=== PATIENT | female | born 1940 | race Caucasian/White ===

== ENCOUNTER → 2017-12-16 11:38 | Outpatient (CLI) | payer MEDICARE, SELFPAY ==
[2017-12-16 14:05] LABS: Absolute Lymphocyte Count 1.22 X10^3/ul (0.83-4.51); Basophil# 0.07 X10^3/uL; Basophil% 1.9 % (0-1); Eosinophil# 0.09 X10^3/uL; Eosinophils% 2.4 % (0-5); Hematocrit 38.8 % (37-47); Hemoglobin 12.6 g/dl (12.0-15.0); Lymphocyte # 1.22 X10^3/ul (4.0); Lymphocyte % 32.5 % (19-41); Mean Corp Hgb Conc 32.5 g/gl (32-36); Mean Corpuscular Hgb 30.7 pg (27.0-32.0); Mean Corpuscular Volume 94.6 fL (81-99); Mean Platelet Vol. 10.5 fl (6.2-12.0); Monocyte# 0.34 X10^3/uL; Monocyte% 9.1 % (0-10); Neutrophil # 2.02 X10^3/uL (2.7-7.7); Neutrophil % 53.8 % (47-70); Platelet Count 271 K/mm3 (150-450); RBC Distribution Width CV 13.1 % (11.6-14.6); RBC Distribution Width SD 45.6 fl (35.1-43.9); White Blood Count 3.8 K/mm3 (4.4-11.0)
[2017-12-16 14:06] LABS: POSITIVE COUNT NO; POSITIVE DIFFERENTIAL NO; POSITIVE MORPHOLOGY NO
[2017-12-16 14:25] LABS: Vitamin B12 369 pg/mL (211-911); Vitamin D,25 Hydroxy 33.8 ng/mL
[2017-12-16 14:29] LABS: AST(SGOT) 24 U/L (15-37); Alanine Aminotransfer ALT/SGPT 22 U/L (12-78); Albumin, Serum 3.9 g/dL (3.4-5.0); Alkaline Phosphatase 30 U/L (45-117); Anion Gap 7 (5-15); BUN 31 mg/dL (7-18); Calcium,Total 9.1 mg/dL (8.5-10.1); Chloride 101 mmol/L (98-107); Creatinine, Serum 1.15 mg/dL (0.55-1.02); EST Glomerular Filtration Rate 48 mL/min (>60); Est Glom Filt Rate - Afr Amer 59 mL/min (>60); Ferritin 146 ng/mL (8-252); Globulin 3.8 g/dL (2.2-4.2); Glucose 70 mg/dL (70-110); Potassium 3.5 mmol/L (3.5-5.1); Protein, Total 7.7 g/dL (6.4-8.2); Sodium Level 140 mmol/L (136-145); T4 Free Direct 1.04 ng/dL (0.76-1.46); Thyroid Stim Hormone (TSH) 1.12 uIU/mL (0.358-3.74)
[2017-12-16 14:42] LABS: Microalbumin,Random Urine 9.6 mg/L (NO RANGE EST.); Microalbumin:Creatinine Ratio 14.1 mg/g CRE (<30 mg/g CRE)
== END ==
PROVIDERS: Family Provider Family Medicine; PCP Family Medicine; Visit Provider Family Medicine
DX: I25.5 Ischemic cardiomyopathy (principal); E53.8 Deficiency of other specified B group vitamins; E03.9 Hypothyroidism, unspecified; R53.83 Other fatigue
CPT/HCPCS: 36415; 80053; 82043; 82306; 82570; 82607; 82728; 82746; 84439; 84443; 85025

== ENCOUNTER 2018-06-14 10:32 | Inpatient (IN) | payer MEDICARE, SELFPAY ==
[2018-06-14] VITALS (10 sets, daily range): BP systolic 113–144; BP diastolic 52–81; PULSE 60–83; RESP 13–19; TEMP 36.4–36.9; O2SAT 92–100; BMI 26.5; BMI 25.0
--- NOTE | 2018-06-14 10:43 | RAD_ITS ---
STUDY: X-RAY CHEST REASON FOR EXAM: Female, 78 years old. Shortness of breath TECHNIQUE: Single AP portable view of the chest. COMPARISON: 09/26/2016 FINDINGS: EKG leads overlie the chest. Stable appearance of a left subclavian pacemaker There are interstitial fibrotic changes of the lungs. There is no demonstrated pleural abnormality. Sternal cerclage wires and vascular clips are present from a prior sternotomy and coronary artery bypass graft procedure (CABG). Normal mediastinum and oc. Normal visualized pulmonary arteries. There is atherosclerotic calcification of the aortic arch with tortuosity. There are diffuse degenerative changes of the visualized thoracic spine. Normal visualized ribs, clavicles, and shoulders. There is no demonstrated abnormality of the visualized soft tissue structures of the upper abdomen. RAD/Chest 1 View (Portable) IMPRESSION: Degenerative changes, as described above. No demonstrated acute cardiopulmonary process. No interval change Electronically Signed: Eamon Moreland MD at 11:19 EDT , Service support ,
--- NOTE | 2018-06-14 10:43 | EKG12_ITS ---
Test Reason : Blood Pressure : / mmHG Vent. Rate : 072 BPM Atrial Rate : 072 BPM P-R Int : 144 ms QRS Dur : 210 ms QT Int : 512 ms P-R-T Axes : 000 -84 111 degrees QTc Int : 560 ms AV dual-paced rhythm Abnormal ECG Confirmed by ESTEFANÍA VELÁZQUEZ, ZULEYMA ([id number]), medical transcription editor CHRISTO NG ([id number]) on 06/16/2018 1:38:27 PM Referred By: Brenden Hamm Confirmed By:ZULEYMA JOSÉ MD
[2018-06-14 10:57] LABS: Absolute Lymphocyte Count 0.88 X10^3/ul (0.83-4.51); Absolute Neutrophil Count 1.2 X10^3/uL (2.0-7.7); Basophil# 0.05 X10^3/uL; Eosinophil# 0.09 X10^3/uL; Eosinophils% 3.5 % (0-5); Hematocrit 34.3 % (37-47); Hemoglobin 11.6 g/dl (12.0-15.0); Lymphocyte # 0.88 X10^3/ul (4.0); Lymphocyte % 34.6 % (19-41); Mean Corp Hgb Conc 33.8 g/gl (32-36); Mean Corpuscular Hgb 31.7 pg (27.0-32.0); Mean Corpuscular Volume 93.7 fL (81-99); Mean Platelet Vol. 10.5 fl (6.2-12.0); Monocyte# 0.28 X10^3/uL; Neutrophil # 1.24 X10^3/uL (2.7-7.7); Neutrophil % 48.9 % (47-70); POSITIVE COUNT NO; POSITIVE DIFFERENTIAL NO; POSITIVE MORPHOLOGY NO; Platelet Count 236 K/mm3 (150-450); RBC Distribution Width CV 12.5 % (11.6-14.6); RBC Distribution Width SD 41.6 fl (35.1-43.9); Red Blood Count 3.66 M/mm3 (4.2-5.4); White Blood Count 2.5 K/mm3 (4.4-11.0)
[2018-06-14 11:11] LABS: Anion Gap 8 (5-15); BUN 48 mg/dL (7-18); Calcium,Total 8.7 mg/dL (8.5-10.1); Chloride 104 mmol/L (98-107); Creatinine, Serum 1.92 mg/dL (0.55-1.02); EST Glomerular Filtration Rate 27 mL/min (>60); Est Glom Filt Rate - Afr Amer 32 mL/min (>60); Estimated Creatinine Clearance 21.38 ml/min; Glucose 144 mg/dL (74-106); Sodium Level 142 mmol/L (136-145)
--- NOTE | 2018-06-14 12:53 | ED.VISSUMM ---
- ER Visit Summary Date of Service: 06/14/18 Chief Complaint: Syncopal episode History of Present Illness: The patient is a 78 F who arrived by ambulance after witnessed syncopal episode. Syncopal episode was witnessed by and 2 nursing aides. She had no prodrome. She was diaphoretic and apparently complained of nausea. She has no recall of what occurred. She states she woke up. She was told she passed out. There was no seizure activity. Is no incontinence of urine or stool. There is no postictal state. She denies biting her lip or tongue. She presently complains of nausea and generalized weakness. Review of systems otherwise unremarkable. Her daughter informed us that she has history of coronary disease, CHF, nonischemic cardiomyopathy, hypertension, hypercholesterolemia and prior CVA. She had a similar presentation when she was diagnosed with an [place]. Physical Examination: Vital signs are normal. She is not febrile nor is she hypoxic. Head is atraumatic normocephalic. Pupils are equal round reactive. Extraocular muscles are intact. TMs are pearly white with landmarks noted. Nares patent with no drainage. Posterior pharynx without erythema or exudate. Uvula is midline. There is no dysphonia or dysphasia. Trachea is midline. There is no stridor with auscultation of the neck. There is a well-healed median sternotomy scar noted. Heart is regular without murmur, gallop or rub. S1 and S2 are normal. Lungs are clear to auscultation with good movement of air bilaterally. Abdomen is soft nontender. No palpable, pulsatile mass or abdominal bruit. There is no hepatosplenomegaly. Lower extremity exam is remarkable for pitting edema. PT pulses palpable bilaterally and symmetric. Neuro exam is nonfocal. Test Results: EKG reveals AV sequential paced rhythm. CBC is remarkable for neutropenia, which patient had in the past. Anemia which is chronic. Troponins less than 0.015. Glucose elevated 144 and creatinine is 1.92. Most recent creatinine is 1.15. Emergency Department Course and Treatment: To evaluate patient's syncopal episode obtain an EKG and appropriate blood work. Treatment Plan: Since she had no prodrome presentation similar to when she had an [place] hospitalist has been called for admission with consult to for you is her barrel cutter. Disposition: PCU Impression: 1. Syncope 2. Acute kidney injury 3. Nonischemic cardia myopathy 4. History of coronary disease status post bypass surgery 5. History of hypertension 6. History of CVA This note was generated with [employer] dictation software. It may contain incorrect words, spelling, and punctuation that were not noted in review of the chart prior to signing ED Disposition - Plan for ED Patient: Chief Complaint: Syncope Referrals: Paul Cho MD [Primary Care Provider] -
--- NOTE | 2018-06-14 12:59 | ED.DCSUM_ITS ---
- ER Visit Summary Date of Service: 06/14/18 Chief Complaint: Syncopal episode History of Present Illness: The patient is a 78 F who arrived by ambulance after witnessed syncopal episode. Syncopal episode was witnessed by and 2 nursing aides. She had no prodrome. She was diaphoretic and apparently complained of nausea. She has no recall of what occurred. She states she woke up. She was told she passed out. There was no seizure activity. Is no incontinence of urine or stool. There is no postictal state. She denies biting her lip or tongue. She presently complains of nausea and generalized weakness. Review of systems otherwise unremarkable. Her daughter informed us that she has history of coronary disease, CHF, nonischemic cardiomyopathy, hypertension, hypercholesterolemia and prior CVA. She had a similar presentation when she was diagnosed with an [place]. Physical Examination: Vital signs are normal. She is not febrile nor is she hypoxic. Head is atraumatic normocephalic. Pupils are equal round reactive. Extraocular muscles are intact. TMs are pearly white with landmarks noted. Nares patent with no drainage. Posterior pharynx without erythema or exudate. Uvula is midline. There is no dysphonia or dysphasia. Trachea is midline. There is no stridor with auscultation of the neck. There is a well-healed median sternotomy scar noted. Heart is regular without murmur, gallop or rub. S1 and S2 are normal. Lungs are clear to auscultation with good movement of air bilaterally. Abdomen is soft nontender. No palpable, pulsatile mass or abdominal bruit. There is no hepatosplenomegaly. Lower extremity exam is remarkable for pitting edema. PT pulses palpable bilaterally and symmetric. Neuro exam is nonfocal. Test Results: EKG reveals AV sequential paced rhythm. CBC is remarkable for neutropenia, which patient had in the past. Anemia which is chronic. Troponins less than 0.015. Glucose elevated 144 and creatinine is 1.92. Most recent creatinine is 1.15. Emergency Department Course and Treatment: To evaluate patient's syncopal episode obtain an EKG and appropriate blood work. 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 Disposition: PCU Impression: 1. Syncope 2. Acute kidney injury 3. Nonischemic cardia myopathy 4. History of coronary disease status post bypass surgery 5. History of hypertension 6. History of CVA This note was generated with [employer] dictation software. It may contain incorrect words, spelling, and punctuation that were not noted in review of the chart prior to signing ED Disposition - Plan for ED Patient: Chief Complaint: Syncope Referrals: Paul Cho MD [Primary Care Provider] -
--- NOTE | 2018-06-14 13:20 | CM.ED ---
Social Work Note Call from pt's daughter, Laura, requesting that SW speak with pt and spouse regarding SNF. Introduced self and role at [facility]. The pt is accompanied by her spouse, daughter and granddaughter. Daughter, Gustavo, requests to speak with SW outside of the room, and granddaughter, Carmen, accompanies. Gustavo states that the pt is not strong enough to take care of herself right now, and certainly not strong enough to take care of her spouse either. Claims that she and her sisters check on them daily and assist with meals and management of the home. They express concern with the pt's forgetfulness stating that the pt fed her spouse, and had forgotten she had already eaten too. Discuss that the pt and her spouse would have to be agreeable to placement, and then insurance would have to approve placement and if they do it would not be long-term, but only short-term for the duration of time it takes to regain strength. Understanding expressed. SW accompanied Gustavo and Carmen back into the room to discuss with pt and spouse. Pt reports to live with her spouse in a split level home. They do have to access each floor as the laundry is on the lowest level, kitchen is on the second, and bedroom is on the third. Pt denies access issues with the steps and claims there is a handrail. Granddaughter, Carmen, does express concern with falls and states that they have fallen in the past and the home is hardwood floors. Pt denies using DME for ambulation and reports that they do have a walk-in shower, grab bars and shower chair. Pt reports be independent with ADL's such as dressing and bathing, but reports that her family does assist with meal preparation. Discuss with the pt that PT/OT would be ordered throughout her stay and inquire if they recommended SNF if she would consider this option. Pt states yes. Spouse and her discuss that their PCP - Dr. Cho discussed this with them and recommended it as well. Review list of facilities that are in network with insurance and pt and spouse would like a referral made to [facility] [place]. List of in network facilities left with pt and spouse to review and informed that SW would initiate referral and pass along to the SW on the assigned unit. No further questions at this time. Placed call to Vidya Jarquin, vegetable preparer, at [facility], and faxed referral for review at [phone]. SW to continue to follow and assist with discharge planning. Plan: SNF pending acceptance and pre-cert. Carmen Alcazar, CARD CUTTER HELPER, SCREW MACHINE TENDER
--- NOTE | 2018-06-14 13:31 | NURSING ---
Johnson notified patient may transfer to PCU.
--- NOTE | 2018-06-14 13:51 | ECHOD_ITS ---
Reason For Study: Syncope Procedure This was a 2D Doppler, Color Flow transthoracic echocardiogram. Exam performed portable in patient room. Left Ventricle Mild concentric left ventricular hypertrophy. The estimated ejection fraction is 60 %. Paced septal motion. No regional wall motion abnormalities noted. Right Ventricle Normal size and thickness. ICD or pacer leads identified within the right ventricle. Normal systolic function. Atria The left atrium is severely enlarged. The right atrium is mildly enlarged. Normal atrial septum. Mitral Valve Mild diffuse mitral valve thickening. Tricuspid Valve Normal tricuspid valve. Mild (1+) tricuspid valve insufficiency. Right ventricular systolic pressure estimated to be 38 mmHg. Mild pulmonary hypertension. Aortic Valve Trisinus/trileaflet aortic valve. Mild diffuse aortic valve thickening. Trivial aortic valve insufficiency. Pulmonic Valve Normal pulmonic valve. Moderate (2+) pulmonic valve insufficiency. Great Vessels Normal aortic root. Normal arch. Normal inferior vena cava. Inferior vena cava collapse with sniff. Pericardium/Pleural No pericardial effusion. MMode/2D Measurements & Calculations LVIDd: 4.2 cm IVSd: 1.4 cm Ao root diam: 3.4 cm LVIDs: 2.7 cm LVPWd: 1.3 cm LA dimension: 3.7 cm FS: 35.4 % LAV(MOD-bp): 81.8 ml LVAd ap4: 23.3 cm2 SV(MOD-sp4): 31.7 ml LAV(MOD-bp) Indexed: 46.7 ml/m2 EDV(MOD-sp4): 63.3 ml LAV(MOD-sp2): 58.2 ml EDV(sp4-el): 64.3 ml LAV(MOD-sp4): 99.4 ml LVAs ap4: 15.2 cm2 ESV(MOD-sp4): 31.6 ml ESV(sp4-el): 30.3 ml EF(MOD-sp4): 50.1 % EF(sp4-el): 52.9 % SV(sp4-el): 34.0 ml LA A4 area: 27.4 cm2 RA A4 area: 21.0 cm2 Time Measurements MV dec time: 0.21 sec Doppler Measurements & Calculations MV E max ryan: 80.6 cm/sec Lat Peak E' Ryan: 11.2 cm/sec MV V2 max: 82.0 cm/sec MV A max ryan: 31.7 cm/sec E/E' lat: 7.2 MV max P.7 mmHg MV E/A: 2.5 MV V2 mean: 34.3 cm/sec MV mean P.63 mmHg MV V2 VTI: 19.5 cm MV P1/2t max ryan: 82.0 cm/sec Ao V2 max: 133.9 cm/sec LV V1 max: 76.8 cm/sec MV P1/2t: 63.7 msec Ao max P.2 mmHg LV V1 max P.4 mmHg MV dec slope: 376.8 cm/sec2 Ao V2 mean: 89.6 cm/sec LV V1 mean P.1 mmHg MVA(P1/2t): 3.5 cm2 Ao mean P.7 mmHg LV V1 mean: 48.2 cm/sec Ao V2 VTI: 28.0 cm LV V1 VTI: 13.9 cm PA V2 max: 71.0 cm/sec PI dec slope: 185.2 cm/sec2 TR max ryan: 287.8 cm/sec TR max P.1 mmHg Interpretation Summary Mild concentric left ventricular hypertrophy. The estimated ejection fraction is 60 %. The left atrium is severely enlarged. The right atrium is mildly enlarged. Mild (1+) tricuspid valve insufficiency. Right ventricular systolic pressure estimated to be 38 mmHg. Mild pulmonary hypertension. Trivial aortic valve insufficiency. Compared to echo report dated 09/20/2016, LV function has improved from 45% to 60 %. RVSP has worsened from 30 to 38 mm Hg. Ordering Physician: Vincent Monet Referring Physician: Brenden Hamm Performed By: Sae Long RCS
--- NOTE | 2018-06-14 13:51 | CDU_ITS ---
Reason For Study: Syncope Rt. Velocities/BP Lt. Velocities/BP Prox CCA 95/11 cm/sec. Prox CCA 84/18 cm/sec. Mid CCA 85/15 cm/sec. Mid CCA 78/12 cm/sec. Dist CCA 68/13 cm/sec. Dist CCA 57/11 cm/sec. Prox ICA 108/21 cm/sec. Prox ICA 63/18 cm/sec. Mid ICA 63/13 cm/sec. Mid ICA 94/26 cm/sec. Dist ICA 62/16 cm/sec. Dist ICA 120/31 cm/sec. Rt. ICA/CCA = 1.27. Lt. ICA/CCA = 1.54. Prox ECA 79/6 cm/sec. Prox ECA 86/5 cm/sec. Rt. Vert. 73/13 cm/sec. Lt. Vert. 72/14 cm/sec. Right Extracranial There is heterogeneous, irregular atherosclerotic plaque noted in the right common carotid artery. There is heterogeneous, irregular atherosclerotic plaque noted in the right internal carotid artery. There is heterogeneous, irregular atherosclerotic plaque noted in the right external carotid artery. Antegrade flow is noted in the right vertebral artery. Left Extracranial There is heterogeneous, irregular atherosclerotic plaque noted in the left common carotid artery. There is heterogeneous, irregular atherosclerotic plaque noted in the left internal carotid artery. There is heterogeneous, irregular atherosclerotic plaque noted in the left external carotid artery. Antegrade flow is noted in the left vertebral artery. Procedure Carotid Duplex 21983. Exam performed portable in patient room. Interpretation Summary Mild (<50%) stenosis right extracranial internal carotid. Mild (<50%) stenosis left extracranial internal carotid. Flow within the vertebral arteries is antegrade bilaterally. Ordering Physician: Vincent Monet Referring Physician: Paul Cho Performed By: Gale Stephenson, RDOFELIA, RVT
[2018-06-14] MEDS: Gabapentin 300 MG Capsule PO (16:03)
--- NOTE | 2018-06-14 17:27 | PCM.CONS.C ---
Problem List (1) Syncope Status: Acute (2) Old non-ST elevation myocardial infarction (NSTEMI) Status: Chronic (3) Atherosclerosis of coronary artery of [place] heart without angina pectoris Status: Chronic Comment: CABG x 1 BRITO-LAD 04/22/2014 (4) H/O coronary artery bypass surgery Status: Chronic Comment: CABG x 1 BRITO-LAD 04/22/2014 @ [facility] (5) Presence of cardiac pacemaker Status: Chronic Comment: @ [facility] 04/25/14 RA Lead Revision 04/26/14 (6) Chronic atrial fibrillation Status: Chronic (7) Hypertension Status: Chronic (8) Hyperlipidemia Status: Chronic Reason for Consult Date of Consultation: 06/14/18 Reason for Consultation: Syncope, coronary disease, hypertension, atrial fibrillation, previous CVA History of Present Illness: The patient is a 78 year old F, patient of Dr. Pineda with a history of atrial fibrillation Eliquis, hypertension, hypercholesterolemia, ischemic cardiomyopathy, coronary artery disease status post single-vessel bypass surgery BRITO to the LAD in the past. The patient was standing in her kitchen talking to her who is being assisted by to physical therapy nurses, when she began developing nausea, diaphoresis, lightheadedness and apparently was intercepted from hitting the floor during a syncopal event. She had no seizure-like activity, loss of bowel or bladder function, and was placed in a chair. She spontaneously awoke, and was brought to [facility] ER. Initially her EKG showed AV pacing with left bundle branch pattern, but she had no chest pain symptoms. She reports that she had a CVA about 4 years ago but despite this is fairly active at home. Prior to this event she denied any previous syncope, chest pain or angina. Orthostatic evaluation was negative, and we are awaiting pacemaker evaluation. 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 She has had no changes in her gabapentin or other medications. [] Past Medical History Allergies/Adverse Reactions: Allergies No Known Allergies Allergy (Verified 06/14/18 10:37) Home Medications: Ambulatory Orders Medication Instructions Recorded Fenofibrate [Lofibra] 160 mg PO DAILY 11/21/13 Levothyroxine [Synthroid] 50 mcg PO DAILY 11/21/13 Escitalopram Oxalate [Lexapro] 20 mg PO DAILY #30 tab 05/16/14 Apixaban [Eliquis] 5 mg PO BID 02/25/15 Iron Poly/Vit C [Niferex-150] 150 mg PO DAILYCM #30 cap 08/22/15 Pantoprazole Sodium [Protonix] 40 mg PO DAILY #30 tab 08/22/15 Ezetimibe [Zetia] 10 mg PO QHS 09/18/16 Furosemide [Lasix] 40 mg PO DAILY 09/18/16 Potassium Chloride [Klor-Con M20] 20 meq PO DAILY 09/18/16 carbamazepine 100 mg chewable 100 mg PO TID 04/22/18 tablet carvedilol 12.5 mg tablet 12.5 mg PO BID 04/22/18 gabapentin 300 mg capsule 300 mg PO TID cap 04/22/18 losartan 100 mg tablet 100 mg PO QDAY #90 tab 05/23/18 Cholecalciferol (Vitamin D3) 2,000 unit PO DAILY 06/14/18 [Vitamin D3] Past Medical History (Chronic Problems): Chronic Problems (Last Reviewed 05/05/18 @ 18:08 by Rylan Kruse MD) Chronic diastolic heart failure (Chronic) Non-ischemic cardiomyopathy (Chronic) SA node dysfunction (Chronic) Old non-ST elevation myocardial infarction (NSTEMI) (Chronic) CVA (cerebral vascular accident) (Chronic) Atherosclerosis of coronary artery of [place] heart without angina pectoris (Chronic) CABG x 1 BRITO-LAD 04/22/2014 H/O coronary artery bypass surgery (Chronic 04/22/14) CABG x 1 BRITO-LAD 04/22/2014 @ [facility] Presence of cardiac pacemaker (Chronic 04/25/14) @ [facility] 04/25/14 RA Lead Revision 04/26/14 Chronic atrial fibrillation (Chronic) Hypertension (Chronic) Hyperlipidemia (Chronic) Surgical History: coronary bypass surgery, pacemaker implantation, - - Hemorrhoidectomy. 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 PIER WORKER History: No pertinent PIER WORKER history - *Family History Paternal Family History: Family History (Last Reviewed 05/05/18 @ 18:08 by Rylan Kruse MD) Father CAD (coronary artery disease) Sister CAD (coronary artery disease) Myocardial infarction Hypertension History Items: No pertinent history Maternal Family History: Family History (Last Reviewed 05/05/18 @ 18:08 by Rylan Kruse MD) Father CAD (coronary artery disease) Sister CAD (coronary artery disease) Myocardial infarction Hypertension History Items: Heart Disease, Hypertension Smoking Status: Former smoker Review of Systems - Review of Systems General: Denies: Fever, Night Sweats, Fatigue Cardiovascular: Reports: Near Syncope. Denies: Chest Discomfort, Shortness of Breath, Orthopnea, PND, Peripheral Edema, Palpitations, Lightheadedness, Dizziness, Syncope Respiratory: Denies: Cough, Sputum Production, Hemoptysis Gastrointestinal: Denies: Hematemesis, Hematochezia, Melena Genitourinary: Denies: Dysuria, Hematuria Skin: Denies: Rash Subjectve: Patient sitting in bed, no acute distress. Objective: Vital Signs Temp Pulse Resp BP Pulse Ox 97.8 F 60 15 132/69 H 99 06/14/18 14:20 06/14/18 16:30 06/14/18 14:20 06/14/18 16:30 06/14/18 14:20 Oxygen Flow Rate (L/min) 2 Oxygen Delivery Method Nasal Cannula Weight: 150 lb 5.684 oz Body Mass Index (BMI) 25.0 Orthostatic Vital Signs Start: 06/14/18 16:30 Freq: q24h Status: Active Protocol: Activity Type Activity Date Activity User E-Sign Co-Sign Detail Recorded Client Recorded Date Recorded By Document 06/14/18 16:30 DS [id number] 06/14/18 17:26 DS 06/14/18 16:30 Orthostatic Vitals Standing -Blood Pressure (90/60-120/80) 133/72 H -Extremity Use Left Arm -Pulse Rate (60-100) 60 Sitting -Blood Pressure (90/60-120/80) 144/73 H -Extremity Use Left Arm -Pulse Rate (60-100) 60 Lying -Blood Pressure (90/60-120/80) 132/69 H -Extremity Use Left Arm -Pulse Rate (60-100) 60 General: Awake, Alert, Oriented x 3 HEENT: PERRL, EOMI, Sclera Non Icteric Neck: Supple, Good ROM, No Lymph Node Enlargement Lungs: Clear to auscultation Cardiovascular: Regular Rhythm, Normal S1, Normal S2, No Murmurs, No Rubs, No Gallops Vascular: No Carotid Bruits, Normal Femoral Pulses, Normal Radial Pulses, Normal Dorsalis Pedal Pulse, Normal Posterior Tibial Pulses Abdomen: Bowel Sounds Present, Soft, Non Tender, No HSM, No Organomegaly Extremities: No Cyanosis, No Clubbing, No edema Neurological: No Focal Motor or Sensory Deficit 06/14/18 15:05: Troponin I < 0.015 Rhythm: EKG: ECHO: Stress Test: Cardiac Cath: PCI: CT Surgery: Holter monitor: EPS: PPM: CXR: Chest CT Scan: Assessment/Plan 1. Syncope: Patient appears to have had either presyncopal or syncopal episode while standing in her kitchen. It is possible this may be vasovagal induced or perhaps a problem with her pacemaker. I recommended a pacemaker evaluation. She does not appear to be orthostatic at this time. Code Visit Inpatient E&M: 66718 Init Hosp L2
[2018-06-14] MEDS: carBAMazepine 200 MG Tablet 100 MG PO ×2 (17:31→21:39)
--- NOTE | 2018-06-14 17:37 | CON.PCM_ITS ---
Problem List (1) Syncope Status: Acute (2) Old non-ST elevation myocardial infarction (NSTEMI) Status: Chronic (3) Atherosclerosis of coronary artery of [place] heart without angina pectoris Status: Chronic Comment: CABG x 1 BRITO-LAD 04/22/2014 (4) H/O coronary artery bypass surgery Status: Chronic Comment: CABG x 1 BRITO-LAD 04/22/2014 @ [facility] (5) Presence of cardiac pacemaker Status: Chronic Comment: @ [facility] 04/25/14 RA Lead Revision 04/26/14 (6) Chronic atrial fibrillation Status: Chronic (7) Hypertension Status: Chronic (8) Hyperlipidemia Status: Chronic Reason for Consult Date of Consultation: 06/14/18 Reason for Consultation: Syncope, coronary disease, hypertension, atrial fibrillation, previous CVA History of Present Illness: The patient is a 78 year old F, patient of Dr. Pineda with a history of atrial fibrillation Eliquis, hypertension, hypercholesterolemia, ischemic cardiomyopathy, coronary artery disease status post single-vessel bypass surgery BRITO to the LAD in the past. The patient was standing in her kitchen talking to her who is being assisted by to physical therapy nurses, when she began developing nausea, diaphoresis, lightheadedness and apparently was intercepted from hitting the floor during a syncopal event. She had no seizure-like activity, loss of bowel or bladder function, and was placed in a chair. She spontaneously awoke, and was brought to [facility] ER. Initially her EKG showed AV pacing with left bundle branch pattern, but she had no chest pain symptoms. She reports that she had a CVA about 4 years ago but despite this is fairly active at home. Prior to this event she denied any previous syncope, chest pain or angina. Orthostatic evaluation was negative, and we are awaiting pacemaker evaluation. 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 She has had no changes in her gabapentin or other medications. [] Past Medical History Allergies/Adverse Reactions: Allergies No Known Allergies Allergy (Verified 06/14/18 10:37) Home Medications: Ambulatory Orders Medication Instructions Recorded Fenofibrate [Lofibra] 160 mg PO DAILY 11/21/13 Levothyroxine [Synthroid] 50 mcg PO DAILY 11/21/13 Escitalopram Oxalate [Lexapro] 20 mg PO DAILY #30 tab 05/16/14 Apixaban [Eliquis] 5 mg PO BID 02/25/15 Iron Poly/Vit C [Niferex-150] 150 mg PO DAILYCM #30 cap 08/22/15 Pantoprazole Sodium [Protonix] 40 mg PO DAILY #30 tab 08/22/15 Ezetimibe [Zetia] 10 mg PO QHS 09/18/16 Furosemide [Lasix] 40 mg PO DAILY 09/18/16 Potassium Chloride [Klor-Con M20] 20 meq PO DAILY 09/18/16 carbamazepine 100 mg chewable 100 mg PO TID 04/22/18 tablet carvedilol 12.5 mg tablet 12.5 mg PO BID 04/22/18 gabapentin 300 mg capsule 300 mg PO TID cap 04/22/18 losartan 100 mg tablet 100 mg PO QDAY #90 tab 05/23/18 Cholecalciferol (Vitamin D3) 2,000 unit PO DAILY 06/14/18 [Vitamin D3] Past Medical History (Chronic Problems): Chronic Problems (Last Reviewed 05/05/18 @ 18:08 by Rylan Kruse MD) Chronic diastolic heart failure (Chronic) Non-ischemic cardiomyopathy (Chronic) SA node dysfunction (Chronic) Old non-ST elevation myocardial infarction (NSTEMI) (Chronic) CVA (cerebral vascular accident) (Chronic) Atherosclerosis of coronary artery of [place] heart without angina pectoris ( Chronic) CABG x 1 BRITO-LAD 04/22/2014 H/O coronary artery bypass surgery (Chronic 04/22/14) CABG x 1 BRITO-LAD 04/22/2014 @ [facility] Presence of cardiac pacemaker (Chronic 04/25/14) @ [facility] 04/25/14 RA Lead Revision 04/26/14 Chronic atrial fibrillation (Chronic) Hypertension (Chronic) Hyperlipidemia (Chronic) Surgical History: coronary bypass surgery, pacemaker implantation, - - Hemorrhoidectomy. 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 [employer]ING History: No pertinent [employer] history - *Family History Paternal Family History: Family History (Last Reviewed 05/05/18 @ 18:08 by Rylan Kruse MD) Father CAD (coronary artery disease) Sister CAD (coronary artery disease) Myocardial infarction Hypertension History Items: No pertinent history Maternal Family History: Family History (Last Reviewed 05/05/18 @ 18:08 by Rylan Kruse MD) Father CAD (coronary artery disease) Sister CAD (coronary artery disease) Myocardial infarction Hypertension History Items: Heart Disease, Hypertension Smoking Status: Former smoker Review of Systems - Review of Systems General: Denies: Fever, Night Sweats, Fatigue Cardiovascular: Reports: Near Syncope. Denies: Chest Discomfort, Shortness of Breath, Orthopnea, PND, Peripheral Edema, Palpitations, Lightheadedness, Dizziness, Syncope Respiratory: Denies: Cough, Sputum Production, Hemoptysis Gastrointestinal: Denies: Hematemesis, Hematochezia, Melena Genitourinary: Denies: Dysuria, Hematuria Skin: Denies: Rash Subjectve: Patient sitting in bed, no acute distress. Objective: Vital Signs Temp Pulse Resp BP Pulse Ox 97.8 F 60 15 132/69 H 99 06/14/18 14:20 06/14/18 16:30 06/14/18 14:20 06/14/18 16:30 06/14/18 14:20 Oxygen Flow Rate (L/min) 2 Oxygen Delivery Method Nasal Cannula Weight: 150 lb 5.684 oz Body Mass Index (BMI) 25.0 Orthostatic Vital Signs Start: 06/14/18 16:30 Freq: q24h Status: Active Protocol: Activity Type Activity Date Activity User E-Sign Co-Sign Detail Recorded Client Recorded Date Recorded By Document 06/14/18 16:30 DS [id number] 06/14/18 17:26 DS 06/14/18 16:30 Orthostatic Vitals Standing -Blood Pressure (90/60-120/80) 133/72 H -Extremity Use Left Arm -Pulse Rate (60-100) 60 Sitting -Blood Pressure (90/60-120/80) 144/73 H -Extremity Use Left Arm -Pulse Rate (60-100) 60 Lying -Blood Pressure (90/60-120/80) 132/69 H -Extremity Use Left Arm -Pulse Rate (60-100) 60 General: Awake, Alert, Oriented x 3 HEENT: PERRL, EOMI, Sclera Non Icteric Neck: Supple, Good ROM, No Lymph Node Enlargement Lungs: Clear to auscultation Cardiovascular: Regular Rhythm, Normal S1, Normal S2, No Murmurs, No Rubs, No Gallops Vascular: No Carotid Bruits, Normal Femoral Pulses, Normal Radial Pulses, Normal Dorsalis Pedal Pulse, Normal Posterior Tibial Pulses Abdomen: Bowel Sounds Present, Soft, Non Tender, No HSM, No Organomegaly Extremities: No Cyanosis, No Clubbing, No edema Neurological: No Focal Motor or Sensory Deficit 06/14/18 15:05: Troponin I < 0.015 Rhythm: EKG: ECHO: Stress Test: Cardiac Cath: PCI: CT Surgery: Holter monitor: EPS: PPM: CXR: Chest CT Scan: Assessment/Plan 1. Syncope: Patient appears to have had either presyncopal or syncopal episode while standing in her kitchen. It is possible this may be vasovagal induced or perhaps a problem with her pacemaker. I recommended a pacemaker evaluation. She does not appear to be orthostatic at this time. Code Visit Inpatient E&M: 93172 Init Hosp L2
--- NOTE | 2018-06-14 19:23 | PCM.HP.STD ---
Problem List (1) Syncope Status: Acute Qualifiers: Syncope type: vasovagal syncope Qualified Code(s): R55 - Syncope and collapse History of Present Illness Date of Admission: 06/14/18 Chief Complaint: Syncope The patient is a 78 year old F seen in the emergency room at [facility] after experiencing a presyncopal episode at home while she was seated at a table in her kitchen. Patient does not remember the event, the syncopal episode was witnessed by her who stated that he was in the kitchen and she began to look pale and he asked her to sit down on a chair. After she sat down on the chair, she collapsed briefly and nurses aides were in the room and caught the patient from falling out of the chair. Patient's stated that the patient was only out for less than a minute. Patient had no incontinence, there is no seizure activity noted by the patient's family, again patient does not recall what exactly happened during the episode. Patient denies any chest pain or shortness of breath. Patient has a history of ischemic cardiomyopathy and has a pacemaker. Evaluation in the emergency room included labs which were remarkable for a white blood cell count of 2.5, hemoglobin was 11.6, creatinine was 1.92, and BUN was 48. Glucose was 144. Patient's chest x-ray showed no evidence of CHF, EKG showed a paced rhythm. Patient was admitted to PCU for acute syncopal episode, she will be seen in consultation by cardiology, she will have a carotid duplex study performed, she will have an echocardiogram performed, and she will have her pacemaker interrogated. She will be monitored on telemetry and have cardiac enzymes cycled Past Medical History Past Medical History (Chronic Problems): Chronic Problems (Last Updated 06/14/18 @ 19:34 by Vincent Monet DO) Chronic diastolic heart failure (Chronic) SA node dysfunction (Chronic) Old non-ST elevation myocardial infarction (NSTEMI) (Chronic) CVA (cerebral vascular accident) (Chronic) Atherosclerosis of coronary artery of [place] heart without angina pectoris (Chronic) CABG x 1 BRITO-LAD 04/22/2014 H/O coronary artery bypass surgery (Chronic 04/22/14) CABG x 1 BRITO-LAD 04/22/2014 @ [facility] Presence of cardiac pacemaker (Chronic 04/25/14) @ [facility] 04/25/14 RA Lead Revision 04/26/14 Chronic atrial fibrillation (Chronic) Hypertension (Chronic) Hyperlipidemia (Chronic) Medical History: Medical History (Last Updated 06/14/18 @ 19:34 by Vincent Monet DO) Chronic diastolic heart failure (Chronic) I50.32 Non-ischemic cardiomyopathy (Ruled-out) I42.8 SA node dysfunction (Chronic) I49.5 Old non-ST elevation myocardial infarction (NSTEMI) (Chronic) I25.2 CVA (cerebral vascular accident) (Chronic) I63.9 Atherosclerosis of coronary artery of [place] heart without angina pectoris (Chronic) I25.10 CABG x 1 BRITO-LAD 04/22/2014 Chronic atrial fibrillation (Chronic) I48.2 Hypertension (Chronic) I10 Hyperlipidemia (Chronic) E78.5 Anemia D64.9 Anxiety F41.9 GERD (gastroesophageal reflux disease) K21.9 GI bleed K92.2 Hiatal hernia K44.9 Hypothyroidism E03.9 Liver cyst K76.89 Obstructive sleep apnea G47.33 Allergies No Known Allergies Allergy (Verified 06/14/18 10:37) Home Medications: Ambulatory Orders Medication Instructions Recorded Fenofibrate [Lofibra] 160 mg PO DAILY 11/21/13 Levothyroxine [Synthroid] 50 mcg PO DAILY 11/21/13 Escitalopram Oxalate [Lexapro] 20 mg PO DAILY #30 tab 05/16/14 Apixaban [Eliquis] 5 mg PO BID 02/25/15 Iron Poly/Vit C [Niferex-150] 150 mg PO DAILYCM #30 cap 08/22/15 Pantoprazole Sodium [Protonix] 40 mg PO DAILY #30 tab 08/22/15 Ezetimibe [Zetia] 10 mg PO QHS 09/18/16 Furosemide [Lasix] 40 mg PO DAILY 09/18/16 Potassium Chloride [Klor-Con M20] 20 meq PO DAILY 09/18/16 carbamazepine 100 mg chewable 100 mg PO TID 04/22/18 tablet carvedilol 12.5 mg tablet 12.5 mg PO BID 04/22/18 gabapentin 300 mg capsule 300 mg PO TID cap 04/22/18 losartan 100 mg tablet 100 mg PO QDAY #90 tab 05/23/18 Cholecalciferol (Vitamin D3) 2,000 unit PO DAILY 07/25/18 [Vitamin D3] Surgical History: Surgical History (Last Reviewed 05/05/18 @ 18:08 by Rylan Kruse MD) H/O coronary artery bypass surgery (Chronic) Onset Date: 04/22/14 Z95.1 CABG x 1 BRITO-LAD 04/22/2014 @ [facility] Presence of cardiac pacemaker (Chronic) Onset Date: 04/25/14 Z95.0 @ [facility] 04/25/14 RA Lead Revision 04/26/14 History of left heart catheterization Onset Date: 02/27/15 Z98.890 04/16/14 @ [facility] and 02/27/2015 @ [facility] Surgical History: cataract, coronary bypass surgery, pacemaker implantation, - - Hemorrhoidectomy. 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 Lives: Spouse/ Significant Other Smoking Status: Former smoker Tobacco Use: Non-smoker Alcohol: None Drugs: None - *Family History Paternal Family History: Family History (Last Reviewed 05/05/18 @ 18:08 by Rylan Kruse MD) Father CAD (coronary artery disease) Sister CAD (coronary artery disease) Myocardial infarction Hypertension History Items: No pertinent history Maternal Family History: Family History (Last Reviewed 05/05/18 @ 18:08 by Rylan Kruse MD) Father CAD (coronary artery disease) Sister CAD (coronary artery disease) Myocardial infarction Hypertension History Items: Heart Disease, Hypertension Review of Systems Constitutional: Denies: Anorexia, Chills, Fever, Night Sweats, Malaise, Weakness, Weight Change, Fatigue Eyes: Denies: Blurred vision, Cataracts, Conjunctivae Inflammation, Double vision, Drainage HEENT: Denies: Difficulty Swallowing, Dysphasia, Ear Pain, Eye Pain, Hearing Changes, Nasal bleeding, Nasal Congestion, Post Nasal Drip Cardiovascular: Reports: Syncope. Denies: Chest Pain, Claudication, Chest Pressure, Chest Tightness, Edema, Heaviness, Orthopnea, Palpitations, Paroxysmal Noc. Dyspnea Respiratory: Denies: Cough, Hemoptysis, Pleuritic Pain, Shortness of Breath, Shortness of breath at rest, Shortness of breath upon exertion, Sputum production Gastrointestinal: Denies: Abdominal Pain, Constipation, Diarrhea, Hematemesis, Hematochezia, Nausea, Melena, Vomiting Genitourinary: Denies: Dysuria, Frequency, Hematuria, Hesitancy, Urgency Gynecological: Denies: Breast symptoms Musculoskeletal: Denies: Back Pain, Foot Pain, Hand Pain, Joint Pain, Joint stiffness, Joint swelling, Joint Tenderness, Leg Pain Skin: Denies: Dryness, Jaundice, Pruritis, Rash Neurological: Denies: Blurred vision, Double vision, Slurred speech, Difficulty swallowing, Focal weakness, Headaches, Numbness, Tingling Psychiatric: Denies: Anxiety, Depression, Homicidal Ideations, Suicidal Ideations Endocrine: Denies: Change in Body Habitus, Heat/ Cold Intolerance, Polydipsia, Polyuria Hematologic/ Lymphatic: Denies: Adenopathy, Anemia, Easy Bruising, Easy Bleeding, Petechiae, Purpura VTE Information - Inpt Only VTE Present on Admission: No VTE Mechan Device Prophylaxis: None VTE Pharm Prophylaxis ordered?: No Reason prophylaxis not ordered:: Medical Contraindication - on Eliquis Patient Problems: Active and Suspected Problems (Last Updated 06/14/18 @ 19:34 by Vincent Monet DO) Syncope (Acute) - Physical Exam General: Alert, Oriented x3, Cooperative, No apparent distress, Well developed, Well nourished HEENT: Atraumatic, PERRLA, EOMI, Normocephalic Oral: Moist Mucosa Neck: Supple, No JVD, Negative Carotid Bruits Lungs: Clear to auscultation, Normal air movement, No rhonchi, No wheeze, No rales Cardiovascular: Regular rate, Regular Rhythm, Normal S1, Normal S2, No murmurs, PMI Normal, No rub noted, No Gallop Abdomen: Bowel Sounds Present, Soft, Non Tender, Non-Distended, No hernias noted Extremities: No clubbing, No cyanosis, No edema, Capillary Refill Less than 3 Seconds Skin: No rashes, No breakdown Musculoskeletal: No Tenderness to Palpation of Joints or Extremities Neurological: Cranial nerves II-XII grossly intact, Neuro grossly intact, Muscle tone normal, Sensory exam intact to light touch and pain Psych/Mental Status: Appropriate, Flat Affect, Alert and oriented to time, place, person, mood and affect Vital Signs Temp Pulse Resp BP Pulse Ox 97.8 F 60 15 132/69 H 99 06/14/18 14:20 06/14/18 16:30 06/14/18 14:20 06/14/18 16:30 07/25/18 14:20 Oxygen Flow Rate (L/min) 2 Oxygen Delivery Method Nasal Cannula Weight: 68.2 kg Body Mass Index (BMI) 25.0 Orthostatic Vital Signs Start: 06/14/18 16:30 Freq: q24h Status: Active Protocol: Activity Type Activity Date Activity User E-Sign Co-Sign Detail Recorded Client Recorded Date Recorded By Document 06/14/18 16:30 DS [id number] 06/14/18 17:26 DS 06/14/18 16:30 Orthostatic Vitals Standing -Blood Pressure (90/60-120/80) 133/72 H -Extremity Use Left Arm -Pulse Rate (60-100) 60 Sitting -Blood Pressure (90/60-120/80) 144/73 H -Extremity Use Left Arm -Pulse Rate (60-100) 60 Lying -Blood Pressure (90/60-120/80) 132/69 H -Extremity Use Left Arm -Pulse Rate (60-100) 60 Intake and Output for Last 24 Hours 06/12/18 06/13/18 06/14/18 23:59 23:59 23:59 Intake Total 480 / 480 Balance 480 / 480 Laboratory Tests Past 24 Hrs 06/14/18 06/14/18 15:05 16:57 Troponin I < 0.015 < 0.015 Assessment/Plan All Active Problems (Last Updated 06/14/18 @ 19:34 by Vincent Monet DO) Syncope (Acute) Non-ischemic cardiomyopathy (Ruled-out) Chest pain (Resolved) #1 syncopal episode-probably vasovagal in nature, patient will be admitted to PCU, she will have an echocardiogram ordered, she will be seen in consultation by cardiology, she will have carotid duplex scans performed, she will have her pacemaker interrogated, cardiac enzymes will be cycled #2 elevated creatinine-I suspect this may be due to dehydration, her normal creatinine is much lower, I will place her on IV fluids at 75 cc an hour and hold her Lasix, I will repeat her labs tomorrow #3 coronary artery disease-believed to be stable at this time #4 ischemic cardiomyopathy-echocardiogram will be obtained #5 leukopenia-this appears to be chronic in nature and mild, etiology is unknown at this time #6 hypertension #7 cerebrovascular disease #8 chronic atrial fibrillation with paced rhythm Code Visit Inpatient E&M: 43941 Init Hosp L3
--- NOTE | 2018-06-14 19:26 | HP.PCM_ITS ---
Problem List (1) Syncope Status: Acute Qualifiers: Syncope type: vasovagal syncope Qualified Code(s): R55 - Syncope and collapse History of Present Illness Date of Admission: 06/14/18 Chief Complaint: Syncope The patient is a 78 year old F seen in the emergency room at [facility] after experiencing a presyncopal episode at home while she was seated at a table in her kitchen. Patient does not remember the event, the syncopal episode was witnessed by her who stated that he was in the kitchen and she began to look pale and he asked her to sit down on a chair. After she sat down on the chair, she collapsed briefly and nurses aides were in the room and caught the patient from falling out of the chair. Patient's stated that the patient was only out for less than a minute. Patient had no incontinence, there is no seizure activity noted by the patient's family, again patient does not recall what exactly happened during the episode. Patient denies any chest pain or shortness of breath. Patient has a history of ischemic cardiomyopathy and has a pacemaker. Evaluation in the emergency room included labs which were remarkable for a white blood cell count of 2.5, hemoglobin was 11.6, creatinine was 1.92, and BUN was 48. Glucose was 144. Patient's chest x-ray showed no evidence of CHF, EKG showed a paced rhythm. Patient was admitted to PCU for acute syncopal episode, she will be seen in consultation by cardiology, she will have a carotid duplex study performed, she will have an echocardiogram performed, and she will have her pacemaker interrogated. She will be monitored on telemetry and have cardiac enzymes cycled Past Medical History Past Medical History (Chronic Problems): Chronic Problems (Last Updated 06/14/18 @ 19:34 by Vincent Monet DO) Chronic diastolic heart failure (Chronic) SA node dysfunction (Chronic) Old non-ST elevation myocardial infarction (NSTEMI) (Chronic) CVA (cerebral vascular accident) (Chronic) Atherosclerosis of coronary artery of [place] heart without angina pectoris ( Chronic) CABG x 1 BRITO-LAD 04/22/2014 H/O coronary artery bypass surgery (Chronic 04/22/14) CABG x 1 BRITO-LAD 04/22/2014 @ [facility] Presence of cardiac pacemaker (Chronic 04/25/14) @ [facility] 04/25/14 RA Lead Revision 04/26/14 Chronic atrial fibrillation (Chronic) Hypertension (Chronic) Hyperlipidemia (Chronic) Medical History: Medical History (Last Updated 06/14/18 @ 19:34 by Vincent Monet DO) Chronic diastolic heart failure (Chronic) I50.32 Non-ischemic cardiomyopathy (Ruled-out) I42.8 SA node dysfunction (Chronic) I49.5 Old non-ST elevation myocardial infarction (NSTEMI) (Chronic) I25.2 CVA (cerebral vascular accident) (Chronic) I63.9 Atherosclerosis of coronary artery of [place] heart without angina pectoris ( Chronic) I25.10 CABG x 1 BRITO-LAD 04/22/2014 Chronic atrial fibrillation (Chronic) I48.2 Hypertension (Chronic) I10 Hyperlipidemia (Chronic) E78.5 Anemia D64.9 Anxiety F41.9 GERD (gastroesophageal reflux disease) K21.9 GI bleed K92.2 Hiatal hernia K44.9 Hypothyroidism E03.9 Liver cyst K76.89 Obstructive sleep apnea G47.33 Allergies No Known Allergies Allergy (Verified 06/14/18 10:37) Home Medications: Ambulatory Orders Medication Instructions Recorded Fenofibrate [Lofibra] 160 mg PO DAILY 11/21/13 Levothyroxine [Synthroid] 50 mcg PO DAILY 11/21/13 Escitalopram Oxalate [Lexapro] 20 mg PO DAILY #30 tab 05/16/14 Apixaban [Eliquis] 5 mg PO BID 02/25/15 Iron Poly/Vit C [Niferex-150] 150 mg PO DAILYCM #30 cap 08/22/15 Pantoprazole Sodium [Protonix] 40 mg PO DAILY #30 tab 08/22/15 Ezetimibe [Zetia] 10 mg PO QHS 09/18/16 Furosemide [Lasix] 40 mg PO DAILY 09/18/16 Potassium Chloride [Klor-Con M20] 20 meq PO DAILY 09/18/16 carbamazepine 100 mg chewable 100 mg PO TID 04/22/18 tablet carvedilol 12.5 mg tablet 12.5 mg PO BID 04/22/18 gabapentin 300 mg capsule 300 mg PO TID cap 04/22/18 losartan 100 mg tablet 100 mg PO QDAY #90 tab 05/23/18 Cholecalciferol (Vitamin D3) 2,000 unit PO DAILY 07/25/18 [Vitamin D3] Surgical History: Surgical History (Last Reviewed 05/05/18 @ 18:08 by Rylan Kruse MD) H/O coronary artery bypass surgery (Chronic) Onset Date: 04/22/14 Z95.1 CABG x 1 BRITO-LAD 04/22/2014 @ [facility] Presence of cardiac pacemaker (Chronic) Onset Date: 04/25/14 Z95.0 @ [facility] 04/25/14 RA Lead Revision 04/26/14 History of left heart catheterization Onset Date: 02/27/15 Z98.890 04/16/14 @ [facility] and 02/27/2015 @ [facility] Surgical History: cataract, coronary bypass surgery, pacemaker implantation, - - Hemorrhoidectomy. 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 [employer] History: No pertinent [employer] history Lives: Spouse/ Significant Other Smoking Status: Former smoker Tobacco Use: Non-smoker Alcohol: None Drugs: None - *Family History Paternal Family History: Family History (Last Reviewed 05/05/18 @ 18:08 by Rylan Kruse MD) Father CAD (coronary artery disease) Sister CAD (coronary artery disease) Myocardial infarction Hypertension History Items: No pertinent history Maternal Family History: Family History (Last Reviewed 05/05/18 @ 18:08 by Rylan Kruse MD) Father CAD (coronary artery disease) Sister CAD (coronary artery disease) Myocardial infarction Hypertension History Items: Heart Disease, Hypertension Review of Systems Constitutional: Denies: Anorexia, Chills, Fever, Night Sweats, Malaise, Weakness , Weight Change, Fatigue Eyes: Denies: Blurred vision, Cataracts, Conjunctivae Inflammation, Double vision, Drainage HEENT: Denies: Difficulty Swallowing, Dysphasia, Ear Pain, Eye Pain, Hearing Changes, Nasal bleeding, Nasal Congestion, Post Nasal Drip Cardiovascular: Reports: Syncope. Denies: Chest Pain, Claudication, Chest Pressure, Chest Tightness, Edema, Heaviness, Orthopnea, Palpitations, Paroxysmal Noc. Dyspnea Respiratory: Denies: Cough, Hemoptysis, Pleuritic Pain, Shortness of Breath, Shortness of breath at rest, Shortness of breath upon exertion, Sputum production Gastrointestinal: Denies: Abdominal Pain, Constipation, Diarrhea, Hematemesis, Hematochezia, Nausea, Melena, Vomiting Genitourinary: Denies: Dysuria, Frequency, Hematuria, Hesitancy, Urgency Gynecological: Denies: Breast symptoms Musculoskeletal: Denies: Back Pain, Foot Pain, Hand Pain, Joint Pain, Joint stiffness, Joint swelling, Joint Tenderness, Leg Pain Skin: Denies: Dryness, Jaundice, Pruritis, Rash Neurological: Denies: Blurred vision, Double vision, Slurred speech, Difficulty swallowing, Focal weakness, Headaches, Numbness, Tingling Psychiatric: Denies: Anxiety, Depression, Homicidal Ideations, Suicidal Ideations Endocrine: Denies: Change in Body Habitus, Heat/ Cold Intolerance, Polydipsia, Polyuria Hematologic/ Lymphatic: Denies: Adenopathy, Anemia, Easy Bruising, Easy Bleeding , Petechiae, Purpura VTE Information - Inpt Only VTE Present on Admission: No VTE Mechan Device Prophylaxis: None VTE Pharm Prophylaxis ordered?: No Reason prophylaxis not ordered:: Medical Contraindication - on Eliquis Patient Problems: Active and Suspected Problems (Last Updated 06/14/18 @ 19:34 by Vincent Monet DO) Syncope (Acute) - Physical Exam General: Alert, Oriented x3, Cooperative, No apparent distress, Well developed, Well nourished HEENT: Atraumatic, PERRLA, EOMI, Normocephalic Oral: Moist Mucosa Neck: Supple, No JVD, Negative Carotid Bruits Lungs: Clear to auscultation, Normal air movement, No rhonchi, No wheeze, No rales Cardiovascular: Regular rate, Regular Rhythm, Normal S1, Normal S2, No murmurs, PMI Normal, No rub noted, No Gallop Abdomen: Bowel Sounds Present, Soft, Non Tender, Non-Distended, No hernias noted Extremities: No clubbing, No cyanosis, No edema, Capillary Refill Less than 3 Seconds Skin: No rashes, No breakdown Musculoskeletal: No Tenderness to Palpation of Joints or Extremities Neurological: Cranial nerves II-XII grossly intact, Neuro grossly intact, Muscle tone normal, Sensory exam intact to light touch and pain Psych/Mental Status: Appropriate, Flat Affect, Alert and oriented to time, place , person, mood and affect Vital Signs Temp Pulse Resp BP Pulse Ox 97.8 F 60 15 132/69 H 99 06/14/18 14:20 06/14/18 16:30 06/14/18 14:20 06/14/18 16:30 07/25/18 14:20 Oxygen Flow Rate (L/min) 2 Oxygen Delivery Method Nasal Cannula Weight: 68.2 kg Body Mass Index (BMI) 25.0 Orthostatic Vital Signs Start: 06/14/18 16:30 Freq: q24h Status: Active Protocol: Activity Type Activity Date Activity User E-Sign Co-Sign Detail Recorded Client Recorded Date Recorded By Document 06/14/18 16:30 DS [id number] 06/14/18 17:26 DS 06/14/18 16:30 Orthostatic Vitals Standing -Blood Pressure (90/60-120/80) 133/72 H -Extremity Use Left Arm -Pulse Rate (60-100) 60 Sitting -Blood Pressure (90/60-120/80) 144/73 H -Extremity Use Left Arm -Pulse Rate (60-100) 60 Lying -Blood Pressure (90/60-120/80) 132/69 H -Extremity Use Left Arm -Pulse Rate (60-100) 60 Intake and Output for Last 24 Hours 06/12/18 06/13/18 06/14/18 23:59 23:59 23:59 Intake Total 480 / 480 Balance 480 / 480 Laboratory Tests Past 24 Hrs 06/14/18 06/14/18 15:05 16:57 Troponin I < 0.015 < 0.015 Assessment/Plan All Active Problems (Last Updated 06/14/18 @ 19:34 by Vincent Monet DO) Syncope (Acute) Non-ischemic cardiomyopathy (Ruled-out) Chest pain (Resolved) #1 syncopal episode-probably vasovagal in nature, patient will be admitted to PCU, she will have an echocardiogram ordered, she will be seen in consultation by cardiology, she will have carotid duplex scans performed, she will have her pacemaker interrogated, cardiac enzymes will be cycled #2 elevated creatinine-I suspect this may be due to dehydration, her normal creatinine is much lower, I will place her on IV fluids at 75 cc an hour and hold her Lasix, I will repeat her labs tomorrow #3 coronary artery disease-believed to be stable at this time #4 ischemic cardiomyopathy-echocardiogram will be obtained #5 leukopenia-this appears to be chronic in nature and mild, etiology is unknown at this time #6 hypertension #7 cerebrovascular disease #8 chronic atrial fibrillation with paced rhythm Code Visit Inpatient E&M: 40299 Init Hosp L3
[2018-06-14] MEDS: APIXABAN 5 MG TABLET PO (21:40)
[2018-06-14] MEDS: Ezetimibe 10 MG Tablet PO (21:40)
[2018-06-14] MEDS: Carvedilol 12.5 MG Tablet PO (21:40)
[2018-06-14] MEDS: 0.9% Normal Saline 1,000 ML 100 ML IV (21:48)
[2018-06-15] VITALS (11 sets, daily range): BP systolic 119–182; BP diastolic 62–82; PULSE 59–63; RESP 16–18; TEMP 36.3–36.8; O2SAT 93–96
[2018-06-15] MEDS: Calcium Carbonate 500 MG Tablet PO ×2 (02:25→16:50)
[2018-06-15] MEDS: Levothyroxine 50 MCG Tablet PO (05:22)
[2018-06-15] MEDS: carBAMazepine 200 MG Tablet 100 MG PO ×2 (05:22→21:20)
[2018-06-15 05:46] LABS: Hematocrit 36.6 % (37-47); Hemoglobin 12.5 g/dl (12.0-15.0); Mean Corp Hgb Conc 34.2 g/gl (32-36); Mean Corpuscular Hgb 31.8 pg (27.0-32.0); Mean Corpuscular Volume 93.1 fL (81-99); Mean Platelet Vol. 10.8 fl (6.2-12.0); Platelet Count 230 K/mm3 (150-450); RBC Distribution Width CV 12.3 % (11.6-14.6); RBC Distribution Width SD 41.4 fl (35.1-43.9); Red Blood Count 3.93 M/mm3 (4.2-5.4); White Blood Count 3.1 K/mm3 (4.4-11.0)
[2018-06-15 05:47] LABS: International Normalized Ratio 1.2; Partial Thromboplast Time 34.5 Seconds (24.1-36.2); Prothrombin Time (Protime)PT. 15.5 SECONDS (11.7-14.9)
[2018-06-15] MEDS: Losartan Potassium 100 MG Tablet PO (05:52)
--- NOTE | 2018-06-15 05:55 | EKG12_ITS ---
Test Reason : AM EKG Blood Pressure : / mmHG Vent. Rate : 060 BPM Atrial Rate : 066 BPM P-R Int : 154 ms QRS Dur : 216 ms QT Int : 530 ms P-R-T Axes : 000 -83 115 degrees QTc Int : 530 ms AV dual-paced rhythm Abnormal ECG Confirmed by ESTEFANÍA VELÁZQUEZ, ZULEYMA ([id number]), associate entertainment editor CHRISTO NG ([id number]) on 06/16/2018 1:45:20 PM Referred By: Brenden Hamm Confirmed By:ZULEYMA JOSÉ MD
[2018-06-15 06:01] LABS: Anion Gap 6 (5-15); BUN 38 mg/dL (7-18); BUN/Creat Ratio 29.5 RATIO (10-20); Calcium,Total 9.1 mg/dL (8.5-10.1); Chloride 110 mmol/L (98-107); Creatinine, Serum 1.29 mg/dL (0.55-1.02); EST Glomerular Filtration Rate 42 mL/min (>60); Est Glom Filt Rate - Afr Amer 51 mL/min (>60); Estimated Creatinine Clearance 31.82 ml/min; Glucose 99 mg/dL (74-106); Potassium 3.9 mmol/L (3.5-5.1); Sodium Level 147 mmol/L (136-145)
[2018-06-15 06:09] LABS: Scan Indicated on CBC? Y/N NO
--- NOTE | 2018-06-15 08:45 | STE_ITS ---
Reason For Study: Syncope Stress Results Protocol: Dobutamine Stress Echo Maximum Predicted HR: 141 bpm Target HR: 120 bpm% Maximum Pre dicted HR: 87 % DurationHeart Rate Stage (mm:ss) (bpm) BPCom ment Baseline 62 160/80 No Chest Pain DSE 10 MCG 3:17 60 167/76No Chest Pain DSE 20 MCG 3:14 86 173/62No Chest Pain DSE 30 MCG 3:00 90 147/81No Chest Pain DSE 40 MCG 2:46 12 2 129/67No Chest Pain; Atropine 0.25 MG IVP Recovery 61 130/63 No Chest Pain Stress Duration: 12:17 mm:ss Maximum Stress HR: 122 bpmME TS: 1 Baseline Echocardiogram Findings The estimated ejection fraction is 55 %. Stress Echo Wall motion Data Resting WMIntermediate WMStress WM Resting Wall Motion Wall Motion Stress No regional wall motion No regional wall motion abnormalities noted. abnormalities noted. EKG Data AV sequential pacing. The patient was titrated from 10 mcg to a maximum of 40 mcg of dobutamine during the stress. The maximum heart rate attained was 127 beats per minute. This was 90% of maximum predicted heart rate. During dobutamine infusion, there were no ST or T wave changes noted to suggest ischemia. No clinical angina was noted. Interpretation Summary The estimated ejection fraction is 55 %. Normal, adequate, dobutamine echocardiogram. Negative for ischemia by EKG and echocardiographic criteria. No anginal symptoms noted. Patient reverted from AV pacing during the low-dose phase of infusion, and transition into what appears to be a sinus tachycardia with anterolateral T-wave inversion. Appropriate HR response to dobutamine. Rare PVCs noted. No dynamic ST segment changes noted. Final LVEF of 75%. No complications. Ordering Physician: Antonio James Referring Physician: Antonio James Performed By: Ariella Love, ROBERT, RVT
--- NOTE | 2018-06-15 09:46 | PCM.PN.CARD ---
Subjectve: Patient doing well this morning. Telemetry shows AV pacing. No additional syncopal events. No chest pain. Fairly hypertensive today with negative orthostatics. Objective: Vital Signs Temp Pulse Resp BP Pulse Ox 97.4 F L 60 16 171/82 H 93 06/15/18 03:30 06/15/18 07:15 06/15/18 03:30 06/15/18 05:37 06/15/18 03:30 Oxygen Flow Rate (L/min) 2 Oxygen Delivery Method Room Air Weight: 150 lb 5.684 oz Body Mass Index (BMI) 25.0 Orthostatic Vital Signs Start: 06/14/18 16:30 Freq: q24h Status: Active Protocol: Activity Type Activity Date Activity User E-Sign Co-Sign Detail Recorded Client Recorded Date Recorded By Document 06/15/18 05:37 BAM [id number] 06/15/18 05:39 BAM 06/15/18 05:37 Orthostatic Vitals Standing -Blood Pressure (90/60-120/80) 181/79 H -Extremity Use Left Arm -Pulse Rate (60-100) 62 Sitting -Blood Pressure (90/60-120/80) 182/81 H -Extremity Use Left Arm -Pulse Rate (60-100) 63 Lying -Blood Pressure (90/60-120/80) 171/82 H -Extremity Use Left Arm -Pulse Rate (60-100) 61 Intake and Output for Last 24 Hours 06/13/18 06/14/18 06/15/18 23:59 23:59 23:59 Intake Total 682 / 682 544 / 544 Balance 682 / 682 544 / 544 General: Awake, Alert, Oriented x 3 HEENT: PERRL, EOMI, Sclera Non Icteric Neck: Supple, Good ROM, No Lymph Node Enlargement Lungs: Clear to auscultation Cardiovascular: Regular Rhythm, Normal S1, Normal S2, No Murmurs, No Rubs, No Gallops Vascular: No Carotid Bruits, Normal Femoral Pulses, Normal Radial Pulses, Normal Dorsalis Pedal Pulse, Normal Posterior Tibial Pulses Abdomen: Bowel Sounds Present, Soft, Non Tender, No HSM, No Organomegaly Extremities: No Cyanosis, No Clubbing, No edema Neurological: No Focal Motor or Sensory Deficit 06/14/18 15:05: Troponin I < 0.015 06/14/18 16:57: Troponin I < 0.015 06/15/18 05:10: Sodium 147 H, Potassium 3.9, Chloride 110 H, Carbon Dioxide 31.0, Anion Gap 6, BUN 38 H, Creatinine 1.29 H, Est GFR (MDRD) Af Amer 51 L, Est GFR (MDRD) Non-Af 42 L, BUN/Creatinine Ratio 29.5 H, Glucose 99, Calcium 9.1 06/15/18 05:10: WBC 3.1 L, RBC 3.93 L, Hgb 12.5, Hct 36.6 L, MCV 93.1, MCH 31.8, MCHC 34.2, RDW 12.3, RDW Differential 41.4, Plt Count 230, MPV 10.8 06/15/18 05:10: PT 15.5 H, INR 1.2, APTT 34.5 Rhythm: EKG: ECHO: Stress Test: Pending Cardiac Cath: PCI: CT Surgery: Holter monitor: EPS: PPM: CXR: Chest CT Scan: Medical Necessity - Tobacco Use Smoking Status: Former smoker Tobacco Use: Non-smoker Assessment/Plan 1. Syncope: Patient appears to have had either presyncopal or syncopal episode while standing in her kitchen. It is possible this may be vasovagal induced or perhaps a problem with her pacemaker. I recommended a pacemaker evaluation. She does not appear to be orthostatic at this time. In addition, it is possible that she had hypotensive episode which contributed to her syncopal event. Her blood pressure is quite adequate today. Patient feels much better. At this point we will smooth out her antihypertensive medications by changing her losartan from 100 mg's p.o. daily to 50 mg p.o. twice daily, continuing her Coreg at her current dose, and reducing her Lasix down to 20 mg a day. In addition she will undergo a non-walking debridement echocardiogram to determine if she has any ischemia. Her LV function on her echo has improved from 45-60%. If her stress test is negative for inducible ischemia, she will not require a diagnostic coronary angiogram. Pacemaker interrogation is pending. 2. Chronic persistent atrial fibrillation: Continue Eliquis therapy. 3. Thank you very much for the opportunity to participate in the cardiac care of your patient.
--- NOTE | 2018-06-15 09:54 | PN.CARD_ITS ---
Subjectve: Patient doing well this morning. Telemetry shows AV pacing. No additional syncopal events. No chest pain. Fairly hypertensive today with negative orthostatics. Objective: Vital Signs Temp Pulse Resp BP Pulse Ox 97.4 F L 60 16 171/82 H 93 06/15/18 03:30 06/15/18 07:15 06/15/18 03:30 06/15/18 05:37 06/15/18 03:30 Oxygen Flow Rate (L/min) 2 Oxygen Delivery Method Room Air Weight: 150 lb 5.684 oz Body Mass Index (BMI) 25.0 Orthostatic Vital Signs Start: 06/14/18 16:30 Freq: q24h Status: Active Protocol: Activity Type Activity Date Activity User E-Sign Co-Sign Detail Recorded Client Recorded Date Recorded By Document 06/15/18 05:37 BAM [id number] 06/15/18 05:39 BAM 06/15/18 05:37 Orthostatic Vitals Standing -Blood Pressure (90/60-120/80) 181/79 H -Extremity Use Left Arm -Pulse Rate (60-100) 62 Sitting -Blood Pressure (90/60-120/80) 182/81 H -Extremity Use Left Arm -Pulse Rate (60-100) 63 Lying -Blood Pressure (90/60-120/80) 171/82 H -Extremity Use Left Arm -Pulse Rate (60-100) 61 Intake and Output for Last 24 Hours 06/13/18 06/14/18 06/15/18 23:59 23:59 23:59 Intake Total 682 / 682 544 / 544 Balance 682 / 682 544 / 544 General: Awake, Alert, Oriented x 3 HEENT: PERRL, EOMI, Sclera Non Icteric Neck: Supple, Good ROM, No Lymph Node Enlargement Lungs: Clear to auscultation Cardiovascular: Regular Rhythm, Normal S1, Normal S2, No Murmurs, No Rubs, No Gallops Vascular: No Carotid Bruits, Normal Femoral Pulses, Normal Radial Pulses, Normal Dorsalis Pedal Pulse, Normal Posterior Tibial Pulses Abdomen: Bowel Sounds Present, Soft, Non Tender, No HSM, No Organomegaly Extremities: No Cyanosis, No Clubbing, No edema Neurological: No Focal Motor or Sensory Deficit 06/14/18 15:05: Troponin I < 0.015 06/14/18 16:57: Troponin I < 0.015 06/15/18 05:10: Sodium 147 H, Potassium 3.9, Chloride 110 H, Carbon Dioxide 31.0 , Anion Gap 6, BUN 38 H, Creatinine 1.29 H, Est GFR (MDRD) Af Amer 51 L, Est GFR (MDRD) Non-Af 42 L, BUN/Creatinine Ratio 29.5 H, Glucose 99, Calcium 9.1 06/15/18 05:10: WBC 3.1 L, RBC 3.93 L, Hgb 12.5, Hct 36.6 L, MCV 93.1, MCH 31.8 , MCHC 34.2, RDW 12.3, RDW Differential 41.4, Plt Count 230, MPV 10.8 06/15/18 05:10: PT 15.5 H, INR 1.2, APTT 34.5 Rhythm: EKG: ECHO: Stress Test: Pending Cardiac Cath: PCI: CT Surgery: Holter monitor: EPS: PPM: CXR: Chest CT Scan: Medical Necessity - Tobacco Use Smoking Status: Former smoker Tobacco Use: Non-smoker Assessment/Plan 1. Syncope: Patient appears to have had either presyncopal or syncopal episode while standing in her kitchen. It is possible this may be vasovagal induced or perhaps a problem with her pacemaker. I recommended a pacemaker evaluation. She does not appear to be orthostatic at this time. In addition, it is possible that she had hypotensive episode which contributed to her syncopal event. Her blood pressure is quite adequate today. Patient feels much better. At this point we will smooth out her antihypertensive medications by changing her losartan from 100 mg's p.o. daily to 50 mg p.o. twice daily, continuing her Coreg at her current dose, and reducing her Lasix down to 20 mg a day. In addition she will undergo a non-walking debridement echocardiogram to determine if she has any ischemia. Her LV function on her echo has improved from 45-60%. If her stress test is negative for inducible ischemia, she will not require a diagnostic coronary angiogram. Pacemaker interrogation is pending. 2. Chronic persistent atrial fibrillation: Continue Eliquis therapy. 3. Thank you very much for the opportunity to participate in the cardiac care of your patient.
--- NOTE | 2018-06-15 12:07 | CASEMGMT ---
Social Work Met with pt, spouse, dgt Laura and granddgt Carmen. Explained that referral has been made to [facility] and awaiting return call. Pt and spouse both wanting to admit to the [facility] and wanting to share a room. Phone call to Vidya at [facility]. They do have beds available but rooms are private and they cannot provide a room beside each other at this time. They are able to accept pt if they are agreeable to the private rooms. SW met with pt, spouse and granddgt and explained situation. They express understanding and are agreeable. Addition requested information faxed to [facility] with request to start precert. CASH will continue to follow. Plan: [facility], pending insurance precert MILANA Lombardo
[2018-06-15] MEDS: Gabapentin 300 MG Capsule PO (16:50)
--- NOTE | 2018-06-15 19:36 | PCM.PROGNOTE ---
Patient Problems: Active and Suspected Problems (Last Updated 06/14/18 @ 19:34 by Vincent Monet DO) Syncope (Acute) Subjective: Patient was seen and examined today, I talked with her granddaughter who is in the room today as well as her , patient had a dobutamine stress echo today which was negative for reversible ischemia, patient is decided along with her family that she would like to go to an extended care facility for rehab services, PT and OT were written to see the patient and evaluate her today. No obvious reason for her syncope was found, the most likely explanation is probably orthostatic hypotension-patient's creatinine was elevated yesterday, it has corrected somewhat with fluid administration, I have stopped her fluids today because I do not believe she currently needs continued fluid. Cardiology adjusted her cardiac medications to prevent hypotension. - Physical Exam General: Alert, Oriented x3, Cooperative, No apparent distress, Well developed HEENT: Atraumatic, PERRLA, EOMI, Normocephalic Oral: Moist Mucosa Neck: Supple, No JVD, No Nuchal Rigidity, Trachea Midline, Thyroid Normal Size and Texture Lungs: Clear to auscultation, Normal air movement, No rhonchi, No wheeze, No rales Cardiovascular: Regular rate, Regular Rhythm, Normal S1, Normal S2, No murmurs, No Ectopic Activity, PMI Normal, No rub noted, No Gallop Abdomen: Bowel Sounds Present, Soft, Non Tender, Non-Distended, No hernias noted Extremities: No edema, Capillary Refill Less than 3 Seconds Skin: No rashes, No breakdown Musculoskeletal: No Tenderness to Palpation of Joints or Extremities Neurological: Cranial nerves II-XII grossly intact, Neuro grossly intact, Sensory exam intact to light touch and pain Psych/Mental Status: Appropriate, Flat Affect, Alert and oriented to time, place, person, mood and affect Vital Signs Temp Pulse Resp BP Pulse Ox 98.3 F 60 18 119/63 94 06/15/18 15:19 06/15/18 15:19 06/15/18 15:19 06/15/18 15:19 06/15/18 15:19 Oxygen Flow Rate (L/min) 2 Oxygen Delivery Method Room Air Weight: 68.2 kg Body Mass Index (BMI) 25.0 Orthostatic Vital Signs Start: 06/14/18 16:30 Freq: q24h Status: Active Protocol: Activity Type Activity Date Activity User E-Sign Co-Sign Detail Recorded Client Recorded Date Recorded By Document 06/15/18 05:37 BAM [id number] 06/15/18 05:39 BAM 06/15/18 05:37 Orthostatic Vitals Standing -Blood Pressure (90/60-120/80) 181/79 H -Extremity Use Left Arm -Pulse Rate (60-100) 62 Sitting -Blood Pressure (90/60-120/80) 182/81 H -Extremity Use Left Arm -Pulse Rate (60-100) 63 Lying -Blood Pressure (90/60-120/80) 171/82 H -Extremity Use Left Arm -Pulse Rate (60-100) 61 Intake and Output for Last 24 Hours 06/13/18 06/14/18 06/15/18 23:59 23:59 23:59 Intake Total 682 / 682 544 / 544 Balance 682 / 682 544 / 544 Laboratory Tests Past 24 Hrs 06/15/18 06/15/18 06/15/18 05:10 05:10 05:10 WBC 3.1 L RBC 3.93 L Hgb 12.5 Hct 36.6 L MCV 93.1 MCH 31.8 MCHC 34.2 RDW 12.3 RDW Differential 41.4 Plt Count 230 MPV 10.8 PT 15.5 H INR 1.2 APTT 34.5 Sodium 147 H Potassium 3.9 Chloride 110 H Carbon Dioxide 31.0 Anion Gap 6 BUN 38 H Creatinine 1.29 H Estim Creat Clear Calc 31.82 Est GFR (MDRD) Af Amer 51 L Est GFR (MDRD) Non-Af 42 L BUN/Creatinine Ratio 29.5 H Glucose 99 Calcium 9.1 Medical Necessity - Tobacco Use Smoking Status: Former smoker Tobacco Use: Non-smoker Assessment/Plan All Active Problems (Last Updated 06/14/18 @ 19:34 by Vincent Monet DO) Syncope (Acute) Non-ischemic cardiomyopathy (Ruled-out) Chest pain (Resolved) #1 syncopal episode-probably vasovagal in nature, continue PT and OT, family would like patient to go to a halfway facility short-term, social media marketing analyst is working with the patient and her family #2 elevated creatinine-patient's creatinine was 1.29 today, I have stopped her IV fluids #3 coronary artery disease-believed to be stable at this time #4 ischemic cardiomyopathy-echocardiogram will be obtained #5 leukopenia-this appears to be chronic in nature and mild, etiology is unknown at this time #6 hypertension #7 cerebrovascular disease #8 chronic atrial fibrillation with paced rhythm Patient had a dobutamine stress echo performed today which was negative for ischemia Code Visit Inpatient E&M: 31845 Subs Hosp L2
[2018-06-15] MEDS: Carvedilol 12.5 MG Tablet PO (21:20)
[2018-06-15] MEDS: APIXABAN 5 MG TABLET PO (21:20)
[2018-06-15] MEDS: Ezetimibe 10 MG Tablet PO (21:21)
[2018-06-16] VITALS (12 sets, daily range): BP systolic 115–164; BP diastolic 61–79; PULSE 59–63; RESP 18; TEMP 36.3–36.6; O2SAT 92–97
[2018-06-16] MEDS: Levothyroxine 50 MCG Tablet PO (05:10)
[2018-06-16] MEDS: carBAMazepine 200 MG Tablet 100 MG PO ×3 (05:10→21:09)
[2018-06-16] MEDS: Escitalopram Oxalate 20 MG Tablet PO (07:51)
[2018-06-16] MEDS: Pantoprazole Sodium 40 MG Tablet PO (07:51)
[2018-06-16] MEDS: Iron Polysaccharide Complex 150 MG CAPSULE PO (07:51)
[2018-06-16] MEDS: Carvedilol 12.5 MG Tablet PO ×2 (07:51→21:10)
[2018-06-16] MEDS: Fenofibrate 145 MG Tablet PO (07:51)
[2018-06-16] MEDS: Furosemide 20 MG Tablet PO (07:52)
[2018-06-16] MEDS: APIXABAN 5 MG TABLET PO ×2 (07:52→21:09)
[2018-06-16] MEDS: Losartan Potassium 50 MG Tablet PO ×2 (07:53→21:09)
[2018-06-16] MEDS: Gabapentin 300 MG Capsule PO ×3 (07:57→16:24)
[2018-06-16] MEDS: Calcium Carbonate 500 MG Tablet PO ×2 (12:56→20:14)
--- NOTE | 2018-06-16 14:32 | CASEMGMT ---
CASH reviewed PT/OT. OT discontinued their services as she was doing well. PT she walked 150' with no assistive device and contact guard assist. CASH spoke with patient, her , and their daughter. CASH explained there is a good chance patient could get denied as she is doing really well. CASH told them CASH will send information to [facility] and they will start the pre-cert. CASH explained we will not hear today, but we will follow up on Tuesday. Plan: [facility] pending insurance approval. Chelita ESCALANTE MSW
--- NOTE | 2018-06-16 19:41 | PCM.PROGNOTE ---
Patient Problems: Active and Suspected Problems (Last Updated 06/14/18 @ 19:34 by Vincent Monet DO) Syncope (Acute) Subjective: Patient was seen and examined today, she is walking with minimal assistance in the schneider today, PT and OT are working with the patient, family would like to still proceed with having her go to a senior care facility if possible. - Physical Exam General: Alert, Oriented x3, Cooperative, No apparent distress, Well developed HEENT: Atraumatic, PERRLA, EOMI, Normocephalic Oral: Moist Mucosa Neck: Supple, No JVD, No Nuchal Rigidity, Trachea Midline, Thyroid Normal Size and Texture Lungs: Clear to auscultation, Normal air movement, No rhonchi, No wheeze, No rales Cardiovascular: Regular rate, Regular Rhythm, Normal S1, Normal S2, No murmurs, No Ectopic Activity, PMI Normal, No rub noted, No Gallop Abdomen: Bowel Sounds Present, Soft, Non Tender, Non-Distended, No hernias noted Extremities: No clubbing, No cyanosis, No edema, Capillary Refill Less than 3 Seconds Skin: No rashes, No breakdown Musculoskeletal: No Tenderness to Palpation of Joints or Extremities Neurological: Cranial nerves II-XII grossly intact, Neuro grossly intact, Sensory exam intact to light touch and pain Psych/Mental Status: Appropriate, Flat Affect Vital Signs Temp Pulse Resp BP Pulse Ox 97.8 F 60 18 115/61 93 06/16/18 13:40 06/16/18 19:00 06/16/18 13:40 06/16/18 13:40 06/16/18 13:40 Oxygen Flow Rate (L/min) 2 Oxygen Delivery Method Room Air Weight: 68.2 kg Body Mass Index (BMI) 25.0 Orthostatic Vital Signs Start: 06/14/18 16:30 Freq: q24h Status: Active Protocol: Activity Type Activity Date Activity User E-Sign Co-Sign Detail Recorded Client Recorded Date Recorded By Document 06/15/18 05:37 [facility] [id number] 06/15/18 05:39 BAM 06/15/18 05:37 Orthostatic Vitals Standing -Blood Pressure (90/60-120/80) 181/79 H -Extremity Use Left Arm -Pulse Rate (60-100) 62 Sitting -Blood Pressure (90/60-120/80) 182/81 H -Extremity Use Left Arm -Pulse Rate (60-100) 63 Lying -Blood Pressure (90/60-120/80) 171/82 H -Extremity Use Left Arm -Pulse Rate (60-100) 61 Intake and Output for Last 24 Hours 06/14/18 06/15/18 06/16/18 23:59 23:59 23:59 Intake Total 682 / 682 1384 / 1384 240 / 240 Balance 682 / 682 1384 / 1384 240 / 240 Medical Necessity - Tobacco Use Smoking Status: Former smoker Tobacco Use: Non-smoker Assessment/Plan All Active Problems (Last Updated 06/14/18 @ 19:34 by Vincent Monet DO) Syncope (Acute) Non-ischemic cardiomyopathy (Ruled-out) Chest pain (Resolved) #1 syncopal episode-probably vasovagal in nature, continue PT and OT, family would like patient to go to a senior care facility short-term, we will be awaiting insurance approval #2 elevated creatinine-patient's creatinine is probably at baseline now #3 coronary artery disease-believed to be stable at this time #4 ischemic cardiomyopathy-echocardiogram will be obtained #5 leukopenia-this appears to be chronic in nature and mild, etiology is unknown at this time #6 hypertension #7 cerebrovascular disease #8 chronic atrial fibrillation with paced rhythm Code Visit Inpatient E&M: 15166 Subs Hosp L2
[2018-06-16] MEDS: Ezetimibe 10 MG Tablet PO (21:09)
[2018-06-17] VITALS (9 sets, daily range): BP systolic 107–157; BP diastolic 52–64; PULSE 60–67; RESP 16–18; TEMP 36.4–36.7; O2SAT 93–97
[2018-06-17] MEDS: Levothyroxine 50 MCG Tablet PO (05:17)
[2018-06-17] MEDS: carBAMazepine 200 MG Tablet 100 MG PO ×3 (05:17→21:37)
[2018-06-17] MEDS: Iron Polysaccharide Complex 150 MG CAPSULE PO (08:41)
[2018-06-17] MEDS: Gabapentin 300 MG Capsule PO ×3 (08:41→17:01)
[2018-06-17] MEDS: Pantoprazole Sodium 40 MG Tablet PO (10:15)
[2018-06-17] MEDS: Carvedilol 12.5 MG Tablet PO ×2 (10:15→21:37)
[2018-06-17] MEDS: Losartan Potassium 50 MG Tablet PO ×2 (10:16→21:37)
[2018-06-17] MEDS: APIXABAN 5 MG TABLET PO ×2 (10:16→21:37)
[2018-06-17] MEDS: Escitalopram Oxalate 20 MG Tablet PO (10:16)
[2018-06-17] MEDS: Furosemide 20 MG Tablet PO (10:16)
[2018-06-17] MEDS: Fenofibrate 145 MG Tablet PO (10:17)
--- NOTE | 2018-06-17 16:28 | PCM.PROGNOTE ---
Patient Problems: Active and Suspected Problems (Last Updated 06/14/18 @ 19:34 by Vincent Monet DO) Syncope (Acute) Subjective: Patient was seen and examined today, she is resting in bed she voices no complaints. She has had no more episodes of syncope. We are currently awaiting her insurance carrier to approve senior living facility placement. - Physical Exam General: Alert, Oriented x3, Cooperative, No apparent distress, Well developed HEENT: Atraumatic, PERRLA, EOMI, Normocephalic Neck: Supple, No JVD, Negative Carotid Bruits Lungs: Clear to auscultation, Normal air movement, No rhonchi, No wheeze, No rales Cardiovascular: Regular rate - Paced rhythm, Regular Rhythm, Normal S1, Normal S2, No murmurs Abdomen: Bowel Sounds Present, Soft, Non Tender, Non-Distended Extremities: No clubbing, No cyanosis, No edema, Capillary Refill Less than 3 Seconds Skin: No rashes, No breakdown Musculoskeletal: No Tenderness to Palpation of Joints or Extremities Neurological: Cranial nerves II-XII grossly intact, Neuro grossly intact, Sensory exam intact to light touch and pain Psych/Mental Status: Appropriate, Flat Affect Vital Signs Temp Pulse Resp BP Pulse Ox 97.9 F 61 16 108/52 L 94 06/17/18 10:11 06/17/18 10:56 06/17/18 10:11 06/17/18 10:11 06/17/18 10:11 Oxygen Flow Rate (L/min) 2 Oxygen Delivery Method Room Air Weight: 68.2 kg Body Mass Index (BMI) 25.0 Orthostatic Vital Signs Start: 06/14/18 16:30 Freq: q24h Status: Active Protocol: Activity Type Activity Date Activity User E-Sign Co-Sign Detail Recorded Client Recorded Date Recorded By Document 06/15/18 05:37 BAM [id number] 06/15/18 05:39 BAM 06/15/18 05:37 Orthostatic Vitals Standing -Blood Pressure (90/60-120/80) 181/79 H -Extremity Use Left Arm -Pulse Rate (60-100) 62 Sitting -Blood Pressure (90/60-120/80) 182/81 H -Extremity Use Left Arm -Pulse Rate (60-100) 63 Lying -Blood Pressure (90/60-120/80) 171/82 H -Extremity Use Left Arm -Pulse Rate (60-100) 61 Intake and Output for Last 24 Hours 06/15/18 06/16/18 06/17/18 23:59 23:59 23:59 Intake Total 1384 / 1384 480 / 480 240 / 240 Balance 1384 / 1384 480 / 480 240 / 240 Medical Necessity - Tobacco Use Smoking Status: Former smoker Tobacco Use: Non-smoker Assessment/Plan All Active Problems (Last Updated 06/14/18 @ 19:34 by Vincent Monet DO) Syncope (Acute) Chest pain (Resolved) #1 syncopal episode-probably vasovagal in nature, continue PT and OT, family would like patient to go to a senior living facility short-term, we will be awaiting insurance approval, continue present care #2 elevated creatinine-patient's creatinine is probably at baseline now #3 coronary artery disease-believed to be stable at this time #4 Nonischemic cardiomyopathy-patient's ejection fraction has returned to normal at this time, echocardiogram showed a 60% EF #5 leukopenia-this appears to be chronic in nature and mild, etiology is unknown at this time #6 hypertension #7 cerebrovascular disease #8 chronic atrial fibrillation with paced rhythm Code Visit Inpatient E&M: 99941 Subs Hosp L2
--- NOTE | 2018-06-17 16:38 | PN_ITS ---
Patient Problems: Active and Suspected Problems (Last Updated 06/14/18 @ 19:34 by Vincent Monet DO) Syncope (Acute) Subjective: Patient was seen and examined today, she is resting in bed she voices no complaints. She has had no more episodes of syncope. We are currently awaiting her insurance carrier to approve custodial facility placement. - Physical Exam General: Alert, Oriented x3, Cooperative, No apparent distress, Well developed HEENT: Atraumatic, PERRLA, EOMI, Normocephalic Neck: Supple, No JVD, Negative Carotid Bruits Lungs: Clear to auscultation, Normal air movement, No rhonchi, No wheeze, No rales Cardiovascular: Regular rate - Paced rhythm, Regular Rhythm, Normal S1, Normal S2, No murmurs Abdomen: Bowel Sounds Present, Soft, Non Tender, Non-Distended Extremities: No clubbing, No cyanosis, No edema, Capillary Refill Less than 3 Seconds Skin: No rashes, No breakdown Musculoskeletal: No Tenderness to Palpation of Joints or Extremities Neurological: Cranial nerves II-XII grossly intact, Neuro grossly intact, Sensory exam intact to light touch and pain Psych/Mental Status: Appropriate, Flat Affect Vital Signs Temp Pulse Resp BP Pulse Ox 97.9 F 61 16 108/52 L 94 06/17/18 10:11 06/17/18 10:56 06/17/18 10:11 06/17/18 10:11 06/17/18 10:11 Oxygen Flow Rate (L/min) 2 Oxygen Delivery Method Room Air Weight: 68.2 kg Body Mass Index (BMI) 25.0 Orthostatic Vital Signs Start: 06/14/18 16:30 Freq: q24h Status: Active Protocol: Activity Type Activity Date Activity User E-Sign Co-Sign Detail Recorded Client Recorded Date Recorded By Document 06/15/18 05:37 BAM [id number] 06/15/18 05:39 BAM 06/15/18 05:37 Orthostatic Vitals Standing -Blood Pressure (90/60-120/80) 181/79 H -Extremity Use Left Arm -Pulse Rate (60-100) 62 Sitting -Blood Pressure (90/60-120/80) 182/81 H -Extremity Use Left Arm -Pulse Rate (60-100) 63 Lying -Blood Pressure (90/60-120/80) 171/82 H -Extremity Use Left Arm -Pulse Rate (60-100) 61 Intake and Output for Last 24 Hours 06/15/18 06/16/18 06/17/18 23:59 23:59 23:59 Intake Total 1384 / 1384 480 / 480 240 / 240 Balance 1384 / 1384 480 / 480 240 / 240 Medical Necessity - Tobacco Use Smoking Status: Former smoker Tobacco Use: Non-smoker Assessment/Plan All Active Problems (Last Updated 06/14/18 @ 19:34 by Vincent Monet DO) Syncope (Acute) Chest pain (Resolved) #1 syncopal episode-probably vasovagal in nature, continue PT and OT, family would like patient to go to a custodial facility short-term, we will be awaiting insurance approval, continue present care #2 elevated creatinine-patient's creatinine is probably at baseline now #3 coronary artery disease-believed to be stable at this time #4 Nonischemic cardiomyopathy-patient's ejection fraction has returned to normal at this time, echocardiogram showed a 60% EF #5 leukopenia-this appears to be chronic in nature and mild, etiology is unknown at this time #6 hypertension #7 cerebrovascular disease #8 chronic atrial fibrillation with paced rhythm Code Visit Inpatient E&M: 55143 Subs Hosp L2
[2018-06-17] MEDS: Ezetimibe 10 MG Tablet PO (21:38)
[2018-06-18] VITALS (10 sets, daily range): BP systolic 96–132; BP diastolic 48–66; PULSE 60–63; RESP 16; TEMP 36.7–37.1; O2SAT 93–97
[2018-06-18] MEDS: Levothyroxine 50 MCG Tablet PO (05:14)
[2018-06-18] MEDS: carBAMazepine 200 MG Tablet 100 MG PO ×3 (05:14→21:30)
[2018-06-18] MEDS: Iron Polysaccharide Complex 150 MG CAPSULE PO (08:20)
[2018-06-18] MEDS: Gabapentin 300 MG Capsule PO ×3 (08:20→16:33)
[2018-06-18] MEDS: Carvedilol 12.5 MG Tablet PO ×2 (09:32→21:30)
[2018-06-18] MEDS: APIXABAN 5 MG TABLET PO ×2 (09:32→21:30)
[2018-06-18] MEDS: Pantoprazole Sodium 40 MG Tablet PO (09:32)
[2018-06-18] MEDS: Furosemide 20 MG Tablet PO (09:32)
[2018-06-18] MEDS: Losartan Potassium 50 MG Tablet PO ×2 (09:32→21:30)
[2018-06-18] MEDS: Escitalopram Oxalate 20 MG Tablet PO (09:32)
[2018-06-18] MEDS: Fenofibrate 145 MG Tablet PO (09:33)
--- NOTE | 2018-06-18 18:59 | PN_ITS ---
Patient Problems: Active and Suspected Problems (Last Updated 06/17/18 @ 16:38 by Vincent Monet DO) Syncope (Acute) Subjective: Patient seen and examined today, there have been no more episodes of syncope since she has been in the hospital, patient has been ambulating without difficulty. - Physical Exam General: Alert, Oriented x3, Cooperative, No apparent distress, Well developed, Well nourished HEENT: Atraumatic, PERRLA, EOMI, Normocephalic Oral: Moist Mucosa Neck: Supple, No JVD, No Nuchal Rigidity, Trachea Midline, Thyroid Normal Size and Texture Lungs: Clear to auscultation, Normal air movement, No rhonchi, No wheeze Cardiovascular: Regular rate, Regular Rhythm, Normal S1, Normal S2, No murmurs, No Ectopic Activity, PMI Normal, No rub noted, No Gallop Abdomen: Bowel Sounds Present, Soft, Non Tender, Non-Distended, No hernias noted Extremities: No clubbing, No cyanosis, No edema, Capillary Refill Less than 3 Seconds Skin: No rashes, No breakdown Musculoskeletal: No Tenderness to Palpation of Joints or Extremities Neurological: Cranial nerves II-XII grossly intact, Neuro grossly intact Psych/Mental Status: Normal Affect, Appropriate, Alert and oriented to time, place, person, mood and affect Vital Signs Temp Pulse Resp BP Pulse Ox 98.3 F 61 16 132/66 H 94 06/18/18 15:25 06/18/18 15:30 06/18/18 15:25 06/18/18 15:25 06/18/18 15:25 Oxygen Flow Rate (L/min) 2 Oxygen Delivery Method Room Air Weight: 68.2 kg Body Mass Index (BMI) 25.0 Intake and Output for Last 24 Hours 06/16/18 06/17/18 06/18/18 23:59 23:59 23:59 Intake Total 480 / 480 640 / 640 820 / 820 Balance 480 / 480 640 / 640 820 / 820 Medical Necessity - Tobacco Use Smoking Status: Former smoker Tobacco Use: Non-smoker Assessment/Plan All Active Problems (Last Updated 06/17/18 @ 16:38 by Vincent Monet DO) Syncope (Acute) Chest pain (Resolved) #1 syncopal episode-probably vasovagal in nature, continue PT and OT, family would like patient to go to a nursing home facility short-term, we will be awaiting insurance approval, continue present care #2 elevated creatinine-probably secondary to hypertension with chronic kidney disease #3 coronary artery disease-believed to be stable at this time #4 Nonischemic cardiomyopathy-patient's ejection fraction has returned to normal at this time, echocardiogram showed a 60% EF #5 leukopenia-this appears to be chronic in nature and mild, etiology is unknown at this time #6 hypertension #7 cerebrovascular disease #8 chronic atrial fibrillation with paced rhythm Code Visit Inpatient E&M: 10938 Subs Hosp L2
[2018-06-18] MEDS: Ezetimibe 10 MG Tablet PO (21:30)
[2018-06-19] VITALS (8 sets, daily range): BP systolic 110–148; BP diastolic 51–57; PULSE 60–61; RESP 16–18; TEMP 36.6–37.1; O2SAT 94–97
[2018-06-19] MEDS: carBAMazepine 200 MG Tablet 100 MG PO ×2 (05:34→13:14)
[2018-06-19] MEDS: Levothyroxine 50 MCG Tablet PO (05:35)
--- NOTE | 2018-06-19 07:38 | PCM.PN.CARD ---
Subjectve: Patient seen and evaluated. Appears to be doing well. No further syncopal episodes. Objective: Vital Signs Temp Pulse Resp BP Pulse Ox 98.8 F 60 18 120/56 L 94 06/19/18 03:25 06/19/18 03:25 06/19/18 03:25 06/19/18 03:25 06/19/18 03:25 Oxygen Flow Rate (L/min) 2 Oxygen Delivery Method Room Air Weight: 150 lb 5.684 oz Body Mass Index (BMI) 25.0 Intake and Output for Last 24 Hours 06/17/18 06/18/18 06/19/18 23:59 23:59 23:59 Intake Total 640 / 640 1040 / 1040 50 / 50 Balance 640 / 640 1040 / 1040 50 / 50 General: Awake, Alert, Oriented x 3 HEENT: PERRL, EOMI, Sclera Non Icteric Neck: Supple, Good ROM, No Lymph Node Enlargement Lungs: Clear to auscultation Cardiovascular: Regular Rhythm, Normal S1, Normal S2, No Murmurs, No Rubs, No Gallops Vascular: No Carotid Bruits, Normal Femoral Pulses, Normal Radial Pulses, Normal Dorsalis Pedal Pulse, Normal Posterior Tibial Pulses Abdomen: Bowel Sounds Present, Soft, Non Tender, No HSM, No Organomegaly Extremities: No Cyanosis, No Clubbing, No edema Neurological: No Focal Motor or Sensory Deficit Rhythm: EKG: ECHO: Stress Test: Cardiac Cath: PCI: CT Surgery: Holter monitor: EPS: PPM: CXR: Chest CT Scan: Medical Necessity - Tobacco Use Smoking Status: Former smoker Tobacco Use: Non-smoker Assessment/Plan 1. Syncopal episode. Patient appears to be doing much better at this time with no further episodes of syncope. She appears to be adequately rehydrated. Her ejection fraction also appears to be normal. At this time I would not suggest that we make any further changes. She is apparently awaiting extended care facility placement.. 2.Hypertension Bp under good control will continue current medical therapy. Stable from my standpoint for outpatient therapy.
[2018-06-19] MEDS: Gabapentin 300 MG Capsule PO ×3 (08:50→17:56)
[2018-06-19] MEDS: Furosemide 20 MG Tablet PO (08:50)
[2018-06-19] MEDS: Losartan Potassium 50 MG Tablet PO (08:50)
[2018-06-19] MEDS: Fenofibrate 145 MG Tablet PO (08:50)
[2018-06-19] MEDS: Carvedilol 12.5 MG Tablet PO (08:50)
[2018-06-19] MEDS: Pantoprazole Sodium 40 MG Tablet PO (08:50)
[2018-06-19] MEDS: Escitalopram Oxalate 20 MG Tablet PO (08:50)
[2018-06-19] MEDS: APIXABAN 5 MG TABLET PO (08:51)
[2018-06-19] MEDS: Iron Polysaccharide Complex 150 MG CAPSULE PO (08:51)
--- NOTE | 2018-06-19 16:37 | CASEMGMT ---
Social Work Received phone call from Vidya at [facility] and pt has been denied SNF stay. CASH met with pt and explained this and presented options of appeal, [facility] private pay or home with home health. Pt understanding of why insurance denied and does not want to appeal. Pt unable to determine next step and request dgt Laura be call to assist with decision. Phone call to Laura and informed that insurance will not cover SNF stay. Options presented. Laura states pt can return home with home health. CASH informed that Dr. Navarro has stated pt can return home today. Laura is agreeable and will be in to picker operator pt. Laura prefers [facility]. NISHANT Soliz CM notified and to set up services. Dr. Navarro notified of families decision for d/c home instead of SNF. CASH met with pt and informed her of her daughter's decision. Pt is agreeable with d/c home today with [facility]. MILANA Lombardo
--- NOTE | 2018-06-19 16:39 | CASEMGMT ---
Pt was denied by insurance for SNF placement at this time. Per George CASTREJON, pt would like to go home with [facility]. Call to Natalie at [facility] and they will take pt for RN, PT at this time. Order placed in [employer] at this time. SStchris DILLARD CM
--- NOTE | 2018-06-19 17:43 | DCINST_ITS ---
- Discharge Diagnoses Current Active Problems: Current Active and Chronic Problems (Last Updated 06/17/18 @ 16:38 by Vincent Monet DO) Syncope (Acute) You will use the following diet at home:: No restrictions Your food should be the consistency of: Regular Your liquids should be the consistency of: Regular/Thin Discharge Activity: Return to Normal Activity Weight Bearing Status: Full weight bearing Allergies/Adverse Reactions: Allergies No Known Allergies Allergy (Verified 06/14/18 10:37) Medications to take at Discharge Fenofibrate [Lofibra] 160 mg PO DAILY 11/21/13 Levothyroxine [Synthroid] 50 mcg PO DAILY 11/21/13 Escitalopram Oxalate [Lexapro] 20 mg PO DAILY #30 tab 05/16/14 Apixaban [Eliquis] 5 mg PO BID 02/25/15 Iron Poly/Vit C [Niferex-150] 150 mg PO DAILYCM #30 cap 08/22/15 Pantoprazole Sodium [Protonix] 40 mg PO DAILY #30 tab 08/22/15 Ezetimibe [Zetia] 10 mg PO QHS 09/18/16 Potassium Chloride [Klor-Con M20] 20 meq PO DAILY 09/18/16 carbamazepine 100 mg chewable tablet 100 mg PO TID 04/22/18 carvedilol 12.5 mg tablet 12.5 mg PO BID 04/22/18 gabapentin 300 mg capsule 300 mg PO TID cap 04/22/18 Cholecalciferol (Vitamin D3) [Vitamin D3] 2,000 unit PO DAILY 06/14/18 Furosemide [Lasix] 20 mg PO DAILY tablet 06/19/18 Furosemide [Lasix] 20 mg PO DAILY #1 tablet 06/19/18 Losartan Potassium 50 mg PO BID #1 tab 06/19/18 Losartan Potassium [Cozaar] 50 mg PO BID tablet 06/19/18 The following prescriptions were given: Furosemide [Lasix] 20 mg PO DAILY #1 tablet Losartan Potassium 50 mg PO BID #1 tab Primary Care Physician: Paul Cho MD [Primary Care Provider] - Please follow up with your Primary Care Physician in: in 1-2 weeks Test Results: Test results from this visit will be discussed in further detail at your follow- up appointment, if applicable. Please Follow Up With: Rylan Kruse MD When: in 3 weeks
--- NOTE | 2018-06-20 10:47 | PCM.DC.SUM ---
Discharge Date and Diagnosis Date of Admission: 06/14/18 Date of Discharge: 06/19/18 - Primary Discharge Diagnosis #1 syncopal episode-probably vasovagal in nature #2 Acute kidney injury on a backdrop of chronic kidney disease secondary to hypertension #3 coronary artery disease #4 Nonischemic cardiomyopathy #5 leukopenia-this appears to be chronic in nature and mild, etiology is unknown at this time #6 hypertension #7 cerebrovascular disease #8 chronic atrial fibrillation with paced rhythm #9 pulmonary hypertension-mild - Secondary Discharge Diagnosis Chronic Problems (Last Updated 06/17/18 @ 16:38 by Vincent Monet DO) Chronic diastolic heart failure (Chronic) Non-ischemic cardiomyopathy (Chronic) SA node dysfunction (Chronic) Old non-ST elevation myocardial infarction (NSTEMI) (Chronic) CVA (cerebral vascular accident) (Chronic) Atherosclerosis of coronary artery of [place] heart without angina pectoris (Chronic) CABG x 1 BRITO-LAD 04/22/2014 H/O coronary artery bypass surgery (Chronic 04/22/14) CABG x 1 BRITO-LAD 04/22/2014 @ [facility] of cardiac pacemaker (Chronic 04/25/14) @ [facility] 04/25/14 RA Lead Revision 04/26/14 Chronic atrial fibrillation (Chronic) Hypertension (Chronic) Hyperlipidemia (Chronic) Hospital Course and Treatment Operations: None Procedures: - - Pacemaker interrogation, dobutamine stress echocardiogram, transthoracic echocardiogram, carotid duplex scan Summary of Care Provided: The patient is a 78 year old F who was seen in the emergency room at [facility] after experiencing a presyncopal episode at home when she was seated in a chair. Workup in the emergency room revealed her creatinine to be elevated, EKG showed a paced rhythm with underlying atrial fibrillation. Patient was admitted to PCU, echocardiogram was obtained which showed normal EF with pulmonary hypertension, she was seen in consultation by cardiology, underwent a stress echocardiogram which was negative for ischemia, she had a carotid duplex scan which did not show occlusive carotid disease, and she was seen by PT and OT. Patient's presyncopal episode was unexplained but felt to be probably secondary to vasovagal episode. Family wanted the patient to be placed temporarily in a [facility] facility for rehab, patient stayed in the hospital several days waiting for approval from her insurance company, and the end her insurance currently would not approve placement in a [facility] facility and family decided to take the patient home as they had nursing aides at home. Patient's medications were adjusted by cardiology prior to her discharge, on 06/19/18, patient was seen and examined felt to be in stable condition for discharge home Discharge Activity: Return to Normal Activity Weight Bearing Status: Full weight bearing Home Medications: Medications to take at Discharge Fenofibrate [Lofibra] 160 mg PO DAILY 11/21/13 Levothyroxine [Synthroid] 50 mcg PO DAILY 11/21/13 Escitalopram Oxalate [Lexapro] 20 mg PO DAILY #30 tab 05/16/14 Apixaban [Eliquis] 5 mg PO BID 02/25/15 Iron Poly/Vit C [Niferex-150] 150 mg PO DAILYCM #30 cap 08/22/15 Pantoprazole Sodium [Protonix] 40 mg PO DAILY #30 tab 08/22/15 Ezetimibe [Zetia] 10 mg PO QHS 09/18/16 Potassium Chloride [Klor-Con M20] 20 meq PO DAILY 09/18/16 carbamazepine 100 mg chewable tablet 100 mg PO TID 04/22/18 carvedilol 12.5 mg tablet 12.5 mg PO BID 04/22/18 gabapentin 300 mg capsule 300 mg PO TID cap 04/22/18 Cholecalciferol (Vitamin D3) [Vitamin D3] 2,000 unit PO DAILY 06/14/18 Furosemide [Lasix] 20 mg PO DAILY tablet 06/19/18 Furosemide [Lasix] 20 mg PO DAILY #1 tablet 06/19/18 Losartan Potassium 50 mg PO BID #1 tab 06/19/18 Losartan Potassium [Cozaar] 50 mg PO BID tablet 06/19/18 Following Prescrptions Were Given to Patient: Furosemide [Lasix] 20 mg PO DAILY #1 tablet Losartan Potassium 50 mg PO BID #1 tab Primary Care Physician: Paul Cho MD [Primary Care Provider] - Please follow up with your Primary Care Physician in: in 1-2 weeks Please Follow Up With: Rylan Kruse MD When: in 3 weeks Disposition: Home with Home Health Minutes spent on discharge:: 32 Patient Condition:: Stable Medical Necessity - Tobacco Use Smoking Status: Former smoker Tobacco Use: Non-smoker Meaningful Use Info Meaningful Use Diagnoses (Choose all that apply): None applicable Code Visit Inpatient E&M: 19140 Disch Hosp
--- NOTE | 2018-06-20 10:52 | DS.PCM_ITS ---
Discharge Date and Diagnosis Date of Admission: 06/14/18 Date of Discharge: 06/19/18 - Primary Discharge Diagnosis #1 syncopal episode-probably vasovagal in nature #2 Acute kidney injury on a backdrop of chronic kidney disease secondary to hypertension #3 coronary artery disease #4 Nonischemic cardiomyopathy #5 leukopenia-this appears to be chronic in nature and mild, etiology is unknown at this time #6 hypertension #7 cerebrovascular disease #8 chronic atrial fibrillation with paced rhythm #9 pulmonary hypertension-mild - Secondary Discharge Diagnosis Chronic Problems (Last Updated 06/17/18 @ 16:38 by Vincent Monet DO) Chronic diastolic heart failure (Chronic) Non-ischemic cardiomyopathy (Chronic) SA node dysfunction (Chronic) Old non-ST elevation myocardial infarction (NSTEMI) (Chronic) CVA (cerebral vascular accident) (Chronic) Atherosclerosis of coronary artery of [place] heart without angina pectoris ( Chronic) CABG x 1 BRITO-LAD 04/22/2014 H/O coronary artery bypass surgery (Chronic 04/22/14) CABG x 1 BRITO-LAD 04/22/2014 @ [facility] of cardiac pacemaker (Chronic 04/25/14) @ [facility] 04/25/14 RA Lead Revision 04/26/14 Chronic atrial fibrillation (Chronic) Hypertension (Chronic) Hyperlipidemia (Chronic) Hospital Course and Treatment Operations: None Procedures: - - Pacemaker interrogation, dobutamine stress echocardiogram, transthoracic echocardiogram, carotid duplex scan Summary of Care Provided: The patient is a 78 year old F who was seen in the emergency room at [facility] after experiencing a presyncopal episode at home when she was seated in a chair. Workup in the emergency room revealed her creatinine to be elevated, EKG showed a paced rhythm with underlying atrial fibrillation. Patient was admitted to PCU, echocardiogram was obtained which showed normal EF with pulmonary hypertension, she was seen in consultation by cardiology, underwent a stress echocardiogram which was negative for ischemia, she had a carotid duplex scan which did not show occlusive carotid disease, and she was seen by PT and OT. Patient's presyncopal episode was unexplained but felt to be probably secondary to vasovagal episode. Family wanted the patient to be placed temporarily in a senior living facility for rehab, patient stayed in the hospital several days waiting for approval from her insurance company, and the end her insurance currently would not approve placement in a senior living facility and family decided to take the patient home as they had nursing aides at home. Patient's medications were adjusted by cardiology prior to her discharge, on 06/19/18, patient was seen and examined felt to be in stable condition for discharge home Discharge Activity: Return to Normal Activity Weight Bearing Status: Full weight bearing Home Medications: Medications to take at Discharge Fenofibrate [Lofibra] 160 mg PO DAILY 11/21/13 Levothyroxine [Synthroid] 50 mcg PO DAILY 11/21/13 Escitalopram Oxalate [Lexapro] 20 mg PO DAILY #30 tab 05/16/14 Apixaban [Eliquis] 5 mg PO BID 02/25/15 Iron Poly/Vit C [Niferex-150] 150 mg PO DAILYCM #30 cap 08/22/15 Pantoprazole Sodium [Protonix] 40 mg PO DAILY #30 tab 08/22/15 Ezetimibe [Zetia] 10 mg PO QHS 09/18/16 Potassium Chloride [Klor-Con M20] 20 meq PO DAILY 09/18/16 carbamazepine 100 mg chewable tablet 100 mg PO TID 04/22/18 carvedilol 12.5 mg tablet 12.5 mg PO BID 04/22/18 gabapentin 300 mg capsule 300 mg PO TID cap 04/22/18 Cholecalciferol (Vitamin D3) [Vitamin D3] 2,000 unit PO DAILY 06/14/18 Furosemide [Lasix] 20 mg PO DAILY tablet 06/19/18 Furosemide [Lasix] 20 mg PO DAILY #1 tablet 06/19/18 Losartan Potassium 50 mg PO BID #1 tab 06/19/18 Losartan Potassium [Cozaar] 50 mg PO BID tablet 06/19/18 Following Prescrptions Were Given to Patient: Furosemide [Lasix] 20 mg PO DAILY #1 tablet Losartan Potassium 50 mg PO BID #1 tab Primary Care Physician: Paul Cho MD [Primary Care Provider] - Please follow up with your Primary Care Physician in: in 1-2 weeks Please Follow Up With: Rylan Kruse MD When: in 3 weeks Disposition: Home with Home Health Minutes spent on discharge:: 32 Patient Condition:: Stable Medical Necessity - Tobacco Use Smoking Status: Former smoker Tobacco Use: Non-smoker Meaningful Use Info Meaningful Use Diagnoses (Choose all that apply): None applicable Code Visit Inpatient E&M: 94928 Disch Hosp
--- NOTE | 2018-06-20 15:54 | CASEMGMT ---
RN CHIN Discharge F/U Phone Call LACE: 12 Strata: 4 Discharge date: 06/19/18 Call date: 06/20/18 Call time: [id number] Duration: 3 minutes Admission dx: Syncope Pt states has been doing 'fine' since discharge yesterday. Pt states [facility] is set up to come out to see pt tomorrow. Pt states no questions regarding medications or discharge instructions at this time. Pt states 'my daughter took care of setting up my appts.' Pt states no suggestions for [facility] at this time, states 'You have great nurses and aides and they were all super fantastic.' Pt voices no further questions/concerns/needs at this time. Pt aware that she can call this RN CM back with any concerns/needs, voices understanding. SStaten NISHANT NEELY
== END 2018-06-19 18:03 | disposition home or self-care (01) | DRG 312 ==
LOC: ED 11:39 → PCU 13:28
PROVIDERS: Internal Medicine Cardiovascular Disease; Admitting Provider Internal Medicine; Emergency Provider Emergency Medicine; Family Provider Family Medicine; PCP Family Medicine; Visit Provider Internal Medicine
DX: R55 Syncope and collapse (principal); I13.0 Hypertensive heart and chronic kidney disease with heart failure and stage 1 through stage 4 chronic kidney disease, or unspecified chronic kidney disease; I50.32 Chronic diastolic (congestive) heart failure; I25.10 Atherosclerotic heart disease of native coronary artery without angina pectoris; I25.5 Ischemic cardiomyopathy; D72.819 Decreased white blood cell count, unspecified; I67.9 Cerebrovascular disease, unspecified; I48.2 Chronic atrial fibrillation; I27.20 Pulmonary hypertension, unspecified; I25.2 Old myocardial infarction; E78.5 Hyperlipidemia, unspecified; Z95.0 Presence of cardiac pacemaker; Z86.73 Personal history of transient ischemic attack (TIA), and cerebral infarction without residual deficits; Z87.891 Personal history of nicotine dependence; Z95.1 Presence of aortocoronary bypass graft; Z79.02 Long term (current) use of antithrombotics/antiplatelets; Z79.899 Other long term (current) drug therapy; N18.3 Chronic kidney disease, stage 3 (moderate)
CPT/HCPCS: 36415; 71045; 80048; 84484; 85025; 85027; 85610; 85730; 93005; 93017; 93306; 93350; 93880; 97112; 97116; 97162; 97165; 97530; 99285; J7030; A4216

== ENCOUNTER 2018-07-26 19:00 | Emergency (ER) | payer MEDICARE, SELFPAY ==
[2018-07-26 19:06] VITALS: BP 115/59; PULSE 75; RESP 16; TEMP 36.4; O2SAT 94; BMI 23.3
--- NOTE | 2018-07-26 20:30 | ED.VISSUMM ---
- ER Visit Summary Date of Service: 07/26/18 Chief Complaint: Left wrist injury History of Present Illness: The patient is a 78 F who fell at 2 AM this morning injuring her left wrist. She presents at 8:30 PM for evaluation. She has bruising and swelling noted to the left wrist. She denies striking her head or loss of consciousness. She is currently on Eliquis. Physical Examination: Vital signs are unremarkable. Patient sitting upright in bed no acute distress. Head neck examination reveals no obvious external sign of trauma. Heart is regular rate and rhythm. Lung sounds are clear. Left upper extremity examination reveals edema and ecchymosis around the left wrist. She has palpable radial pulse. She has no tenderness of the metacarpals. There is no pain with axial load on her thumb. Lower extremity examination on the left reveals small ecchymosis to the lateral left thigh without bony tenderness. Test Results: Left wrist x-rays were obtained per nursing protocol. There is no fracture of the radius or ulna. There is a questionable defect in the navicular bone versus overlap density noted on the oblique view. Emergency Department Course and Treatment: At this time patient has no pain with axial load on her thumb. My suspicion for a navicular fracture is low. She was placed in a Velcro thumb spica splint and if she continues to have pain in 1 week she has had repeat x-rays performed. She will take Tylenol for pain. Treatment Plan: [] Disposition: Discharge Impression: Left wrist sprain This note was generated with [employer] dictation software. It may contain incorrect words, spelling, and punctuation that were not noted in review of the chart prior to signing ED Disposition - Plan for ED Patient: Chief Complaint: Upper Extremity Injury Referrals: Paul Cho MD [Primary Care Provider] -
--- NOTE | 2018-07-26 20:32 | ED.DEP ---
ED Disposition - Plan for ED Patient: Disposition: Home or Assisted Living Chief Complaint: Upper Extremity Injury Instructions: ED Sprain Wrist Referrals: Paul Cho MD [Primary Care Provider] - 1 Week
== END 2018-07-26 20:46 | disposition home or self-care (01) ==
PROVIDERS: Emergency Provider Emergency Medicine; Family Provider Family Medicine; PCP Family Medicine
DX: S63.502A Unspecified sprain of left wrist, initial encounter (principal); I25.10 Atherosclerotic heart disease of native coronary artery without angina pectoris; I25.2 Old myocardial infarction; I11.0 Hypertensive heart disease with heart failure; I50.9 Heart failure, unspecified; E78.00 Pure hypercholesterolemia, unspecified; I25.5 Ischemic cardiomyopathy; I48.91 Unspecified atrial fibrillation; Z86.73 Personal history of transient ischemic attack (TIA), and cerebral infarction without residual deficits; Z87.891 Personal history of nicotine dependence; Z79.02 Long term (current) use of antithrombotics/antiplatelets; Z79.899 Other long term (current) drug therapy; W19.XXXA Unspecified fall, initial encounter; Y93.89 Activity, other specified; Y92.89 Other specified places as the place of occurrence of the external cause; Y99.8 Other external cause status
CPT/HCPCS: 73110; 99283

== ENCOUNTER → 2018-08-01 11:39 | Outpatient (CLI) | payer MEDICARE, SELFPAY ==
--- NOTE | 2018-08-01 11:43 | RAD_ITS ---
STUDY: X-RAY - LEFT SHOULDER REASON FOR EXAM: Female, 78 years old. Trauma TECHNIQUE: 4 view(s) of the shoulder. COMPARISON: Prior study of 12/06/2014 FINDINGS: There is a linear lucency of the glenoid labrum raising the suspicion of fracture. Normal acromioclavicular joint. Normal acromion. Normal humeral head and visualized proximal humerus. The soft tissue structures are unremarkable. There is a calcified granuloma of the left upper lobe apex. RAD/Shoulder min 2 Views IMPRESSION: Linear lucency of the glenoid labrum raising the suspicion of fracture. CT of the left shoulder joint is recommended for further evaluation. Electronically Signed: Joahn Davis MD at 17:11 EDT , Service support ,
--- NOTE | 2018-08-01 11:43 | RAD_ITS ---
STUDY: X-RAY - LEFT WRIST REASON FOR EXAM: Female, 78 years old. Trauma TECHNIQUE: 3 view(s) of the wrist were obtained. COMPARISON: Previous study of 07/26/2018 FINDINGS: Normal visualized distal radius and ulna. Normal radiocarpal articulation. Normal distal radioulnar articulation. Normal carpal bones. Normal carpal articulations. There are mild arthritic changes of the first metacarpal greater multangular joint. Normal second through fifth carpometacarpal articulations. Normal visualized metacarpal bones. There is soft tissue swelling of the lateral aspect of the distal forearm. RAD/Wrist min 3 Views IMPRESSION: Degenerative changes of the first metacarpal greater multangular joint. Soft tissue swelling of the lateral aspect of the distal forearm. There is no evidence of fracture or dislocation. Electronically Signed: Johan Davis MD at 17:00 EDT , Service support ,
== END ==
PROVIDERS: Family Provider Family Medicine; PCP Family Medicine; Visit Provider Family Medicine
DX: S49.92XA Unspecified injury of left shoulder and upper arm, initial encounter (principal); S60.212A Contusion of left wrist, initial encounter
CPT/HCPCS: 73030; 73110

== ENCOUNTER → 2018-08-02 10:44 | Outpatient (CLI) | payer MEDICARE, SELFPAY ==
--- NOTE | 2018-08-02 10:55 | CT_ITS ---
STUDY: CT LEFT SHOULDER REASON FOR EXAM: Left shoulder pain after a fall 07/26/2018. TECHNIQUE: The patient was scanned in a multi detector CT scanner. High resolution transaxial imaging was performed without the administration of intravenous contrast material. Sagittal and coronal images were reconstructed. Individualized dose optimization techniques were used for this CT. COMPARISON: Radiographs 08/01/2018. FINDINGS: Normal glenohumeral articulation. Normal glenoid rim, neck and visualized scapula. Normal humeral head, neck and tuberosities. Normal coracoid process. Normal visualized lateral clavicle. There is acromioclavicular arthrosis (coronal image 36). There is a Type II morphology (curved), with a neutral orientation. There is a calcified granuloma in the left lung (axial images 38-41). CT/Extremity Upper without Contra IMPRESSION: Acromioclavicular arthrosis. No demonstrated glenoid fracture. Electronically Signed: Nahun Altamirano MD at 11:37 EDT Tel , Service support ,
== END ==
PROVIDERS: Family Provider Family Medicine; PCP Family Medicine; Visit Provider Family Medicine
DX: M67.912 Unspecified disorder of synovium and tendon, left shoulder (principal)
CPT/HCPCS: 73200

== ENCOUNTER 2018-08-08 14:50 | Outpatient (RCR) | payer MEDICARE, SELFPAY ==
--- NOTE | 2018-08-08 15:56 | HP.PTEVAL_ITS ---
Patient's Visit Information DENIS LANCE is a 78 year old F referred to Physical Therapy by Paul Cho with a diagnosis of L SHOULDER CONTUSION/RC STRAIN. Date of Evaluation: 08/08/18 Physical Therapist: Tete Spicer - Visit Plan Frequency: 1x/Week Duration: 2 Months Plan: 1X/ week for 10 weeks for L shoulder PROM, AAROM, AROM, L shoulder MMT, L wrist AROM and strength with HEP and ICE/HEat only. ++++Pt has a pacemaker++++ - Subjective Subjective: Pt reports that she fell off a stool onto her L side on July and she really messed up her arm (really swollen and black and blue). Pt reports that the Dr reports that his shoulder is healing nicly but does not want the pt to have a stiff shoulder and so she is here. She wants to be able o have full use of her L arm again. Pt is R handed. She has a brace on her L arm and she went to [facility] to get the brace. She did have a brace on her L wrist and her L wrist is now doing better and she is not wearing the brace. She is sleeping at night in bed. She has pain when she tries to move her arm (3 /10). She is able to lay on that shoulder. She was not told how long to wear the brace. - Pain L shoulder pain Pain Intensity (Out of 10): 3 Comment: with movement - Objective L shoulder AROM: flex 105 degrees, abd 99 degrees, IR T12, ER 44 degrees. R shoulder AROM: flex 144 degrees, abd 140 degrees, IR T6, ER 45 degrees. L shld mmt NT due to brusing. R shld MMT: flex, abd, ER and IR all 4/5. L wrist : huge wrist bruise and contusion on radial side of wrist.. tender to touch. Onservation: L wrist heavily bruised and forearm (Issued a compression sleeve for the L wrist contusion and pt advised to take the sleeve off if any tingling etc) - Goals Goal 1:: I HEP Goal Time Frame: 8-12 Weeks Goal 2:: Increase L shoulder AROM to equal that of the R (at time of eval: Rshoulder AROM: flex 144 degrees, abd 140 degrees, IR T6, ER 45 degrees) Goal Time Frame: 8-12 Weeks Goal 3:: Increase L shoulder Strength to 4/5 all 4 planes Goal Time Frame: 8-12 Weeks Goal 4:: Return to full functional use of L UE Goal Time Frame: 8-12 Weeks - Rehabilitation Potential Rehabilitation Potential: Good - Anticipated Interventions Patient/Client Instruction: Educate patient on: Condition, Plan of Care For the Purpose of:: To decrease pain, To decrease swelling/inflammation, To increase ROM, To improve nutrient delivery to tissue, To improve muscle performance and motor function, To improve ability to perform ADL's, To increase tolerance to activity/condition/position, To improve performance and independence with ADL's, To decrease level of supervision to perform tasks, To improve ability of physical actions for home/community/work/leisure, To improve health of tissue, To decrease soft tissue restriction, To increase flexibility/ ROM Therapeutic Exercise to Include: Strength training, Postural training, Flexibilty training, Passive ROM, Active ROM, Scapular Strength/Stabilization For the Purpose of:: To decrease pain, To decrease swelling/inflammation, To increase ROM, To improve nutrient delivery to tissue, To improve muscle performance and motor function, To improve ability to perform ADL's, To increase tolerance to activity/condition/position, To improve performance and independence with ADL's, To decrease level of supervision to perform tasks, To improve ability of physical actions for home/community/work/leisure, To decrease soft tissue restriction, To increase flexibility/ROM Cryotherapy (ice pack, ice massage): Yes For the Purpose of:: To decrease pain, To decrease swelling/inflammation Thank you for the opportunity to evaluate your patient. For Medicare and Medicare HMO plans, please review the plan of care and approve it. It will need to be FAXED BACK to us at [phone] for Medicare purposes. Please let me know if there are questions or concerns regarding this plan of care. Physician Signature: Date:
--- NOTE | 2018-09-15 12:56 | HP.PT.NRP ---
HP - Discharge Summary (1) - Patient Information DENIS LANCE was seen in my office for initial evaluation on 08/08/18. The following Plan of Care was established for this patient: Initial Frequency: 1x/Week Initial Duration: 2 Months - Anticipated Interventions Patient/Client Instruction: Educate patient on: Condition, Plan of Care For the Purpose of:: To decrease pain, To decrease swelling/inflammation, To increase ROM, To improve nutrient delivery to tissue, To improve muscle performance and motor function, To improve ability to perform ADL's, To increase tolerance to activity/condition/position, To improve performance and independence with ADL's, To decrease level of supervision to perform tasks, To improve ability of physical actions for home/community/work/leisure, To improve health of tissue, To decrease soft tissue restriction, To increase flexibility/ROM Therapeutic Exercise to Include: Strength training, Postural training, Flexibilty training, Passive ROM, Active ROM, Scapular Strength/Stabilization For the Purpose of:: To decrease pain, To decrease swelling/inflammation, To increase ROM, To improve nutrient delivery to tissue, To improve muscle performance and motor function, To improve ability to perform ADL's, To increase tolerance to activity/condition/position, To improve performance and independence with ADL's, To decrease level of supervision to perform tasks, To improve ability of physical actions for home/community/work/leisure, To decrease soft tissue restriction, To increase flexibility/ROM Cryotherapy (ice pack, ice massage): Yes For the Purpose of:: To decrease pain, To decrease swelling/inflammation This patient was last seen in our office 08/08/18. Pertinent comments regarding their Physical therapy will appear below: [facility] as pt did not follow up after her evaluation. At this point I will be discontinuing this patient from physical therapy. I would be happy to see this patient again in the future if found appropriate by the physician. Thank you! Tete Spicer
== END 2018-08-08 19:00 | disposition home or self-care (01) ==
LOC: PT 14:50
PROVIDERS: Family Provider Family Medicine; PCP Family Medicine; Visit Provider Family Medicine
DX: S40.012D Contusion of left shoulder, subsequent encounter (principal); S46.012D Strain of muscle(s) and tendon(s) of the rotator cuff of left shoulder, subsequent encounter
CPT/HCPCS: 97161

== ENCOUNTER 2018-11-12 13:15 | Emergency (ER) | payer MEDICARE, SELFPAY ==
[2018-11-12 13:18] VITALS: BP 115/70; PULSE 66; RESP 19; TEMP 36.6; O2SAT 98; BMI 26.4
[2018-11-12 13:29] VITALS: O2SAT 97
--- NOTE | 2018-11-12 13:35 | CT_ITS ---
STUDY: CT BRAIN WITHOUT CONTRAST REASON FOR EXAM: Female, 78 years old. Fall on blood thinners RADIATION DOSAGE (If Supplied By Facility): CTDIvol = ( 44.99 ) mGy, DLP = ( 762.36 ) mGycm TECHNIQUE: Transaxial CT imaging of the brain was performed without administration of intravenous contrast material. Individualized dose optimization techniques were used for this CT. COMPARISON: 09/22/17 FINDINGS: Normal soft tissue structures. Normal calvarium. There is calcification of the cavernous carotid arteries. There is mild cerebral atrophy with widening of the extra-axial spaces and ventricular dilatation. There are areas of decreased attenuation within the white matter tracts of the supratentorial brain, consistent with microvascular disease changes. There is low attenuation within the right external capsule extending to the right-sided periventricular white matter compatible with old infarct. Normal brainstem. There is mild cerebellar atrophy. There is no intracranial hemorrhage. There are no findings of an acute ischemic infarction. Normal visualized paranasal sinuses. CT/Brain/Head without Contrast IMPRESSION: Stable head CT no evidence of acute hemorrhage infarct or edema. Prior right periventricular temporal lobe ischemic change. Electronically Signed: Jael Islas MD at 15:11 EST Tel , Service support ,
--- NOTE | 2018-11-12 13:41 | RAD_ITS ---
STUDY: X-RAY CHEST REASON FOR EXAM: Female, 78 years old. Chest pain TECHNIQUE: Single AP portable view of the chest. COMPARISON: 06/14/2018 FINDINGS: There is hyperinflation of the lungs consistent with chronic obstructive lung disease (COPD). Blunting of the left costophrenic angle is noted, could represent chronic process versus small effusion. Sternal cerclage wires are present from a prior sternotomy. Mild cardiomegaly. Stable left chest wall pacing device. Normal mediastinum and oc. Normal visualized pulmonary arteries. There is atherosclerotic calcification of the aortic arch with tortuosity. Normal visualized thoracic spine. Normal visualized ribs, clavicles, and shoulders. There is no demonstrated abnormality of the visualized soft tissue structures of the upper abdomen. RAD/Chest 1 View (Portable) IMPRESSION: COPD with stable blunting of the left costophrenic angle. Could represent effusion versus chronic process. Lungs are otherwise clear. Electronically Signed: Valentino Becerra DO at 13:58 EST Tel , Service support ,
[2018-11-12 13:48] LABS: Absolute Lymphocyte Count 0.79 X10^3/ul (0.83-4.51); Absolute Neutrophil Count 5.3 X10^3/uL (2.0-7.7); Basophil# 0.04 X10^3/uL; Basophil% 0.6 % (0-1); Eosinophil# 0.06 X10^3/uL; Eosinophils% 0.9 % (0-5); Hemoglobin 11.4 g/dl (12.0-15.0); Lymphocyte # 0.79 X10^3/ul (4.0); Lymphocyte % 11.7 % (19-41); Mean Corp Hgb Conc 34.5 g/gl (32-36); Mean Corpuscular Hgb 31.8 pg (27.0-32.0); Mean Corpuscular Volume 92.2 fL (81-99); Mean Platelet Vol. 9.7 fl (6.2-12.0); Monocyte# 0.59 X10^3/uL; Monocyte% 8.7 % (0-10); Neutrophil # 5.27 X10^3/uL (2.7-7.7); POSITIVE COUNT NO; POSITIVE DIFFERENTIAL NO; POSITIVE MORPHOLOGY NO; Platelet Count 283 K/mm3 (150-450); RBC Distribution Width CV 12.2 % (11.6-14.6); RBC Distribution Width SD 39.8 fl (35.1-43.9); Red Blood Count 3.58 M/mm3 (4.2-5.4); White Blood Count 6.8 K/mm3 (4.4-11.0)
--- NOTE | 2018-11-12 13:55 | ED.DCSUM_ITS ---
- ER Visit Summary Date of Service: 11/12/18 Chief Complaint: [] Hit head while walking through a doorway, fatigue History of Present Illness: The patient is a 78 F [] history of CABG dual- chamber pacemaker Eliquis therapy has been in her usual state of health today woke feeling fine per her and her , then she was walking through the doorway when she inadvertently struck her head against the edge of the doorway, she has pain to the back of her head from this incident, she had no LOC no nausea or vomiting no neck pain no numbness weakness paresthesias, however she has persistence of the headache, she was trying to prepare a 7 layer salad she got through part of the process began to be tired and just sat down the was concerned that she was sweating or something was bothering her he called the paramedics they arrived her vital signs are unremarkable there is nothing specific and she was brought to the emergency department because of the above Patient's only complaint at this time is some pain over the occipital part of the head more to the left related to when she struck her head she has no other complaints Physical Examination: [] 115/70, afebrile General, no distress resting comfortably HEENT is generally unremarkable The neck is supple no adenopathy Cardiovascular, regular rate and rhythm Lungs, clear bilateral Abdomen, soft nontender Extremities, no clubbing cyanosis , edema, 4+ that is chronic Neurologic, awake alert answering questions appropriately moving all 4 extremities Test Results: [] Emergency Department Course and Treatment: [] EKG shows a dual-chamber pacemaker nothing acute her vital signs are within normal range she assures me normality her general medical exam is unremarkable at concurs that she has been doing well at her baseline at home all the above is head CT screening labs Treatment Plan: [] Patient's labs UA head CT EKG are all generally unremarkable see those reports on reevaluation she is resting company the better vital signs remained stable she is at her neurologic and general health status baseline per the patient her we discussed all the above she states she feels fine she wants to go home she has walking devices she can use she really has no complaints now of the head injury or any headache and she will follow with her doctors and return for change in symptoms Disposition: [] Home stable Impression: [] Head trauma, CABG cardiac pacemaker Eliquis therapy This note was generated with Dragon dictation software. It may contain incorrect words, spelling, and punctuation that were not noted in review of the chart prior to signing ED Disposition - Plan for ED Patient: Chief Complaint: Weakness Referrals: Paul Cho MD [Primary Care Provider] -
[2018-11-12 14:01] LABS: Anion Gap 9 (5-15); BUN 20 mg/dL (7-18); BUN/Creat Ratio 18.2 RATIO (10-20); Calcium,Total 8.6 mg/dL (8.5-10.1); Chloride 93 mmol/L (98-107); EST Glomerular Filtration Rate 51 mL/min (>60); Est Glom Filt Rate - Afr Amer 62 mL/min (>60); Estimated Creatinine Clearance 37.32 ml/min; Glucose 99 mg/dL (74-106); Potassium 4.4 mmol/L (3.5-5.1); Sodium Level 127 mmol/L (136-145)
[2018-11-12 14:04] LABS: Bacteria 0 SEEN /hpf (None Seen); Color, Urine Yellow (Yellow); Glucose, Dipstick Normal (Normal); Ketone-Dipstick Negative (Negative); Leukocyte Esterase-Dipstick Negative /ul (Negative); Mucous, Urine 0 SEEN /hpf (<or=2+); Nitrite-Dipstick Negative (Negative); Occult Blood-Urine Negative /ul (Negative); Protein-Dipstick Negative (Negative); Red Blood Cells-Urine 0 SEEN /hpf (0-5); Urine Bilirubin Dipstick Negative (Negative); Urine Clarity Sl. Cloudy (Clear); Urine Urobilinogen Normal (Normal); White Blood Cells 0 SEEN /hpf (0-5)
[2018-11-12 14:11] LABS: Squamous Epithelial Cells - UA 0-5 SEEN /hpf (5-10)
[2018-11-12 14:19] VITALS: BP 128/65; PULSE 66; RESP 14; O2SAT 97
[2018-11-12 14:19] LABS: BNP,B-Type NATRIURETIC PEPTIDE 291.6 pg/mL (0-100)
--- NOTE | 2018-11-12 15:01 | ED.DEP ---
ED Disposition - Plan for ED Patient: Chief Complaint: Weakness Instructions: ED Weakness [facility], ED Head Injury Closed Referrals: Paul Cho MD [Primary Care Provider] -
[2018-11-12 15:08] VITALS: BP 145/67; PULSE 84; RESP 18; O2SAT 97
[2018-11-12 15:27] VITALS: BP 159/79; PULSE 64; RESP 16; TEMP 36.3; O2SAT 98
== END 2018-11-12 15:43 | disposition home or self-care (01) ==
LOC: ED 14:04
PROVIDERS: Emergency Provider Emergency Medicine; Family Provider Family Medicine; PCP Family Medicine
DX: S09.90XA Unspecified injury of head, initial encounter (principal); R53.83 Other fatigue; I10 Essential (primary) hypertension; Z95.1 Presence of aortocoronary bypass graft; Z95.0 Presence of cardiac pacemaker; Z79.02 Long term (current) use of antithrombotics/antiplatelets; Z79.899 Other long term (current) drug therapy; W22.09XA Striking against other stationary object, initial encounter; Y93.01 Activity, walking, marching and hiking; Y92.009 Unspecified place in unspecified non-institutional (private) residence as the place of occurrence of the external cause; Y99.8 Other external cause status
CPT/HCPCS: 70450; 71045; 80048; 81001; 83880; 84484; 85025; 93005; 99285

== ENCOUNTER 2018-12-14 21:22 | Emergency (ER) | payer MEDICARE, SELFPAY ==
[2018-12-14 21:26] VITALS: BP 161/74; PULSE 63; RESP 14; TEMP 36.1; O2SAT 95; BMI 25.2
--- NOTE | 2018-12-14 21:37 | RAD_ITS ---
STUDY: X-RAY - LEFT KNEE REASON FOR EXAM: Female, 78 years old. Fall. Knee pain. TECHNIQUE: 3 view(s) of the knee. COMPARISON: None. FINDINGS: Normal visualized distal femur. Normal visualized proximal tibia and fibula. Normal proximal tibiofibular articulation. Normal medial femorotibial compartment. Normal lateral femorotibial compartment. Normal patellofemoral articulation. There are atherosclerotic calcifications. RAD/Knee 3 Views IMPRESSION: No acute osseous injury. Electronically Signed: Estela Frances MD at 22:17 EST Tel , Service support ,
--- NOTE | 2018-12-14 21:37 | CT_ITS ---
STUDY: CT BRAIN WITHOUT CONTRAST REASON FOR EXAM: Female, 78 years old. Fall. RADIATION DOSAGE (If Supplied By Facility): CTDIvol = ( 44.99 ) mGy, DLP = ( 745.49 ) mGycm TECHNIQUE: Transaxial CT imaging of the brain was performed without administration of intravenous contrast material. Individualized dose optimization techniques were used for this CT. COMPARISON: November 12, 2018 FINDINGS: Normal soft tissue structures. Normal calvarium. There is mild cerebral atrophy with widening of the extra-axial spaces and ventricular dilatation. There is a stable region of encephalomalacia within the right temporal lobe and external lobe consistent with a prior infarct. Normal basal ganglia and thalami. Normal brainstem. Normal cerebellum. There is no intracranial hemorrhage. There are no findings of an acute ischemic infarction. Normal visualized paranasal sinuses. CT/Brain/Head without Contrast IMPRESSION: Chronic involutional changes of the brain. 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 Electronically Signed: Estela Frances MD at 22:12 EST Tel , Service support ,
--- NOTE | 2018-12-14 22:00 | RAD_ITS ---
STUDY: X-RAY - LEFT ELBOW REASON FOR EXAM: Female, 78 years old. Fall. TECHNIQUE: 3 view(s) of the elbow. COMPARISON: None. FINDINGS: Normal visualized humerus, radius and ulna. Normal radiocapitellar and ulnotrochlear articulations. The soft tissue structures are unremarkable. RAD/Elbow min 3 Views IMPRESSION: No acute osseous injury. Electronically Signed: Estela Frances MD at 22:18 EST Tel , Service support ,
[2018-12-14 22:13] VITALS: O2SAT 94
--- NOTE | 2018-12-14 22:13 | ED.DCSUM_ITS ---
- ER Visit Summary Date of Service: 12/14/18 Chief Complaint: Fall, head injury History of Present Illness: The patient is a 78 F who presents after a fall. Patient tripped today and had a mechanical fall. She hit her head, left arm and left leg. She denies any LOC. She can elicit pain on the left side of the head as well as in the left elbow region. She also has some mild left knee pain. She is on Eliquis. Physical Examination: Vital signs are reviewed. HEENT exam reveals left temporal tenderness to palpation. There is also an abrasion located in this area. Pupils are equally round and reactive. Her extraocular motions are intact. Her neck is nontender. Heart is regular rate and rhythm without murmurs. Lungs are clear bilaterally. Abdomen is soft and nontender. Extremities reveal tenderness over the left elbow. She has full range of motion with pain at this joint. She also has an abrasion of the left knee is without any significant pain. Her GCS is 15. Neurologic exam is normal. Test Results: CAT scan of the head reveals chronic changes. X-rays of the left elbow and left knee reveal nothing acute Emergency Department Course and Treatment: Patient will have her wounds cleansed. Imaging studies are all negative. Patient will use ice on any areas that are sore. She will take Tylenol for pain. She will follow-up with her PCP. Treatment Plan: [] Disposition: Discharge Impression: Closed head injury, left knee contusion, left elbow contusion, multiple abrasions This note was generated with [employer] dictation software. It may contain incorrect words, spelling, and punctuation that were not noted in review of the chart prior to signing ED Disposition - Plan for ED Patient: Chief Complaint: Fall Referrals: Paul Cho MD [Primary Care Provider] -
[2018-12-14 22:26] VITALS: BP 173/84; PULSE 60; RESP 16; O2SAT 95
--- NOTE | 2018-12-14 22:31 | ED.DEP ---
ED Disposition - Plan for ED Patient: Disposition: Home or Assisted Living Chief Complaint: Fall Instructions: ED Mechanical Fall Referrals: Paul Cho MD [Primary Care Provider] -
[2018-12-14 23:10] VITALS: BP 162/70; PULSE 61; RESP 16; O2SAT 93
== END 2018-12-14 23:11 | disposition home or self-care (01) ==
PROVIDERS: Emergency Provider Emergency Medicine; Family Provider Family Medicine; PCP Family Medicine
DX: S80.02XA Contusion of left knee, initial encounter (principal); S50.02XA Contusion of left elbow, initial encounter; S09.90XA Unspecified injury of head, initial encounter; T14.8XXA Other injury of unspecified body region, initial encounter; Z86.73 Personal history of transient ischemic attack (TIA), and cerebral infarction without residual deficits; W01.0XXA Fall on same level from slipping, tripping and stumbling without subsequent striking against object, initial encounter; Y93.89 Activity, other specified; Y92.89 Other specified places as the place of occurrence of the external cause; Y99.8 Other external cause status
CPT/HCPCS: 70450; 73080; 73562; 99282

== ENCOUNTER 2018-12-18 15:54 | Observation (INO) | payer MEDICARE, SELFPAY ==
[2018-12-18 15:55] VITALS: BP 151/82; PULSE 79; RESP 16; TEMP 36.7; O2SAT 94; BMI 24.7
--- NOTE | 2018-12-18 16:18 | CT_ITS ---
STUDY: CT CERVICAL SPINE WITHOUT CONTRAST REASON FOR EXAM: Female, 78 years old. 2 falls and 5 days on blood thinners. RADIATION DOSAGE (If Supplied By Facility): CTDIvol = ( 17.73 ) mGy, DLP = ( 326.43 ) mGycm TECHNIQUE: High resolution transaxial imaging was performed without contrast material. Sagittal and coronal images were reconstructed. Individualized dose optimization techniques were used for this CT. COMPARISON: 09/22/2017. FINDINGS: Normal craniovertebral junction. Normal anterior atlantoaxial articulation. Normal odontoid process. There is straightening of the normal cervical lordosis. Normal vertebral bodies and posterior osseous elements. C2-3: Normal endplates. Normal disc height and morphology. Normal central canal. There is moderate left facet arthrosis. C3-4: Normal endplates. Normal disc height and morphology. Normal central canal. There is moderate left facet arthrosis. C4-5: Normal endplates. Moderate disc space narrowing. Normal central canal. There is mild bilateral foraminal encroachment due to uncinate and left facet hypertrophy. C5-6: Normal endplates. There is marked disc space narrowing. There is a mild, noncompressive spondylotic bar. There is moderate bilateral foraminal stenosis due to uncinate hypertrophy. C6-7: Normal endplates. There is marked disc space narrowing. Normal central canal. There is mild bilateral foraminal encroachment due to uncinate hypertrophy. C7-T1: Normal endplates. Normal disc height and morphology. Normal central canal and intervertebral neuroforamina. Normal visualized soft tissue structures. CT/Spine Cervical without Contras IMPRESSION: 1. No evidence of trauma. 2. Mild degenerative changes as described above. No significant change compared to the prior study. Electronically Signed: Tiffanie Clinton MD at 20:28 EST Tel , Service support ,
--- NOTE | 2018-12-18 16:18 | CT_ITS ---
STUDY: CT BRAIN WITHOUT CONTRAST REASON FOR EXAM: Female, 78 years old. Fall twice and 5 days. RADIATION DOSAGE (If Supplied By Facility): CTDIvol = ( 44.99 ) mGy, DLP = ( 779.24 ) mGycm TECHNIQUE: Transaxial CT imaging of the brain was performed without administration of intravenous contrast material. Individualized dose optimization techniques were used for this CT. COMPARISON: None. FINDINGS: Left parietal subcutaneous hematoma with no evidence of underlying fracture. Normal calvarium. There is moderate cerebral atrophy with widening of the extra-axial spaces and ventricular dilatation. Encephalomalacia within the right insular ribbon is again noted and similar to November. There are areas of decreased attenuation within the white matter tracts of the supratentorial brain, consistent with microvascular disease changes. Normal basal ganglia and thalami. Normal brainstem. Normal cerebellum. There is no intracranial hemorrhage. There are no findings of an acute ischemic infarction. Normal visualized paranasal sinuses. CT/Brain/Head without Contrast IMPRESSION: Senescent changes above with no evidence of acute intracranial bleed, mass or ischemia. Left high parietal soft tissue swelling as above. Electronically Signed: Blu Piedra DO at 20:01 EST , Service support ,
--- NOTE | 2018-12-18 16:18 | RAD_ITS ---
STUDY: X-RAY - LUMBAR SPINE REASON FOR EXAM: Female, 78 years old. Fall, low back pain. TECHNIQUE: 3 view(s) of the lumbar spine were obtained. COMPARISON: None FINDINGS: Normal lumbar lordosis. There is no substantial scoliosis. There is a normal alignment of the vertebrae. There is diffuse demineralization with multi-level endplate spondylosis. There is multi-level degenerative disc disease with multi-level disc space narrowing. There is atherosclerotic calcification of the abdominal aorta without a demonstrated aneurysm. RAD/Lumbar Spine 2 or 3 Views IMPRESSION: Is degenerative changes with no evidence of compression deformity or malalignment. Electronically Signed: Blu Piedra DO at 20:15 EST , Service support ,
[2018-12-18] MEDS: Ondansetron 4 MG/2 ML Vial IV (16:34)
[2018-12-18] MEDS: fentaNYL 100 MCG/2 ML Ampul 50 MCG IV (16:35)
[2018-12-18 16:38] VITALS: O2SAT 96
[2018-12-18 16:55] LABS: Absolute Lymphocyte Count 0.84 X10^3/ul (0.83-4.51); Absolute Neutrophil Count 3.6 X10^3/uL (2.0-7.7); Basophil# 0.02 X10^3/uL; Basophil% 0.4 % (0-1); Eosinophil# 0.04 X10^3/uL; Eosinophils% 0.8 % (0-5); Hematocrit 34.6 % (37-47); Hemoglobin 11.2 g/dl (12.0-15.0); Lymphocyte # 0.84 X10^3/ul (4.0); Mean Corp Hgb Conc 32.4 g/gl (32-36); Mean Corpuscular Hgb 30.3 pg (27.0-32.0); Mean Corpuscular Volume 93.5 fL (81-99); Mean Platelet Vol. 9.8 fl (6.2-12.0); Monocyte# 0.41 X10^3/uL; Monocyte% 8.3 % (0-10); Neutrophil # 3.61 X10^3/uL (2.7-7.7); Neutrophil % 73.3 % (47-70); Platelet Count 259 K/mm3 (150-450); RBC Distribution Width CV 13.3 % (11.6-14.6); RBC Distribution Width SD 45.2 fl (35.1-43.9); White Blood Count 4.9 K/mm3 (4.4-11.0)
--- NOTE | 2018-12-18 17:05 | RAD_ITS ---
STUDY: X-RAY - RIGHT ELBOW REASON FOR EXAM: Female, 78 years old. Posterior elbow swelling. TECHNIQUE: 3 view(s) of the elbow. COMPARISON: None. FINDINGS: Normal visualized humerus, radius and ulna. There is mild spurring of the ulnar coronoid process. Joint spaces are otherwise well-maintained. There is no destructive bone change. There is mild to moderate posterior soft tissue swelling. RAD/Elbow min 3 Views IMPRESSION: Normal x-ray examination of the elbow. Electronically Signed: Tiffanie Clinton MD at 20:37 EST Tel , Service support ,
[2018-12-18 17:06] LABS: Anion Gap 8 (5-15); BUN 25 mg/dL (7-18); BUN/Creat Ratio 22.9 RATIO (10-20); Calcium,Total 8.7 mg/dL (8.5-10.1); Chloride 105 mmol/L (98-107); Creatinine, Serum 1.09 mg/dL (0.55-1.02); EST Glomerular Filtration Rate 51 mL/min (>60); Est Glom Filt Rate - Afr Amer 62 mL/min (>60); Estimated Creatinine Clearance 37.66 ml/min; Glucose 91 mg/dL (74-106); Potassium 3.3 mmol/L (3.5-5.1); Sodium Level 141 mmol/L (136-145)
[2018-12-18 17:10] LABS: POSITIVE COUNT NO; POSITIVE DIFFERENTIAL NO; POSITIVE MORPHOLOGY NO
--- NOTE | 2018-12-18 17:40 | CM.ED ---
Social Work Assessment Referral Date: 12/18/18 Date of Assessment: 12/18/18 Informant: DR. REYES Reason for Consult: D/C PLANNING/PLACEMENT Information obtained from: PATIENT AND PATIENT?S FAMILY- AND DTR?S-KALI BETANCOURT AND ANNA MARIE MOREJON. Living Arrangements: PATIENT LIVES HOME WITH IN A SINGLE STORY HOME. Supports: PATIENT HAS GOOD SUPPORT FROM FAMILY. Social/Family Stressors: PATIENT HAD 2 FALLS IN THE LAST 5 DAYS. DAUGHTERS CONCERNED WITH PATIENT?S SAFETY IN THE HOME. DAUGHTER?S AND FEEL PATIENT WOULD BENEFIT FROM REHAB BEFORE LOOKING INTO LONG-TERM NEEDS/[facility] FOR BOTH PATIENT AND . Mental Health History: PATIENT WITH HX OF ANXIETY AND IS PRESCRIBED MEDICATION BY PRIMARY CARE DOCTOR- DR. CLAIER IBRAHIM. Substance Abuse History: N/A Interventions: REFERRAL TO TCU- LEFT MESSAGE FOR [facility] WHO IS TAKING REFERRALS. EDUCATION PROVIDED ON LONG-TERM NEEDS AND HALFWAY. Assessment: PATIENT IS A 78 Y/O FEMALE WHO PRESENTS TO ED AFTER A FALL. PATIENT HAS HAD 2 FALLS IN THE LAST 5 DAYS. PATIENT WITH HX OF CVA. PATIENT NORMALLY UTILIZES A CANE FOR ASSISTANCE WITH AMBULATION AND DAUGHTERKALI REPORTS IN THE PROCESS OF OBTAINING A WALKER FOR PATIENT. REPORTS PATIENT IS NORMALLY INDEPENDENT WITH ADLS. DAUGHTERKALI ASSISTS WITH MEALS AND TRANSPORTATION NEEDS. STATES OWN HEALTH ISSUES AND IS ACTIVE WITH [facility]. PATIENT?S CHILDREN CONCERNED WITH BOTH AND PATIENT?S SAFETY IN THE HOME AND FEEL PATIENT WOULD BENEFIT FROM REHAB. IN AGREEMENT. REQUESTING REFERRAL TO TCU. INFORMED INSURANCE AUTH WILL NEED TO BE OBTAINED FROM [facility]. ALL VERBALIZE UNDERSTANDING. UPDATED DR. REYES ON THIS WORKER?S ASSESSMENT. REFERRAL MADE TO TCU AT THIS TIME. PLAN: SNF PLACEMENT, WILL NEED PRECERT. REFERRAL TO TCU.
[2018-12-18 19:34] VITALS: BP 145/78; PULSE 80; RESP 14; O2SAT 98
--- NOTE | 2018-12-18 21:27 | PCM.HP.STD ---
Problem List (1) Non-ischemic cardiomyopathy Status: Chronic (2) Chronic diastolic heart failure Status: Chronic (3) CVA (cerebral vascular accident) Status: Chronic (4) Atherosclerosis of coronary artery of [place] heart without angina pectoris Status: Chronic Comment: CABG x 1 BRITO-LAD 04/22/2014 (5) H/O coronary artery bypass surgery Status: Chronic Comment: CABG x 1 BRITO-LAD 04/22/2014 @ [facility] (6) Presence of cardiac pacemaker Status: Chronic Comment: @ [facility] 04/25/14 RA Lead Revision 04/26/14 (7) Chronic atrial fibrillation Status: Chronic (8) Hypertension Status: Chronic (9) Hyperlipidemia Status: Chronic History of Present Illness Date of Admission: 12/18/18 Chief Complaint: Fall. The patient is a 78 year old F with past medical history as mentioned above presented to the emergency room because of fall. Patient states that she was changing her clothes standing and she lost her balance and fell on the back of her head and her back. She denied any prodromal symptoms such as chest pain, shortness of breath, agitation, dizziness, lightheadedness, syncope or presyncope. She complained of headache in the back of her head that happened after she fell. She complained of right elbow pain for which x-ray done and showed no fractures. Family is concerned about functional decline, frequent falls at home and patient safety is at risk at home and probably she will need placement to [facility] facility. She had a history of chronic atrial fibrillation and she has been on Eliquis for anticoagulation. She had a history of CAD status post CABG and she has been on Eliquis, Zetia and losartan. Chronic systolic CHF and nonischemic cardiomyopathy which seems to be compensated and stable and she has been on diuretics, beta-blockers and losartan. She had stress echocardiogram on May, that showed ejection fraction 55% and it was negative for ischemia by EKG and echocardiographic criteria. In the emergency department, her blood pressure was slightly elevated, other vital signs were stable. Her routine blood work was remarkable for hemoglobin of 11.2 which is chronic, potassium of 3.3, BUN of [address] creatinine of 1.09. CT scan brain revealed left parietal subcutaneous hematoma without evidence of fractures or intracranial bleeding. CT scan cervical spine showed no acute fractures or dislocations, showed mild degenerative chronic changes. X-ray lumbar spine again showed degenerative changes without evidence of acute fractures or dislocations. X-ray of the right elbow showed no fractures. She is being admitted for mechanical fall, closed head injury, left parietal scalp hematoma, physical debility and functional decline likely will require placement to [facility] facility. Past Medical History Past Medical History (Chronic Problems): Chronic Problems (Last Reviewed 08/11/18 @ 15:01 by Rylan Kruse MD) Non-ischemic cardiomyopathy (Chronic) Syncope (Chronic) Chronic diastolic heart failure (Chronic) SA node dysfunction (Chronic) Old non-ST elevation myocardial infarction (NSTEMI) (Chronic) CVA (cerebral vascular accident) (Chronic) Atherosclerosis of coronary artery of [place] heart without angina pectoris (Chronic) CABG x 1 BRITO-LAD 04/22/2014 H/O coronary artery bypass surgery (Chronic 04/22/14) CABG x 1 BRITO-LAD 04/22/2014 @ [facility] Presence of cardiac pacemaker (Chronic 04/25/14) @ [facility] 04/25/14 RA Lead Revision 04/26/14 Chronic atrial fibrillation (Chronic) Hypertension (Chronic) Hyperlipidemia (Chronic) Medical History: Medical History (Last Reviewed 08/11/18 @ 15:01 by Rylan Kruse MD) Chronic diastolic heart failure (Chronic) I50.32 SA node dysfunction (Chronic) I49.5 Old non-ST elevation myocardial infarction (NSTEMI) (Chronic) I25.2 CVA (cerebral vascular accident) (Chronic) I63.9 Atherosclerosis of coronary artery of [place] heart without angina pectoris (Chronic) I25.10 CABG x 1 BRITO-LAD 04/22/2014 Chronic atrial fibrillation (Chronic) I48.2 Hypertension (Chronic) I10 Hyperlipidemia (Chronic) E78.5 Anemia D64.9 Anxiety F41.9 GERD (gastroesophageal reflux disease) K21.9 GI bleed K92.2 Hiatal hernia K44.9 Hypothyroidism E03.9 Liver cyst K76.89 Obstructive sleep apnea G47.33 Allergies atorvastatin [From Lipitor] Allergy (Verified 12/18/18 15:55) Unknown lisinopril Allergy (Verified 12/18/18 15:55) Unknown Home Medications: Ambulatory Orders Medication Instructions Recorded Fenofibrate [Lofibra] 160 mg PO DAILY 11/21/13 Levothyroxine [Synthroid] 50 mcg PO DAILY 11/21/13 Escitalopram Oxalate [Lexapro] 20 mg PO DAILY #30 tab 05/16/14 Iron Poly/Vit C [Niferex-150] 150 mg PO DAILYCM #30 cap 08/22/15 Pantoprazole Sodium [Protonix] 40 mg PO DAILY #30 tab 08/22/15 Ezetimibe [Zetia] 10 mg PO QHS 09/18/16 Potassium Chloride [Klor-Con M20] 20 meq PO DAILY 09/18/16 gabapentin 300 mg capsule 600 mg PO BID cap 04/22/18 Losartan Potassium [Cozaar] 50 mg PO BID tablet 06/19/18 apixaban 5 mg tablet 5 mg PO BID #60 tab 08/15/18 furosemide 20 mg tablet 20 mg PO DAILY #90 tab 08/23/18 Ergocalciferol (Vitamin D2) 50,000 unit PO DAILY 11/12/18 [Vitamin D2] Gabapentin [Neurontin] 300 mg PO LUNCH 11/12/18 Apixaban [Eliquis] 5 mg PO BID 12/18/18 Carbamazepine 100 mg PO TID 12/18/18 Surgical History: Surgical History (Last Reviewed 08/11/18 @ 15:01 by Rylan Kruse MD) H/O coronary artery bypass surgery (Chronic) Onset Date: 04/22/14 Z95.1 CABG x 1 BRITO-LAD 04/22/2014 @ [facility] Presence of cardiac pacemaker (Chronic) Onset Date: 04/25/14 Z95.0 @ [facility] 04/25/14 RA Lead Revision 04/26/14 History of left heart catheterization Onset Date: 02/27/15 Z98.890 04/16/14 @ [facility] and 02/27/2015 @ [facility] Surgical History: cataract, coronary bypass surgery, pacemaker implantation, - - Hemorrhoidectomy. 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 Lives: Spouse/ Significant Other Smoking Status: Never smoker Alcohol: None Drugs: None - *Family History Paternal Family History: Family History (Last Reviewed 08/11/18 @ 15:01 by Rylan Kruse MD) Father CAD (coronary artery disease) Sister CAD (coronary artery disease) Myocardial infarction Hypertension History Items: No pertinent history Maternal Family History: Family History (Last Reviewed 08/11/18 @ 15:01 by Rylan Kruse MD) Father CAD (coronary artery disease) Sister CAD (coronary artery disease) Myocardial infarction Hypertension History Items: Heart Disease, Hypertension Review of Systems Constitutional: Reports: Weakness. Denies: Anorexia, Chills, Fever Eyes: Denies: Blurred vision, Double vision, Drainage, Redness HEENT: Reports: Head Aches. Denies: Difficulty Hearing, Ear Pain, Eye Pain, Nasal Congestion, Sore Throat Cardiovascular: Denies: Chest Pain, Chest Pressure, Edema, Light Headedness, Palpitations, Syncope Respiratory: Denies: Cough, Pleuritic Pain, Shortness of Breath, Sputum production, Wheezing Genitourinary: Denies: Dysuria, Frequency, Hematuria Musculoskeletal: Reports: Joint Pain. Denies: Arm Pain, Back Pain, Foot Pain Skin: Denies: Dryness, Rash Neurological: Reports: Balance problems, Headaches. Denies: Double vision, Change in Speech, Slurred speech, Confusion, Focal weakness, Incoordination, Numbness Psychiatric: Denies: Anxiety, Depression Endocrine: Denies: Change in Body Habitus, Polydipsia VTE Information - Inpt Only VTE Present on Admission: No VTE Mechan Device Prophylaxis: None VTE Pharm Prophylaxis ordered?: No - Physical Exam General: Alert, Oriented x3, Cooperative, No apparent distress HEENT: Atraumatic, PERRLA, EOMI, Normocephalic Oral: Moist Mucosa, No Gingival or Mucosal Lesions/ Ulcerations Neck: Supple, No JVD, Negative Carotid Bruits, Trachea Midline, Thyroid Normal Size and Texture Lungs: Clear to auscultation, No rhonchi, No wheeze, No rales, Diminished Cardiovascular: Regular rate, Regular Rhythm, Normal S1, Normal S2, PMI Normal Abdomen: Bowel Sounds Present, Soft, Non Tender, Non-Distended, No Hepato-splenomegaly, Obese Extremities: No clubbing, No cyanosis, No edema Skin: No rashes, No breakdown Lymphatic: No Cervical, Supraclavicular, or Inguinal Adenopathy Neurological: Cranial nerves II-XII grossly intact, - - Global weakness. No focal deficit. Psych/Mental Status: Normal Affect, Appropriate, Alert and oriented to time, place, person, mood and affect Vital Signs Temp Pulse Resp BP Pulse Ox 98.0 F 80 14 145/78 H 98 12/18/18 15:55 12/18/18 19:34 12/18/18 19:34 12/18/18 19:34 12/18/18 19:34 Oxygen Delivery Method Room Air Weight: 148 lb 9.465 oz Body Mass Index (BMI) 24.7 Finger Stick Blood Glucose 79 Laboratory Tests Past 24 Hrs 12/18/18 12/18/18 16:25 16:25 WBC 4.9 RBC 3.70 L Hgb 11.2 L Hct 34.6 L MCV 93.5 MCH 30.3 MCHC 32.4 RDW 13.3 RDW Differential 45.2 H Plt Count 259 MPV 9.8 Immature Gran % (Auto) 0.200 Neut % (Auto) 73.3 H Lymph % (Auto) 17.0 L [place] % (Auto) 8.3 Eos % (Auto) 0.8 Baso % (Auto) 0.4 Absolute Neuts (auto) 3.6 Absolute Lymphs (auto) 0.84 Total Counted Not Reportable Sodium 141 Potassium 3.3 L Chloride 105 Carbon Dioxide 28.0 Anion Gap 8 BUN 25 H Creatinine 1.09 H Estim Creat Clear Calc 37.66 Est GFR (MDRD) Af Amer 62 Est GFR (MDRD) Non-Af 51 L BUN/Creatinine Ratio 22.9 H Glucose 91 Calcium 8.7 Clinical Impression(s) from Imaging Studies Brain CT 12/18/18 16:18 IMPRESSION: Senescent changes above with no evidence of acute intracranial bleed, mass or ischemia. Left high parietal soft tissue swelling as above. Electronically Signed: Blu Piedra DO at 20:01 EST , Service support , Cervical Spine CT 12/18/18 16:18 IMPRESSION: 1. No evidence of trauma. 2. Mild degenerative changes as described above. No significant change compared to the prior study. Electronically Signed: Tiffanie Clinton MD at 20:28 EST Tel , Service support , Lumbar Spine X-Ray 12/18/18 16:18 IMPRESSION: Is degenerative changes with no evidence of compression deformity or malalignment. Electronically Signed: Blu Piedra DO at 20:15 EST , Service support , Elbow X-Ray 12/18/18 17:05 IMPRESSION: Normal x-ray examination of the elbow. Electronically Signed: Tiffanie Clinton MD at 20:37 EST Tel , Service support , Assessment/Plan This is a 78 years old female patient presented today because of mechanical fall, found to have left parietal scalp hematoma, but family raised the concern of frequent falls at home and functional decline, found to have mild hypokalemia on BMP and she is being admitted for evaluation for probable placement to [facility] facility. #1 mechanical fall/recurrent falls at home, physical debility/functional decline: Patient lives at home with her . CT scan brain, CT scan cervical spine, x-ray lumbar spine and x-ray of the right elbow reviewed as above. Her vital signs are stable, blood pressure slightly elevated. [facility], cardiac monitoring, replace potassium K Dur, gentle IV fluids for hydration, repeat CBC and BMP tomorrow morning, we will do INR, PT OT eval additional treatment. #2 closed head injury/left parietal scalp hematoma: CT scan brain reviewed as above. No evidence of open wounds, no intracranial bleed. Patient is on Eliquis. Plan for monitoring, continue Eliquis, will check INR. #3 mild hypokalemia: Replace potassium with Synthroid, repeat BMP tomorrow morning. #4 CAD status post CABG: Stable, no acute issues. Denies chest pain or shortness of breath. Continue fenofibrate, Zetia and losartan. #5 chronic atrial fibrillation/SA node dysfunction: Status post pacemaker. Rate is controlled, continue Eliquis for anti-coagulation. She is not on any rate control medicine. #6 hypertension: Blood pressure stable, continue losartan. #7 hyperlipidemia: Continue Zetia and fenofibrate. #8 chronic systolic CHF/nonischemic card myopathy: Clinically stable, compensated. Continue losartan, she is not on beta-blockers. #9 hypothyroidism: Continue levothyroxine. #10 DVT prophylaxis: Continue Eliquis. This note was generated with Dragon dictation software. It may contain incorrect words, spelling, and punctuation that were not noted in checking the note before signing. Code Visit OBSV E&M: 72400 Initial observation care L3
[2018-12-18 21:33] VITALS: BP 140/75; PULSE 75; RESP 14; O2SAT 98
--- NOTE | 2018-12-18 21:35 | HP.PCM_ITS ---
Problem List (1) Non-ischemic cardiomyopathy Status: Chronic (2) Chronic diastolic heart failure Status: Chronic (3) CVA (cerebral vascular accident) Status: Chronic (4) Atherosclerosis of coronary artery of [place] heart without angina pectoris Status: Chronic Comment: CABG x 1 BRITO-LAD 04/22/2014 (5) H/O coronary artery bypass surgery Status: Chronic Comment: CABG x 1 BRITO-LAD 04/22/2014 @ [facility] (6) Presence of cardiac pacemaker Status: Chronic Comment: @ [facility] 04/25/14 RA Lead Revision 04/26/14 (7) Chronic atrial fibrillation Status: Chronic (8) Hypertension Status: Chronic (9) Hyperlipidemia Status: Chronic History of Present Illness Date of Admission: 12/18/18 Chief Complaint: Fall. The patient is a 78 year old F with past medical history as mentioned above presented to the emergency room because of fall. Patient states that she was changing her clothes standing and she lost her balance and fell on the back of her head and her back. She denied any prodromal symptoms such as chest pain, shortness of breath, agitation, dizziness, lightheadedness, syncope or presyncope. She complained of headache in the back of her head that happened after she fell. She complained of right elbow pain for which x-ray done and sh owed no fractures. Family is concerned about functional decline, frequent falls at home and patient safety is at risk at home and probably she will need placement to long term facility. She had a history of chronic atrial fibrillation and she has been on Eliquis for anticoagulation. She had a history of CAD status post CABG and she has been on Eliquis, Zetia and losartan. Chronic systolic CHF and nonischemic cardiomyopathy which seems to be compensated and stable and she has been on diuretics, beta-blockers and losartan. She had stress echocardiogram on May, that showed ejection fraction 55% and it was negative for ischemia by EKG and echocardiographic criteria. In the emergency department, her blood pressure was slightly elevated, other vital signs were stable. Her routine blood work was remarkable for hemoglobin of 11.2 which is chronic, potassium of 3.3, BUN of 125 and creatinine of 1.09. CT scan brain revealed left parietal subcutaneous hematoma without evidence of fractures or intracranial bleeding. CT scan cervical spine showed no acute fractures or dislocations, showed mild degenerative chronic changes. X-ray lumbar spine again showed degenerative changes without evidence of acute fractures or dislocations. X-ray of the right elbow showed no fractures. She is being admitted for mechanical fall, closed head injury, left parietal scalp hematoma, physical debility and functional decline likely will require placement to long term facility. Past Medical History Past Medical History (Chronic Problems): Chronic Problems (Last Reviewed 08/11/18 @ 15:01 by Rylan Kruse MD) Non-ischemic cardiomyopathy (Chronic) Syncope (Chronic) Chronic diastolic heart failure (Chronic) SA node dysfunction (Chronic) Old non-ST elevation myocardial infarction (NSTEMI) (Chronic) CVA (cerebral vascular accident) (Chronic) Atherosclerosis of coronary artery of [place] heart without angina pectoris (Chronic) CABG x 1 BRITO-LAD 04/22/2014 H/O coronary artery bypass surgery (Chronic 04/22/14) CABG x 1 BRITO-LAD 04/22/2014 @ [facility] Presence of cardiac pacemaker (Chronic 04/25/14) @ [facility] 04/25/14 RA Lead Revision 04/26/14 Chronic atrial fibrillation (Chronic) Hypertension (Chronic) Hyperlipidemia (Chronic) Medical History: Medical History (Last Reviewed 08/11/18 @ 15:01 by Rylan Kruse MD) Chronic diastolic heart failure (Chronic) I50.32 SA node dysfunction (Chronic) I49.5 Old non-ST elevation myocardial infarction (NSTEMI) (Chronic) I25.2 CVA (cerebral vascular accident) (Chronic) I63.9 Atherosclerosis of coronary artery of [place] heart without angina pectoris (Chronic) I25.10 CABG x 1 BRITO-LAD 04/22/2014 Chronic atrial fibrillation (Chronic) I48.2 Hypertension (Chronic) I10 Hyperlipidemia (Chronic) E78.5 Anemia D64.9 Anxiety F41.9 GERD (gastroesophageal reflux disease) K21.9 GI bleed K92.2 Hiatal hernia K44.9 Hypothyroidism E03.9 Liver cyst K76.89 Obstructive sleep apnea G47.33 Allergies atorvastatin [From Lipitor] Allergy (Verified 12/18/18 15:55) Unknown lisinopril Allergy (Verified 12/18/18 15:55) Unknown Home Medications: Ambulatory Orders Medication Instructions Recorded Fenofibrate [Lofibra] 160 mg PO DAILY 11/21/13 Levothyroxine [Synthroid] 50 mcg PO DAILY 11/21/13 Escitalopram Oxalate [Lexapro] 20 mg PO DAILY #30 tab 05/16/14 Iron Poly/Vit C [Niferex-150] 150 mg PO DAILYCM #30 cap 08/22/15 Pantoprazole Sodium [Protonix] 40 mg PO DAILY #30 tab 08/22/15 Ezetimibe [Zetia] 10 mg PO QHS 09/18/16 Potassium Chloride [Klor-Con M20] 20 meq PO DAILY 09/18/16 gabapentin 300 mg capsule 600 mg PO BID cap 04/22/18 Losartan Potassium [Cozaar] 50 mg PO BID tablet 06/19/18 apixaban 5 mg tablet 5 mg PO BID #60 tab 08/15/18 furosemide 20 mg tablet 20 mg PO DAILY #90 tab 08/23/18 Ergocalciferol (Vitamin D2) 50,000 unit PO DAILY 11/12/18 [Vitamin D2] Gabapentin [Neurontin] 300 mg PO LUNCH 11/12/18 Apixaban [Eliquis] 5 mg PO BID 12/18/18 Carbamazepine 100 mg PO TID 12/18/18 Surgical History: Surgical History (Last Reviewed 08/11/18 @ 15:01 by Rylan Kruse MD) H/O coronary artery bypass surgery (Chronic) Onset Date: 04/22/14 Z95.1 CABG x 1 BRITO-LAD 04/22/2014 @ [facility] Presence of cardiac pacemaker (Chronic) Onset Date: 04/25/14 Z95.0 @ [facility] 04/25/14 RA Lead Revision 04/26/14 History of left heart catheterization Onset Date: 02/27/15 Z98.890 04/16/14 @ [facility] and 02/27/2015 @ [facility] Surgical History: cataract, coronary bypass surgery, pacemaker implantation, - - Hemorrhoidectomy. 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 Lives: Spouse/ Significant Other Smoking Status: Never smoker Alcohol: None Drugs: None - *Family History Paternal Family History: Family History (Last Reviewed 08/11/18 @ 15:01 by Rylan Kruse MD) Father CAD (coronary artery disease) Sister CAD (coronary artery disease) Myocardial infarction Hypertension History Items: No pertinent history Maternal Family History: Family History (Last Reviewed 08/11/18 @ 15:01 by Rylan Kruse MD) Father CAD (coronary artery disease) Sister CAD (coronary artery disease) Myocardial infarction Hypertension History Items: Heart Disease, Hypertension Review of Systems Constitutional: Reports: Weakness. Denies: Anorexia, Chills, Fever Eyes: Denies: Blurred vision, Double vision, Drainage, Redness HEENT: Reports: Head Aches. Denies: Difficulty Hearing, Ear Pain, Eye Pain, Nasal Congestion, Sore Throat Cardiovascular: Denies: Chest Pain, Chest Pressure, Edema, Light Headedness, Palpitations, Syncope Respiratory: Denies: Cough, Pleuritic Pain, Shortness of Breath, Sputum production, Wheezing Genitourinary: Denies: Dysuria, Frequency, Hematuria Musculoskeletal: Reports: Joint Pain. Denies: Arm Pain, Back Pain, Foot Pain Skin: Denies: Dryness, Rash Neurological: Reports: Balance problems, Headaches. Denies: Double vision, Change in Speech, Slurred speech, Confusion, Focal weakness, Incoordination, Numbness Psychiatric: Denies: Anxiety, Depression Endocrine: Denies: Change in Body Habitus, Polydipsia VTE Information - Inpt Only VTE Present on Admission: No VTE Mechan Device Prophylaxis: None VTE Pharm Prophylaxis ordered?: No - Physical Exam General: Alert, Oriented x3, Cooperative, No apparent distress HEENT: Atraumatic, PERRLA, EOMI, Normocephalic Oral: Moist Mucosa, No Gingival or Mucosal Lesions/ Ulcerations Neck: Supple, No JVD, Negative Carotid Bruits, Trachea Midline, Thyroid Normal Size and Texture Lungs: Clear to auscultation, No rhonchi, No wheeze, No rales, Diminished Cardiovascular: Regular rate, Regular Rhythm, Normal S1, Normal S2, PMI Normal Abdomen: Bowel Sounds Present, Soft, Non Tender, Non-Distended, No Hepato- splenomegaly, Obese Extremities: No clubbing, No cyanosis, No edema Skin: No rashes, No breakdown Lymphatic: No Cervical, Supraclavicular, or Inguinal Adenopathy Neurological: Cranial nerves II-XII grossly intact, - - Global weakness. No focal deficit. Psych/Mental Status: Normal Affect, Appropriate, Alert and oriented to time, place, person, mood and affect Vital Signs Temp Pulse Resp BP Pulse Ox 98.0 F 80 14 145/78 H 98 12/18/18 15:55 12/18/18 19:34 12/18/18 19:34 12/18/18 19:34 12/18/18 19:34 Oxygen Delivery Method Room Air Weight: 148 lb 9.465 oz Body Mass Index (BMI) 24.7 Finger Stick Blood Glucose 79 Laboratory Tests Past 24 Hrs 12/18/18 12/18/18 16:25 16:25 WBC 4.9 RBC 3.70 L Hgb 11.2 L Hct 34.6 L MCV 93.5 MCH 30.3 MCHC 32.4 RDW 13.3 RDW Differential 45.2 H Plt Count 259 MPV 9.8 Immature Gran % (Auto) 0.200 Neut % (Auto) 73.3 H Lymph % (Auto) 17.0 L [place] % (Auto) 8.3 Eos % (Auto) 0.8 Baso % (Auto) 0.4 Absolute Neuts (auto) 3.6 Absolute Lymphs (auto) 0.84 Total Counted Not Reportable Sodium 141 Potassium 3.3 L Chloride 105 Carbon Dioxide 28.0 Anion Gap 8 BUN 25 H Creatinine 1.09 H Estim Creat Clear Calc 37.66 Est GFR (MDRD) Af Amer 62 Est GFR (MDRD) Non-Af 51 L BUN/Creatinine Ratio 22.9 H Glucose 91 Calcium 8.7 Clinical Impression(s) from Imaging Studies Brain CT 12/18/18 16:18 IMPRESSION: Senescent changes above with no evidence of acute intracranial bleed, mass or ischemia. Left high parietal soft tissue swelling as above. Electronically Signed: Blu Piedra DO at 20:01 EST , Service support , Cervical Spine CT 12/18/18 16:18 IMPRESSION: 1. No evidence of trauma. 2. Mild degenerative changes as described above. No significant change compared to the prior study. Electronically Signed: Tiffanie Clinton MD at 20:28 EST Tel , Service support , Lumbar Spine X-Ray 12/18/18 16:18 IMPRESSION: Is degenerative changes with no evidence of compression deformity or malalignment. Electronically Signed: Blu Piedra DO at 20:15 EST , Service support , Elbow X-Ray 12/18/18 17:05 IMPRESSION: Normal x-ray examination of the elbow. Electronically Signed: Tiffanie Clinton MD at 20:37 EST Tel , Service support , Assessment/Plan This is a 78 years old female patient presented today because of mechanical fall, found to have left parietal scalp hematoma, but family raised the concern of frequent falls at home and functional decline, found to have mild hypokalemia on BMP and she is being admitted for evaluation for probable placement to long term facility. #1 mechanical fall/recurrent falls at home, physical debility/functional decline: Patient lives at home with her . CT scan brain, CT scan cervical spine, x-ray lumbar spine and x-ray of the right elbow reviewed as above. Her vital signs are stable, blood pressure slightly elevated. Plan: Admit to [facility] floor for observation, cardiac monitoring, replace potassium K Dur, gentle IV fluids for hydration, repeat CBC and BMP tomorrow morning, we will do INR, PT OT eval additional treatment. #2 closed head injury/left parietal scalp hematoma: CT scan brain reviewed as above. No evidence of open wounds, no intracranial bleed. Patient is on Eliquis. Plan for monitoring, continue Eliquis, will check INR. #3 mild hypokalemia: Replace potassium with Synthroid, repeat BMP tomorrow morning. #4 CAD status post CABG: Stable, no acute issues. Denies chest pain or shortness of breath. Continue fenofibrate, Zetia and losartan. #5 chronic atrial fibrillation/SA node dysfunction: Status post pacemaker. Rate is controlled, continue Eliquis for anti-coagulation. She is not on any rate control medicine. #6 hypertension: Blood pressure stable, continue losartan. #7 hyperlipidemia: Continue Zetia and fenofibrate. #8 chronic systolic CHF/nonischemic card myopathy: Clinically stable, compensated. Continue losartan, she is not on beta-blockers. #9 hypothyroidism: Continue levothyroxine. #10 DVT prophylaxis: Continue Eliquis. This note was generated with [employer] software. It may contain incorrect words, spelling, and punctuation that were not noted in checking the note before signing. Code Visit OBSV E&M: 54140 Initial observation care L3
[2018-12-18 21:57] VITALS: BMI 25.0
[2018-12-18 22:00] VITALS: BP 139/47; PULSE 67; RESP 16; TEMP 36.9; O2SAT 98
[2018-12-18 22:06] VITALS: BMI 25.0
[2018-12-18] MEDS: 0.9% NaCl Peripheral Flush Adult/Peds IV (22:27)
[2018-12-18] MEDS: 0.9% Normal Saline 1,000 ML 75 ML IV (22:27)
--- NOTE | 2018-12-18 22:53 | ED.VISSUMM ---
- ER Visit Summary Date of Service: 12/18/18 Chief Complaint: Fall History of Present Illness: The patient is a [address] Kruse and Dr. Paul Cho. She has a history of atrial fibrillation and is on Eliquis. She reports that today she was putting on her clothes lost her balance and fell. She did hit her head. No loss of consciousness. She planes of neck pain is 6 out of 10 severity. Back pain is 7 out of 10 severity. Right elbow pain is 7-10 severity. Family reports patient has had difficulty with her gait and weakness for quite some time. She fell 4 days ago when she lost her balance as well. Review of systems: General: No fever, chills, cold sweats. Cardiovascular: No chest pain, palpitations. Respiratory: No cough, shortness of breath, dyspnea on exertion. Gastrointestinal: No abdominal pain, nausea, vomiting, diarrhea, melena, or hematochezia. Genitourinary: No dysuria, frequency, hematuria. Skin: No rash. Neuro: No numbness, weakness. Physical Examination: Vitals: Stable. Afebrile. Neck: Mild diffuse tenderness palpation. Full range of motion without difficulty. Back: Moderate diffuse turn palpation over the lumbar spine. No point tenderness. General: A&O x 3. NAD. Cardiovascular exam: Regular rate and rhythm, no murmur, rub or gallop. Respiratory exam: Chest nontender. No crepitus. Clear to auscultation bilaterally. No wheezes or stridor. Abdominal exam: Soft, nontender, nondistended, normal bowel sounds. No pain in RUQ or LUQ specifically. No peritoneal signs. Extremity: Clear olecranon bursitis on the right. There is no erythema or warmth.. No pain with range of motion. Test Results: CBC is more for an H&H 11.2 and 34.6, segment neutrophils 73, monocytes 17. Chem-7 marked potassium 3.3, BUN 25, creatinine 1.09. LS spine x-ray showed degenerative changes. Right elbow x-ray shows no acute disease. CT C-spine shows degenerative changes. CT brain shows chronic changes with no intracranial hemorrhage. There is left parietal soft tissue swelling. Emergency Department Course and Treatment: Patient was treated with fentanyl and Zofran IV. She is resting comfortably. Patient was seen by case management in the emergency department. Treatment Plan: Patient will be admitted to the hospital for further evaluation and treatment. She was discussed with Dr. Naranjo. Disposition: Admitted in improved condition. Impression: 1. Repeated falls. 2. Coagulopathy on Eliquis. 3. Right olecranon bursitis. 4. Cervical strain. 5. Generalized weakness. This note was generated with [employer] dictation software. It may contain incorrect words, spelling, and punctuation that were not noted in review of the chart prior to signing ED Disposition - Plan for ED Patient: Disposition: Acute Care Hospital [facility] Chief Complaint: Fall
--- NOTE | 2018-12-18 22:57 | ED.DCSUM_ITS ---
- ER Visit Summary Date of Service: 12/18/18 Chief Complaint: Fall History of Present Illness: The patient is a [address] Kruse and Dr. Paul Cho. She has a history of atrial fibrillation and is on Eliquis. She reports that today she was putting on her clothes lost her balance and fell. She did hit her head. No loss of consciousness. She planes of neck pain is 6 out of 10 severity. Back pain is 7 out of 10 severity. Right elbow pain is 7- 10 severity. Family reports patient has had difficulty with her gait and weakness for quite some time. She fell 4 days ago when she lost her balance as well. Review of systems: General: No fever, chills, cold sweats. Cardiovascular: No chest pain, palpitations. Respiratory: No cough, shortness of breath, dyspnea on exertion. Gastrointestinal: No abdominal pain, nausea, vomiting, diarrhea, melena, or hematochezia. Genitourinary: No dysuria, frequency, hematuria. Skin: No rash. Neuro: No numbness, weakness. Physical Examination: Vitals: Stable. Afebrile. Neck: Mild diffuse tenderness palpation. Full range of motion without difficulty. Back: Moderate diffuse turn palpation over the lumbar spine. No point tenderness. General: A&O x 3. NAD. Cardiovascular exam: Regular rate and rhythm, no murmur, rub or gallop. Respiratory exam: Chest nontender. No crepitus. Clear to auscultation bilaterally. No wheezes or stridor. Abdominal exam: Soft, nontender, nondistended, normal bowel sounds. No pain in RUQ or LUQ specifically. No peritoneal signs. Extremity: Clear olecranon bursitis on the right. There is no erythema or warmth.. No pain with range of motion. Test Results: CBC is more for an H&H 11.2 and 34.6, segment neutrophils 73, monocytes 17. Chem-7 marked potassium 3.3, BUN 25, creatinine 1.09. LS spine x-ray showed degenerative changes. Right elbow x-ray shows no acute disease. CT C-spine shows degenerative changes. CT brain shows chronic changes with no intracranial hemorrhage. There is left parietal soft tissue swelling. Emergency Department Course and Treatment: Patient was treated with fentanyl and Zofran IV. She is resting comfortably. Patient was seen by case management in the emergency department. Treatment Plan: Patient will be admitted to the hospital for further evaluation and treatment. She was discussed with Dr. Naranjo. Disposition: Admitted in improved condition. Impression: 1. Repeated falls. 2. Coagulopathy on Eliquis. 3. Right olecranon bursitis. 4. Cervical strain. 5. Generalized weakness. This note was generated with [employer] dictation software. It may contain incorrect words, spelling, and punctuation that were not noted in review of the chart prior to signing ED Disposition - Plan for ED Patient: Disposition: Acute Care Hospital [facility] Chief Complaint: Fall
[2018-12-18 22:59] LABS: International Normalized Ratio 1.3; Prothrombin Time (Protime)PT. 16.2 SECONDS (11.7-14.9)
[2018-12-18 23:02] VITALS: PULSE 62
[2018-12-19 03:52] VITALS: PULSE 60
[2018-12-19] MEDS: Levothyroxine 50 MCG Tablet PO (05:04)
[2018-12-19] MEDS: carBAMazepine 200 MG Tablet 100 MG PO ×2 (05:05→14:35)
[2018-12-19] MEDS: Acetaminophen 325 MG Tablet 650 MG PO (05:08)
[2018-12-19 05:09] VITALS: BP 127/56; PULSE 63; RESP 16; TEMP 37.1; O2SAT 95
[2018-12-19 05:23] LABS: Absolute Lymphocyte Count 1.13 X10^3/ul (0.83-4.51); Absolute Neutrophil Count 1.9 X10^3/uL (2.0-7.7); Basophil# 0.07 X10^3/uL; Basophil% 1.9 % (0-1); Eosinophil# 0.16 X10^3/uL; Eosinophils% 4.4 % (0-5); Hematocrit 31.3 % (37-47); Lymphocyte # 1.13 X10^3/ul (4.0); Lymphocyte % 30.8 % (19-41); Mean Corp Hgb Conc 31.9 g/gl (32-36); Mean Corpuscular Hgb 30.7 pg (27.0-32.0); Mean Platelet Vol. 9.8 fl (6.2-12.0); Monocyte# 0.43 X10^3/uL; Monocyte% 11.7 % (0-10); Neutrophil # 1.86 X10^3/uL (2.7-7.7); Neutrophil % 50.7 % (47-70); Platelet Count 257 K/mm3 (150-450); RBC Distribution Width SD 43.7 fl (35.1-43.9); Red Blood Count 3.26 M/mm3 (4.2-5.4); White Blood Count 3.7 K/mm3 (4.4-11.0)
[2018-12-19 05:28] LABS: POSITIVE COUNT NO; POSITIVE DIFFERENTIAL NO; POSITIVE MORPHOLOGY NO
[2018-12-19 05:34] LABS: Anion Gap 7 (5-15); BUN 24 mg/dL (7-18); BUN/Creat Ratio 21.2 RATIO (10-20); Calcium,Total 8.4 mg/dL (8.5-10.1); Chloride 108 mmol/L (98-107); Creatinine, Serum 1.13 mg/dL (0.55-1.02); EST Glomerular Filtration Rate 49 mL/min (>60); Est Glom Filt Rate - Afr Amer 60 mL/min (>60); Estimated Creatinine Clearance 36.33 ml/min; Glucose 94 mg/dL (74-106); Potassium 4.3 mmol/L (3.5-5.1); Sodium Level 143 mmol/L (136-145)
[2018-12-19 07:36] LABS: Magnesium 2.2 mg/dL (1.6-2.6); Phosphorus 2.9 mg/dL (2.5-4.9); Thyroid Stim Hormone (TSH) 2.39 uIU/mL (0.358-3.74)
[2018-12-19] MEDS: Gabapentin 600 MG Tablet PO (08:57)
[2018-12-19] MEDS: Iron Polysaccharide Complex 150 MG CAPSULE PO (08:57)
[2018-12-19] MEDS: Pantoprazole Sodium 40 MG Tablet PO (09:02)
[2018-12-19] MEDS: APIXABAN 5 MG TABLET PO (09:02)
[2018-12-19] MEDS: Escitalopram Oxalate 20 MG Tablet PO (09:02)
[2018-12-19] MEDS: Fenofibrate 145 MG Tablet PO (09:02)
[2018-12-19] MEDS: Losartan Potassium 50 MG Tablet PO (09:02)
[2018-12-19 10:03] VITALS: PULSE 60
--- NOTE | 2018-12-19 10:03 | PCM.TXEXTCAR ---
- Diet 12/18/18 21:56 Diet: Cardiac/Low Cholesterol Food consistency:: Regular Liquid Consistency:: Regular/Thin Ensure TID with meals in addition for added supplementation - Routine Orders/Code Status Enema Type: Fleetz Enema Frequency: Daily PRN Suppository Type: Dulcolax 10mg Suppository Frequency: Daily PRN O2 Liters per Minute: 2 O2 Frequency: Continuous Keep PO Greater than or Equal to (%): 92 Routine Lab Work: - - CBC, BMP within 1 week. [facility] Wound(s) left knee Wound Type: Abrasion left 2nd toenail Wound Type: black left eyebrow area Wound Type: Laceration coccyx Wound Type: Pressure Injury - Suggestions for Active Care Change Position every (hours): 2 Hours to sit in a chair: 6 Times a day to sit in chair: 3 - Therapies Weight Bearing: Full weight bearing Physical Therapy: Eval and Treat Occupational Therapy: Eval and Treat - Allergies/Procedures Done in Hospital Allergies/Adverse Reactions: Allergies atorvastatin [From Lipitor] Allergy (Verified 12/18/18 15:55) Unknown lisinopril Allergy (Verified 12/18/18 15:55) Unknown Procedures: None - Type of Care/Length of Stay Estimated LOS: Convalescent Care Less Than 30 days Type of Care Needed: Skilled Rehab Potential: Fair Prognosis: Fair - Additional Orders/Day of Discharge Additional Orders: (1) Fall precautions. (2) Position changes q 2. (3) Continue Wound RN evaluation at Facility. (4) Aspiration precautions. (5) Nutrition to follow at Facility for nutritional input. (6) Continue IS 10x/hr 7a-7p. (7) Of note recent anticoagulation discontinued secondary to frequent falls and risk>benefit with history of atrial fibrillation. If more stable, not falling may consider restarting if appropriate. H&P will serve as current which was dated: 12/18/18 Day of Discharge: 12/19/18 - Follow Up Care Primary Care Physician: Paul Cho MD [Primary Care Provider] - Please follow up with your Primary Care Physician in: Follow-up within 3-5 days discharge hosp and within 1-2 transition home. Please Follow Up With: Natalie Mendez PA When: Please contact Cardiology office and follow-up within 1-2 weeks.
--- NOTE | 2018-12-19 10:04 | CASEMGMT ---
Addendum entered by Heydi Verdugo 12/19/18 10:21: CASH spoke with Erica with TCU stating she has one bed available and will load pt with [facility] once PT/OT works with pt. Original Note: Social Work Note SW received message from Becca Hoang stating pt is ready for discharge today if pre-cert is obtained. CASH placed a call to Erica who is covering TCU referrals and left her a message asking if she is able to accept pt on TCU. CASH waiting for call back from Erica with TCU. 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
--- NOTE | 2018-12-19 10:18 | DS.PCM_ITS ---
Discharge Date and Diagnosis Date of Admission: 12/18/18 Date of Discharge: 12/19/18 - Primary Discharge Diagnosis (1) Recurrent Mechanical Falls on Anticoagulation w/ Closed Head Injury, Left Scalp Hematoma (2) Failure to Thrive Adult (3) Hypokalemia, Mild (4) CAD s/p CABG (5) Chronic Atrial Fibrillation on anticoagulation (6) Hypertension (7) Hyperlipidemia (8) Chronic Systolic CHF/Non-ischemic Cardiomyopathy (9) Hypothyroidism (10) DNR-CCA, no intubation - Secondary Discharge Diagnosis Chronic Problems (Last Reviewed 08/11/18 @ 15:01 by Rylan Kruse MD) Non-ischemic cardiomyopathy (Chronic) Syncope (Chronic) Chronic diastolic heart failure (Chronic) SA node dysfunction (Chronic) Old non-ST elevation myocardial infarction (NSTEMI) (Chronic) CVA (cerebral vascular accident) (Chronic) Atherosclerosis of coronary artery of [place] heart without angina pectoris (Chronic) CABG x 1 BRITO-LAD 04/22/2014 H/O coronary artery bypass surgery (Chronic 04/22/14) CABG x 1 BRITO-LAD 04/22/2014 @ [facility] Presence of cardiac pacemaker (Chronic 04/25/14) @ [facility] 04/25/14 RA Lead Revision 04/26/14 Chronic atrial fibrillation (Chronic) Hypertension (Chronic) Hyperlipidemia (Chronic) Hospital Course and Treatment Operations: None Procedures: EKG Summary of Care Provided: The patient is a 78 y/o F w/ PMHx: Chronic Atrial Fibrillation on Eliquis anticoagulation, CAD s/p CABG, HTN, HLD, Chronic Systolic CHF/Nonischemic Cardiomyopathy s/p pacemaker/AICD, Hypothyroidism with history of frequent recurrent falls at home who presented to the [facility] on 12/18/18 with recurrent most recent fall with closed head injury with left parietal scalp hematoma, noting severe instability and her having difficulty assisting her secondary to his own advanced age and co-morbidities. In the ED work-up included CT brain with senescent changes with no evidence of acute intercranial bleed, mass or ischemia with left high parietal soft tissue swelling, cervical spine CT with no evidence of trauma with mild degenerative changes unchanged from prior study, lumbar spine plain film with degenerative changes with no acute evidence of compression deformity or malalignment, plain film right elbow unremarkable, see with W BC 4.9, hemoglobin 11.2, platelet 259 without market shift, INR 1.3, BMP with potassium 3.3, BUN/Cr 25/1.09 with supplementation administered with repeat K 4.3. Patient admitted to [facility] discontinued given notable fall history with risk > benefits with history of chronic atrial fibrillation. Mag 2.2. TSH 2.39. UA requested however patient asymptomatic and pending at discharge planning to be cautious. PT, OT, CM consulted to assist with discharge planning to TCU for ongoing therapies given high risk for acute injury, accidental harm if returned to home. DAY OF DISCHARGE PROGRESS NOTE: Subjective: Patient without acute event overnight per self and nursing report. Patient notes less sore than day prior with decreased size of L scalp hematoma. Understands plan of PT, OT, CM evaluations w/ transition to TCU for ongoing therapies secondary to safety concerns if return to home. Patient denies fever, chills, nausea, emesis, abdominal pain, chest pain or dyspnea. Patient agreeable to discharge to SNF. Patient will be discharged with follow-up with primary care physician within 3-5 days in addition to follow-up within 1-2 days post-SNF discharge. Objective: 98.8, heart rate 63, BP 127/56, respiratory rate 16, 95% on 2 L nasal cannula. Physical Examination: General: awake, alert, oriented x 3 and cooperative, seated upright in the bed, NAD. Skin: normal color, turgor, no icterus, cyanosis, occasional various staged ecchymoses to the extremities, abrasion with dressing to right elbow, abrasion to lower extremities, left parietal scalp hematoma decreased in size, mildly tender palpation as expected, BL LE chronic venous stasis skin changes.. HEENT: AT/NC, EOMI, PERRLA, MMM. Lungs: Diminished BS bases, moderate effort, no rales, ronchi or wheezing; Heart: Paced; no gallop, rub audible. Abdomen: soft, NTTP, ND, normal BS. Extremities: no cyanosis, clubbing, BL LE chronic venous stasis skin changes. Neurological: patient awake, alert, oriented x 3; cognitive function appears intact upon questioning,; pupils equally reactive to light and accomodation; cranial nerves II-XII grossly normal, moving all 4 extremities, strength severely globally decreased. Psychiatric: affect appears normal, no acute evidence of depressive or anxiety feelings. Assessment and Plan: Please see hospital summary above. - Physical Exam Vital Signs Temp Pulse Resp BP Pulse Ox 98.8 F 63 16 127/56 H 95 12/19/18 05:09 12/19/18 05:09 12/19/18 05:09 12/19/18 05:09 12/19/18 05:09 Oxygen Flow Rate (L/min) 2 Oxygen Delivery Method Nasal Cannula Weight: 150 lb 2.157 oz Body Mass Index (BMI) 25.0 Finger Stick Blood Glucose 79 Intake and Output for Last 24 Hours 12/17/18 12/18/18 12/19/18 23:59 23:59 23:59 Intake Total 732 / 732 Balance 732 / 732 Laboratory Tests Past 24 Hrs 12/18/18 12/18/18 12/18/18 16:25 16:25 16:25 WBC 4.9 RBC 3.70 L Hgb 11.2 L Hct 34.6 L MCV 93.5 MCH 30.3 MCHC 32.4 RDW 13.3 RDW Differential 45.2 H Plt Count 259 MPV 9.8 Immature Gran % (Auto) 0.200 Neut % (Auto) 73.3 H Lymph % (Auto) 17.0 L [place] % (Auto) 8.3 Eos % (Auto) 0.8 Baso % (Auto) 0.4 Absolute Neuts (auto) 3.6 Absolute Lymphs (auto) 0.84 Total Counted Not Reportable PT 16.2 H INR 1.3 Sodium 141 Potassium 3.3 L Chloride 105 Carbon Dioxide 28.0 Anion Gap 8 BUN 25 H Creatinine 1.09 H Estim Creat Clear Calc 37.66 Est GFR (MDRD) Af Amer 62 Est GFR (MDRD) Non-Af 51 L BUN/Creatinine Ratio 22.9 H Glucose 91 Calcium 8.7 Phosphorus Magnesium TSH 12/19/18 12/19/18 12/19/18 05:05 05:05 05:05 WBC 3.7 L RBC 3.26 L Hgb 10.0 L Hct 31.3 L MCV 96.0 MCH 30.7 MCHC 31.9 L RDW 13.0 RDW Differential 43.7 Plt Count 257 MPV 9.8 Immature Gran % (Auto) 0.500 Neut % (Auto) 50.7 Lymph % (Auto) 30.8 [place] % (Auto) 11.7 H Eos % (Auto) 4.4 Baso % (Auto) 1.9 H Absolute Neuts (auto) 1.9 L Absolute Lymphs (auto) 1.13 Total Counted Not Reportable PT INR Sodium 143 Potassium 4.3 Chloride 108 H Carbon Dioxide 28.0 Anion Gap 7 BUN 24 H Creatinine 1.13 H Estim Creat Clear Calc 36.33 Est GFR (MDRD) Af Amer 60 Est GFR (MDRD) Non-Af 49 L BUN/Creatinine Ratio 21.2 H Glucose 94 Calcium 8.4 L Phosphorus 2.9 Magnesium 2.2 TSH 2.39 Home Medications: Medications to take at Discharge Fenofibrate [Lofibra] 160 mg PO DAILY 11/21/13 Levothyroxine [Synthroid] 50 mcg PO DAILY 11/21/13 Escitalopram Oxalate [Lexapro] 20 mg PO DAILY #30 tab 05/16/14 Iron Poly/Vit C [Niferex-150] 150 mg PO DAILYCM #30 cap 08/22/15 Pantoprazole Sodium [Protonix] 40 mg PO DAILY #30 tab 08/22/15 Ezetimibe [Zetia] 10 mg PO QHS 09/18/16 Potassium Chloride [Klor-Con M20] 20 meq PO DAILY 09/18/16 gabapentin 300 mg capsule 600 mg PO BID cap 04/22/18 Losartan Potassium [Cozaar] 50 mg PO BID tablet 06/19/18 furosemide 20 mg tablet 20 mg PO DAILY #90 tab 08/23/18 Ergocalciferol (Vitamin D2) [Vitamin D2] 50,000 unit PO SA 11/12/18 Gabapentin [Neurontin] 300 mg PO LUNCH 11/12/18 Carbamazepine 100 mg PO TID 12/18/18 Aspirin [Aspirin, Baby] 81 mg PO DAILY@0800 #30 tab.chew 12/19/18 Hydrocodone Bitart/Apap 5-325 [[place] 5/325] 1 - 2 tab PO Q6H PRN PRN 4 Days #20 tab 12/19/18 Following Prescrptions Were Given to Patient: Hydrocodone Bitart/Apap 5-325 [[place] 5/325] 1 - 2 tab PO Q6H PRN PRN 4 Days #20 tab PRN Reason: Moderate-severe pain Aspirin [Aspirin, Baby] 81 mg PO DAILY@0800 #30 tab.chew Primary Care Physician: Paul Cho MD [Primary Care Provider] - Please follow up with your Primary Care Physician in: Follow-up within 3-5 days discharge hosp and within 1-2 transition home. Please Follow Up With: Natalie Mendez PA When: Please contact Cardiology office and follow-up within 1-2 weeks. Disposition: Halfway facility Minutes spent on discharge:: 35 Patient Condition:: Fair Medical Necessity - Tobacco Use Smoking Status: Former smoker Meaningful Use Info Meaningful Use Diagnoses (Choose all that apply): None applicable Code Visit OBSV E&M: 07002 Observation care discharge
[2018-12-19 11:00] VITALS: BP 128/59; PULSE 62; RESP 16; TEMP 36.3; O2SAT 93
--- NOTE | 2018-12-19 11:00 | CASEMGMT ---
Social Work Note CASH received call from Erica with [facility] asking if TCU is appropriate for pt as per H+P and note from SW in ED, pt's family is seeking bed bug exterminator placement. SW met with pt, introduced self and role. Pt states she doesn't remember the conversation that took place in ED yesterday regarding TCU. Pt gave this worker permission to speak to her , or daughters (Gustavo and Laura). SW reviewed pt's chart and person to notify is listed as being pt's daughter Gustavo. Per outside parts salesman questions, pt lists her daughter Laura as HCPOA but no documents on file and no number listed for Laura. SW spoke with Gustavo and expressed admissions in TCU concerns with pt going there if Jail Care is what pt's family is looking for at this time. Gustavo states that being at [facility] is non threatening for her mother and is a closer drive for pt's to see her. Gustavo states that they are looking for short term placement at [facility] while they get their ducks in a row trying to get pt and pt's to [facility] for usp care. SW expressed concerns to Gustavo in regards to moving patient around from [facility] to [facility] and asked Gustavo if it would be better to see if [facility] can take pt from [facility] and then transition to usp care with her . Gustavo reiterates that she would like her mom to go to [facility] for short term care and then work on trying to get her parents placed at [facility] for usp care together. CASH explained that [facility] would have a bed for pt and that pre-cert would need to be obtained before pt is able to discharge to TCU. CASH explained that once pt is admitted to TCU or any SNF, SW at TCU/SNF would send updates to pt's insurance and insurance would decide the last day that they pay for pt to be at SNF. CASH briefly explained about Medicaid being the only insurance that will pay for bed bug exterminator care and Gustavo states that she feels her parent's wouldn't qualify for it initially as they have assets. SW explained that once pt and pt's decide on usp placement, staff at the facility will be able to assist with information about financial regarding bed bug exterminator placement. Gustavo states that her and her father will be coming to [facility] today at 3:30pm and requests to speak to this worker. SW explained that this worker will try to be available at that time. CASH placed a call to Erica with [facility] and updated her on conversation this worker had with pt's daughter Gustavo. Erica confirms that she is able to accept pt and will submit for pre-cert once PT/OT evaluates pt. Plan: TCU pending pre-cert Heydi Verdugo MSW, SALES PROMOTION REPRESENTATIVE
[2018-12-19 12:49] LABS: Mucous, Urine 0 SEEN /hpf (<or=2+); Red Blood Cells-Urine 0 SEEN /hpf (0-5); White Blood Cells 0 SEEN /hpf (0-5)
[2018-12-19 12:59] LABS: Color, Urine Yellow (Yellow); Glucose, Dipstick Normal (Normal); Ketone-Dipstick Negative (Negative); Leukocyte Esterase-Dipstick 25 /ul (Negative); Nitrite-Dipstick Negative (Negative); Occult Blood-Urine Negative /ul (Negative); Protein-Dipstick Negative (Negative); Urine Bilirubin Dipstick Negative (Negative); Urine Clarity Sl. Cloudy (Clear); Urine Urobilinogen 4 mg/dl (Normal)
[2018-12-19 13:01] LABS: Bacteria RARE /hpf (None Seen); Squamous Epithelial Cells - UA 0-5 SEEN /hpf (5-10)
--- NOTE | 2018-12-19 14:30 | CASEMGMT ---
Social Work Note CASH placed a call to Erica with [facility] stating PT/OT have worked with pt and evaluations are available. CASH updated RN CHIN Hoang that pre-cert has yet to be submitted and is unlikely that pre-cert will come today. Physician updated. Plan: TCU pending pre-cert Heydi Verdugo FAST FOOD FRY COOK, TRAILER TANK TRUCK DRIVER
[2018-12-19] MEDS: Gabapentin 300 MG Capsule PO (14:34)
--- NOTE | 2018-12-19 14:51 | PN_ITS ---
Subjective: Patient without acute event overnight per self and nursing report. Patient notes less sore than day prior with decreased size of L scalp hematoma. Understands plan of PT, OT, CM evaluations w/ transition to TCU for ongoing therapies secondary to safety concerns if return to home once insurance approval obtained. Patient denies fever, chills, nausea, emesis, abdominal pain, chest pain or dyspnea. Objective: Physical Examination: General: awake, alert, oriented x 3 and cooperative, seated upright in the bed, NAD. Skin: normal color, turgor, no icterus, cyanosis, occasional various staged ecchymoses to the extremities, abrasion with dressing to right elbow, abrasion to lower extremities, left parietal scalp hematoma decreased in size, mildly tender palpation as expected, BL LE chronic venous stasis skin changes.. HEENT: AT/NC, EOMI, PERRLA, MMM. Lungs: Diminished BS bases, moderate effort, no rales, ronchi or wheezing; Heart: Paced; no gallop, rub audible. Abdomen: soft, NTTP, ND, normal BS. Extremities: no cyanosis, clubbing, BL LE chronic venous stasis skin changes. Neurological: patient awake, alert, oriented x 3; cognitive function appears intact upon questioning,; pupils equally reactive to light and accomodation; cranial nerves II-XII grossly normal, moving all 4 extremities, strength severely globally decreased. Psychiatric: affect appears normal, no acute evidence of depressive or anxiety feelings. Vitals/I&O's: Vital Signs Temp Pulse Resp BP Pulse Ox 97.3 F L 62 16 128/59 H 93 12/19/18 11:00 12/19/18 11:00 12/19/18 11:00 12/19/18 11:00 12/19/18 11:00 Oxygen Flow Rate (L/min) 2 Oxygen Delivery Method Nasal Cannula Weight: 150 lb 2.157 oz Body Mass Index (BMI) 25.0 Finger Stick Blood Glucose 79 Intake and Output for Last 24 Hours 12/17/18 12/18/18 12/19/18 23:59 23:59 23:59 Intake Total 732 / 732 Balance 732 / 732 Laboratory Results 12/18/18 16:25: WBC 4.9, RBC 3.70 L, Hgb 11.2 L, Hct 34.6 L, MCV 93.5, MCH 30.3, MCHC 32.4, RDW 13.3, RDW Differential 45.2 H, Plt Count 259, MPV 9.8, Immature Gran % (Auto) 0.200, Neut % (Auto) 73.3 H, Lymph % (Auto) 17.0 L, Hardy % (Auto) 8.3, Eos % (Auto) 0.8, Baso % (Auto) 0.4, Absolute Neuts (auto) 3.6, Absolute Lymphs (auto) 0.84, Total Counted Not Reportable 12/18/18 16:25: Sodium 141, Potassium 3.3 L, Chloride 105, Carbon Dioxide 28.0, Anion Gap 8, BUN 25 H, Creatinine 1.09 H, Estim Creat Clear Calc 37.66, Est GFR (MDRD) Af Amer 62, Est GFR (MDRD) Non-Af 51 L, BUN/Creatinine Ratio 22.9 H, Glucose 91, Calcium 8.7 12/18/18 16:25: PT 16.2 H, INR 1.3 12/19/18 05:05: WBC 3.7 L, RBC 3.26 L, Hgb 10.0 L, Hct 31.3 L, MCV 96.0, MCH 30.7, MCHC 31.9 L, RDW 13.0, RDW Differential 43.7, Plt Count 257, MPV 9.8, Immature Gran % (Auto) 0.500, Neut % (Auto) 50.7, Lymph % (Auto) 30.8, Hardy % (Auto) 11.7 H, Eos % (Auto) 4.4, Baso % (Auto) 1.9 H, Absolute Neuts (auto) 1.9 L, Absolute Lymphs (auto) 1.13, Total Counted Not Reportable 12/19/18 05:05: Sodium 143, Potassium 4.3, Chloride 108 H, Carbon Dioxide 28.0, Anion Gap 7, BUN 24 H, Creatinine 1.13 H, Estim Creat Clear Calc 36.33, Est GFR (MDRD) Af Amer 60, Est GFR (MDRD) Non-Af 49 L, BUN/Creatinine Ratio 21.2 H, Glucose 94, Calcium 8.4 L 12/19/18 05:05: Phosphorus 2.9, Magnesium 2.2, TSH 2.39 12/19/18 12:30: Urine Color Yellow, Urine Clarity Sl. Cloudy, Urine pH 7.0, Ur Specific Hines 1.010, Urine Protein Negative, Urine Glucose (UA) Normal, Urine Ketones Negative, Urine Occult Blood Negative, Urine Nitrite Negative, Urine Bilirubin Negative, Urine Urobilinogen 4 H, Ur Leukocyte Esterase 25 H, Urine RBC 0 SEEN, Urine WBC 0 SEEN, Ur Squamous Epith Cells 0-5 SEEN, Urine Bacteria RARE, Urine Mucus 0 SEEN Current Medications Acetaminophen (Tylenol) 650 mg PO Q6H PRN PRN PRN Reason: Fever, headache, pain Last Admin: 12/19/18 05:08 Dose: 650 mg Hydrocodone Bitart/Acetaminophen ([place] 5mg-325mg) 1 - 2 tablet PO Q6H PRN PRN PRN Reason: Moderate-severe pain Apixaban (Eliquis) 5 mg PO BID [facility] Last Admin: 12/19/18 09:02 Dose: 5 mg Carbamazepine (Tegretol) 100 mg PO TID [facility] Last Admin: 12/19/18 14:35 Dose: 100 mg Ezetimibe (Zetia) 10 mg PO QHS [facility] Last Admin: 12/18/18 23:09 Dose: Not Given Escitalopram Oxalate (Lexapro) 20 mg PO DAILY [facility] Last Admin: 12/19/18 09:02 Dose: 20 mg Fenofibrate (Tricor) 145 mg PO DAILY [facility] Last Admin: 12/19/18 09:02 Dose: 145 mg Gabapentin (Neurontin) 300 mg PO LUNCH [facility] Last Admin: 12/19/18 14:34 Dose: 300 mg Gabapentin (Neurontin) 600 mg PO BID@0800,2200 [facility] Last Admin: 12/19/18 08:57 Dose: 600 mg Hydralazine HCl (Apresoline Iv) 10 mg IV Q4H PRN PRN PRN Reason: SBP > 160 Levothyroxine Sodium (Synthroid) 50 mcg PO DAILY@0600 [facility] Last Admin: 12/19/18 05:04 Dose: 50 mcg Losartan Potassium (Cozaar) 50 mg PO BID [facility] Last Admin: 12/19/18 09:02 Dose: 50 mg Magnesium Hydroxide (Milk Of Magnesia) 30 ml PO DAILY PRN PRN PRN Reason: Constipation Ondansetron HCl (Zofran) 4 mg IV Q6H PRN PRN PRN Reason: NAUSEA/VOMITING Pantoprazole Sodium (Protonix) 40 mg PO DAILY [facility] Last Admin: 12/19/18 09:02 Dose: 40 mg Polysaccharide [facility]rex 150[facility] Admin: 12/19/18 08:57 Dose: 150 mg Potassium Chloride (K-Dur) [facility] Last Admin: 12/19/18 08:59 Dose: 20 meq Sodium Chloride () 5 - 15 ml IV UD PRN PRN Reason: SALINE FLUSH Last Admin: 12/18/18 22:27 Dose: 10 ml Medical Necessity - Tobacco Use Smoking Status: Former smoker Assessment/Plan The patient is a 78 y/o F w/ PMHx: Chronic Atrial Fibrillation on Eliquis anticoagulation, CAD s/p CABG, HTN, HLD, Chronic Systolic CHF/Nonischemic Cardiomyopathy s/p pacemaker/AICD, Hypothyroidism with history of frequent recurrent falls at home who presented to the [facility] on 12/18/18 with recurrent most recent fall with closed head injury with left parietal scalp hematoma, noting severe instability and her having difficulty assisting her secondary to his own advanced age and co-morbidities. (1) Recurrent Mechanical Falls on Anticoagulation w/ Closed Head Injury, Left Scalp Hematoma, Failure to Thrive Adult: ED work-up included CT brain with senescent changes with no evidence of acute intercranial bleed, mass or ischemia with left high parietal soft tissue swelling, cervical spine CT with no evidence of trauma with mild degenerative changes unchanged from prior study, lumbar spine plain film with degenerative changes with no acute evidence of compression deformity or malalignment, plain film right elbow unremarkable, see with W BC 4.9, hemoglobin 11.2, platelet 259 without market shift, INR 1.3, BMP with potassium 3.3, BUN/Cr 25/1.09 with supplementation administered with repeat K 4.3. Patient admitted to [facility] discontinued given notable fall history with risk > benefits with history of chronic atrial fibrillation. Mag 2.2. TSH 2.39. UA requested however patient asymptomatic and pending at discharge planning to be cautious. PT, OT, CM consulted to assist with discharge planning to TCU for ongoing therapies given high risk for acute injury, accidental harm if returned to home. (2) Hypokalemia, Mild: Admission K+ 3.3, supplementation given, repeat level 4.3, resolved. Mag 2.2. (3) CAD: s/p CABG, discontinuation of Eliquis, will start baby aspirin, continue Zetia and Lofibra, noted statin allergy, not on beta-sharon therapy, continue ARB. (4) Chronic Atrial Fibrillation: Previously was on anticoagulation Eliquis, will discontinue given patient notably high fall risk with risk to benefit ratio >, following therapies and prison facility stay if clinically improved and less fall risk may consider restart on her regimen. It is not on rate or rhythm control. (5) Hypertension: Continue home regimen including Lasix, losartan, PRN hydralazine. (6) Hyperlipidemia: Continue home Zetia and Lofibra regimen. (7) Chronic Systolic CHF/Non-ischemic Cardiomyopathy (8) Hypothyroidism: Continue home synthroid regimen, TSH normal. (9) Iron deficiency anemia: Admission Hgb 11.2, stable, continue home iron supplementation. (10) GERD: Continue home PPI. (11) Suspected CKD stage III: Admission BUN?Cr 25/1.09, prior Cr similar, trend. (12) DVT Prophylaxis: SCDs, discontinue eliquis given notable fall risk. Dosed today, start chemoprophylaxis in AM. (13) CODE status: Discussed CODE status at length including difference between FULL code, DNR-CCA and DNR-CC status. Following discussions about the differences in these status, requested DNR-CCA, no intubation status. is HCPOA, living will in place. Advanced Care Planning Face to Face Time: 16 minutes. Code Visit OBSV E&M: 19389 Subsequent observation care L3 Procedures: 99444 Advncd Care Plan 30 Min
--- NOTE | 2018-12-19 15:30 | CASEMGMT ---
Social Work Note CASH received message from Erica stating she received pre-cert for pt to discharge to TCU today. CASH met with pt, pt's and pt's daughter Gustavo. CASH explained that TCU is able to accept pt and pre-cert has been obtained and pt is able to discharge today. CASH explained that once pt is on TCU, a SW will be available to assist with discharge planning from TCU. Pt's asked if pt would be able to return home from TCU. CASH explained that on TCU there will be weekly family care meetings where family can come in and meet with the care team at TCU to discuss recommendations for pt. CASH explained that if care team at TCU and pt's family agree and are comfortable with pt returning home at discharge compared to fpc care, that can be option. CASH encouraged pt's family to discuss what the discharge plans will be together once pt gets to TCU and to see how pt progresses with PT/OT. Pt, pt's and pt's daughter state understanding. CASH called CASH Bermudez on TCU and updated her on pt's case. Physician, Charge nurse and social secretary updated on discharge to TCU today. Plan: Discharge to TCU today Heydi Verdugo DIE HARDENER, FORESTRY AIDE
[2018-12-19 16:55] VITALS: BP 129/61; PULSE 64; RESP 16; TEMP 36.2; O2SAT 95
== END 2018-12-19 17:30 | disposition skilled nursing facility (03) ==
LOC: ED 16:28 → MS2 21:30
PROVIDERS: Admitting Provider Hospitalist; Emergency Provider Emergency Medicine; Family Provider Family Medicine; PCP Family Medicine; Visit Provider Family Medicine
DX: S00.03XA Contusion of scalp, initial encounter (principal); W01.0XXA Fall on same level from slipping, tripping and stumbling without subsequent striking against object, initial encounter; Z91.81 History of falling; Y93.89 Activity, other specified; Y92.9 Unspecified place or not applicable; I11.0 Hypertensive heart disease with heart failure; I50.22 Chronic systolic (congestive) heart failure; E78.5 Hyperlipidemia, unspecified; E03.9 Hypothyroidism, unspecified; I48.2 Chronic atrial fibrillation; Z79.01 Long term (current) use of anticoagulants; Z66 Do not resuscitate; I25.10 Atherosclerotic heart disease of native coronary artery without angina pectoris; E87.6 Hypokalemia; R62.7 Adult failure to thrive; Z79.899 Other long term (current) drug therapy; Z95.1 Presence of aortocoronary bypass graft; I42.9 Cardiomyopathy, unspecified; I25.2 Old myocardial infarction; F41.9 Anxiety disorder, unspecified; K21.9 Gastro-esophageal reflux disease without esophagitis; G47.33 Obstructive sleep apnea (adult) (pediatric); S16.1XXA Strain of muscle, fascia and tendon at neck level, initial encounter; M70.21 Olecranon bursitis, right elbow; R29.6 Repeated falls; Z95.810 Presence of automatic (implantable) cardiac defibrillator; Z87.891 Personal history of nicotine dependence; D50.9 Iron deficiency anemia, unspecified; S50.311A Abrasion of right elbow, initial encounter; S80.812A Abrasion, left lower leg, initial encounter; S80.811A Abrasion, right lower leg, initial encounter; I69.354 Hemiplegia and hemiparesis following cerebral infarction affecting left non-dominant side; I42.8 Other cardiomyopathies
CPT/HCPCS: 36415; 70450; 72100; 72125; 73080; 80048; 81001; 83735; 84100; 84443; 85025; 85610; 87077; 87086; 87088; 96361; 96374; 96375; 97162; 97166; 99218; 99282; J7030; A4216; G0378; J2405

== ENCOUNTER 2018-12-19 17:55 | Inpatient (IN) | payer MEDICARE, SELFPAY ==
[2018-12-18 21:57] VITALS: BMI 25.0
[2018-12-19 18:10] VITALS: BP 145/48; PULSE 65; RESP 18; TEMP 35.8; O2SAT 93
--- NOTE | 2018-12-19 18:10 | NURSING ---
PT admitted to rm 21 from ms2 via wheelchair. Patient oriented to room and call light system explained.
--- NOTE | 2018-12-19 20:57 | PCM.HP.STD ---
Problem List (1) Fall Status: Acute (2) Debility Status: Acute (3) Atrial fibrillation Status: Chronic (4) Coronary artery disease Status: Chronic (5) Depression Status: Chronic (6) Chronic diastolic heart failure Status: Chronic (7) CVA (cerebral vascular accident) Status: Chronic (8) Hypertension Status: Chronic (9) Hyperlipidemia Status: Chronic History of Present Illness Date of Admission: 12/19/18 Chief Complaint: Here for rehabilitation, strengthening, prior to disposition determination. The patient is a 78 year old Female with below past medical history presented to [facility] 12/18/2018 with fall. 12/14/2018 X-ray left knee negative. 12/18/2018 CT head showed chronic involutional changes of brain. Left high parietal soft tissue swelling. 12/18/2018 CT cervical spine negative for trauma, mild degenerative changes. 12/18/2018 X-ray lumbar spine degenerative changes. 12/18/2018 X-ray right elbow negative. Fell, neck pain, back pain, right elbow pain. Gait difficulty for some time, multiple falls. Hemoglobin 11.2, Hematocrit 34.6, K 3.3, BUN 25, Cr 1.09. Fentanyl, Zofran IV given. 12/18/2018 Admit to Hospital. PT/OT. Gentle IV fluids. K repletion. 12/19/2018 Admit to TCU with debility, here for rehabilitation, strengthening, prior to disposition determination. Past Medical History Past Medical History (Chronic Problems): Chronic Problems (Last Reviewed 08/11/18 @ 15:01 by Rylan Kruse MD) Atrial fibrillation (Chronic) Coronary artery disease (Chronic) Depression (Chronic) Non-ischemic cardiomyopathy (Chronic) Syncope (Chronic) Chronic diastolic heart failure (Chronic) SA node dysfunction (Chronic) Old non-ST elevation myocardial infarction (NSTEMI) (Chronic) CVA (cerebral vascular accident) (Chronic) Atherosclerosis of coronary artery of [place] heart without angina pectoris (Chronic) CABG x 1 BRITO-LAD 04/22/2014 H/O coronary artery bypass surgery (Chronic 04/22/14) CABG x 1 BRITO-LAD 04/22/2014 @ [facility] Presence of cardiac pacemaker (Chronic 04/25/14) @ [facility] 04/25/14 RA Lead Revision 04/26/14 Chronic atrial fibrillation (Chronic) Hypertension (Chronic) Hyperlipidemia (Chronic) Medical History: Medical History (Last Reviewed 08/11/18 @ 15:01 by Rylan Kruse MD) Chronic diastolic heart failure (Chronic) I50.32 SA node dysfunction (Chronic) I49.5 Old non-ST elevation myocardial infarction (NSTEMI) (Chronic) I25.2 CVA (cerebral vascular accident) (Chronic) I63.9 Atherosclerosis of coronary artery of [place] heart without angina pectoris (Chronic) I25.10 CABG x 1 BRITO-LAD 04/22/2014 Chronic atrial fibrillation (Chronic) I48.2 Hypertension (Chronic) I10 Hyperlipidemia (Chronic) E78.5 Anemia D64.9 Anxiety F41.9 GERD (gastroesophageal reflux disease) K21.9 GI bleed K92.2 Hiatal hernia K44.9 Hypothyroidism E03.9 Liver cyst K76.89 Obstructive sleep apnea G47.33 Allergies atorvastatin [From Lipitor] Allergy (Verified 12/18/18 15:55) Unknown lisinopril Allergy (Verified 12/18/18 15:55) Unknown Home Medications: Ambulatory Orders Medication Instructions Recorded Fenofibrate [Lofibra] 160 mg PO DAILY 11/21/13 Levothyroxine [Synthroid] 50 mcg PO DAILY 11/21/13 Ezetimibe [Zetia] 10 mg PO QHS 09/18/16 Potassium Chloride [Klor-Con M20] 20 meq PO DAILY 09/18/16 gabapentin 300 mg capsule 600 mg PO BID cap 04/22/18 Ergocalciferol (Vitamin D2) 50,000 unit PO SA 11/12/18 [Vitamin D2] Gabapentin [Neurontin] 300 mg PO LUNCH 11/12/18 Carbamazepine 100 mg PO TID 12/18/18 Aspirin [Aspirin, Baby] 81 mg PO DAILY@0800 12/19/18 Escitalopram Oxalate [Lexapro] 20 mg PO DAILY 12/19/18 Furosemide [Lasix] 20 mg PO DAILY 12/19/18 Hydrocodone Bitart/Apap 5-325 1 - 2 tab PO Q6H PRN PRN 4 Days 12/19/18 [[place] 5/325] #20 tab Iron Poly/Vit C [Niferex-150] 150 mg PO DAILYCM 12/19/18 Losartan Potassium [Cozaar] 50 mg PO BID 12/19/18 Pantoprazole Sodium [Protonix] 40 mg PO DAILY 12/19/18 Surgical History: Surgical History (Last Reviewed 08/11/18 @ 15:01 by Rylan Kruse MD) H/O coronary artery bypass surgery (Chronic) Onset Date: 04/22/14 Z95.1 CABG x 1 BRITO-LAD 04/22/[address] [facility] Presence of cardiac pacemaker (Chronic) Onset Date: 04/25/14 Z95.[address] [facility] 04/25/14 RA Lead Revision 04/26/14 History of left heart catheterization Onset Date: 02/27/15 Z98.890 04/16/[address] [facility] and 02/27/2015 @ [facility] Surgical History: cataract, coronary bypass surgery - x 1., pacemaker implantation, - - Hemorrhoidectomy. 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 Lives: Spouse/ Significant Other Smoking Status: Former smoker Tobacco Use: Non-smoker Alcohol: None Drugs: None - *Family History Paternal Family History: Family History (Last Reviewed 08/11/18 @ 15:01 by Rylan Kruse MD) Father CAD (coronary artery disease) Sister CAD (coronary artery disease) Myocardial infarction Hypertension History Items: No pertinent history Maternal Family History: Family History (Last Reviewed 08/11/18 @ 15:01 by Rylan Kruse MD) Father CAD (coronary artery disease) Sister CAD (coronary artery disease) Myocardial infarction Hypertension History Items: Heart Disease, Hypertension Review of Systems Constitutional: Denies: Chills, Fever, Weight Change HEENT: Denies: Head Aches, Sinus Congestion, Sinus Drainage Cardiovascular: Denies: Chest Pain, Palpitations Respiratory: Denies: Cough, Shortness of breath at rest, Sputum production Gastrointestinal: Denies: Abdominal Pain, Nausea, Vomiting Genitourinary: Denies: Dysuria Musculoskeletal: Denies: Joint Pain, Joint Tenderness Skin: Denies: Rash, Wounds Neurological: Denies: Numbness, Tingling, Focal weakness Psychiatric: Denies: Anxiety, Depression, Homicidal Ideations, Suicidal Ideations Hematologic/ Lymphatic: Denies: Easy Bruising, Easy Bleeding VTE Information - Inpt Only VTE Present on Admission: No VTE Mechan Device Prophylaxis: Knee High LUIS FELIPE Hose VTE Pharm Prophylaxis ordered?: No Reason prophylaxis not ordered:: Treatment Not Indicated Patient Problems: Active and Suspected Problems (Last Reviewed 08/11/18 @ 15:01 by Rylan Kruse MD) Fall (Acute) Debility (Acute) - Physical Exam General: Alert, Oriented x3, Cooperative HEENT: Atraumatic, PERRLA, EOMI, Normocephalic Neck: Supple, No JVD, Negative Carotid Bruits Lungs: Clear to auscultation, Normal air movement Cardiovascular: Regular rate, No murmurs Abdomen: Bowel Sounds Present, Soft, Non Tender Extremities: No edema, Capillary Refill Less than 3 Seconds Skin: No rashes, No breakdown Musculoskeletal: No Tenderness to Palpation of Joints or Extremities Neurological: Cranial nerves II-XII grossly intact Psych/Mental Status: Normal Affect, Appropriate Vital Signs Temp Pulse Resp BP Pulse Ox 96.5 F L 65 18 145/48 H 93 12/19/18 18:10 12/19/18 18:10 12/19/18 18:10 12/19/18 18:10 12/19/18 18:10 Oxygen Delivery Method Room Air Body Mass Index (BMI) 25.0 Finger Stick Blood Glucose 79 Assessment/Plan All Active Problems (Last Reviewed 08/11/18 @ 15:01 by Rylan Kruse MD) Fall (Acute) Debility (Acute) 78 year old female with below past medical history hospitalized for fall, debility, gait difficulty admitted to TCU with debility, here for rehabilitation, strengthening, prior to disposition determination. Debility - PT/OT. Dysphagia - ST. Pain - [place] 5/325MG 1-2 tablet Q6H PRN moderate to severe pain. Bowel - Miralax 17GM daily, Senna/colace 1 tablet BID, Dulcolax 10MG PO daily PRN. Pneumonia vaccination - Administer Prevnar 13 and/or Pneumovax 23 as necessary. DVT prophylaxis - Not necessary, already on Eliquis. Neuropathic pain - Carbamazepine 100MG TID, Gabapentin 600MG, 300MG, 600MG. Vitamin D deficiency - D2 50,000 units per week. Depression - Lexapro 20MG daily, resident doing well with chronic chcf use, GDR clinically contraindicated. Hyperlipidemia - Atorvastatin intolerable, continue Zetia 10MG QHS, Fenofibrate 145MG daily. Edema - Lasix 20MG daily. Iron deficiency anemia - Ferrex 150MG daily. Hypothyroidism - Levothyroxine 50MCG daily. Hypertension - Losartan 50MG BID. GERD - Pantoprazole 40MG daily. Hypokalemia - K-Dur 20MEQ daily.
--- NOTE | 2018-12-19 21:01 | HP.PCM_ITS ---
Problem List (1) Fall Status: Acute (2) Debility Status: Acute (3) Atrial fibrillation Status: Chronic (4) Coronary artery disease Status: Chronic (5) Depression Status: Chronic (6) Chronic diastolic heart failure Status: Chronic (7) CVA (cerebral vascular accident) Status: Chronic (8) Hypertension Status: Chronic (9) Hyperlipidemia Status: Chronic History of Present Illness Date of Admission: 12/19/18 Chief Complaint: Here for rehabilitation, strengthening, prior to disposition determination. The patient is a 78 year old Female with below past medical history presented to [facility] 12/18/2018 with fall. 12/14/2018 X-ray left knee negative. 12/18/2018 CT head showed chronic involutional changes of brain. Left high parietal soft tissue swelling. 12/18/2018 CT cervical spine negative for trauma, mild degenerative changes. 12/18/2018 X-ray lumbar spine degenerative changes. 12/18/2018 X-ray right elbow negative. Fell, neck pain, back pain, right elbow pain. Gait difficulty for some time, multiple falls. Hemoglobin 11.2, Hematocrit 34.6, K 3.3, BUN 25, Cr 1.09. Fentanyl, Zofran IV given. 12/18/2018 Admit to Hospital. PT/OT. Gentle IV fluids. K repletion. 12/19/2018 Admit to TCU with debility, here for rehabilitation, strengthening, prior to disposition determination. Past Medical History Past Medical History (Chronic Problems): Chronic Problems (Last Reviewed 08/11/18 @ 15:01 by Rylan Kruse MD) Atrial fibrillation (Chronic) Coronary artery disease (Chronic) Depression (Chronic) Non-ischemic cardiomyopathy (Chronic) Syncope (Chronic) Chronic diastolic heart failure (Chronic) SA node dysfunction (Chronic) Old non-ST elevation myocardial infarction (NSTEMI) (Chronic) CVA (cerebral vascular accident) (Chronic) Atherosclerosis of coronary artery of [place] heart without angina pectoris (Chronic) CABG x 1 BRITO-LAD 04/22/2014 H/O coronary artery bypass surgery (Chronic 04/22/14) CABG x 1 BRITO-LAD 04/22/2014 @ [facility] Presence of cardiac pacemaker (Chronic 04/25/14) @ [facility] 04/25/14 RA Lead Revision 04/26/14 Chronic atrial fibrillation (Chronic) Hypertension (Chronic) Hyperlipidemia (Chronic) Medical History: Medical History (Last Reviewed 08/11/18 @ 15:01 by Rylan Kruse MD) Chronic diastolic heart failure (Chronic) I50.32 SA node dysfunction (Chronic) I49.5 Old non-ST elevation myocardial infarction (NSTEMI) (Chronic) I25.2 CVA (cerebral vascular accident) (Chronic) I63.9 Atherosclerosis of coronary artery of [place] heart without angina pectoris (Chronic) I25.10 CABG x 1 BRITO-LAD 04/22/2014 Chronic atrial fibrillation (Chronic) I48.2 Hypertension (Chronic) I10 Hyperlipidemia (Chronic) E78.5 Anemia D64.9 Anxiety F41.9 GERD (gastroesophageal reflux disease) K21.9 GI bleed K92.2 Hiatal hernia K44.9 Hypothyroidism E03.9 Liver cyst K76.89 Obstructive sleep apnea G47.33 Allergies atorvastatin [From Lipitor] Allergy (Verified 12/18/18 15:55) Unknown lisinopril Allergy (Verified 12/18/18 15:55) Unknown Home Medications: Ambulatory Orders Medication Instructions Recorded Fenofibrate [Lofibra] 160 mg PO DAILY 11/21/13 Levothyroxine [Synthroid] 50 mcg PO DAILY 11/21/13 Ezetimibe [Zetia] 10 mg PO QHS 09/18/16 Potassium Chloride [Klor-Con M20] 20 meq PO DAILY 09/18/16 gabapentin 300 mg capsule 600 mg PO BID cap 04/22/18 Ergocalciferol (Vitamin D2) 50,000 unit PO SA 11/12/18 [Vitamin D2] Gabapentin [Neurontin] 300 mg PO LUNCH 11/12/18 Carbamazepine 100 mg PO TID 12/18/18 Aspirin [Aspirin, Baby] 81 mg PO DAILY@0800 12/19/18 Escitalopram Oxalate [Lexapro] 20 mg PO DAILY 12/19/18 Furosemide [Lasix] 20 mg PO DAILY 12/19/18 Hydrocodone Bitart/Apap 5-325 1 - 2 tab PO Q6H PRN PRN 4 Days 12/19/18 [[place] 5/325] #20 tab Iron Poly/Vit C [Niferex-150] 150 mg PO DAILYCM 12/19/18 Losartan Potassium [Cozaar] 50 mg PO BID 12/19/18 Pantoprazole Sodium [Protonix] 40 mg PO DAILY 12/19/18 Surgical History: Surgical History (Last Reviewed 08/11/18 @ 15:01 by Rylan Kruse MD) H/O coronary artery bypass surgery (Chronic) Onset Date: 04/22/14 Z95.1 CABG x 1 BRITO-LAD 04/22/2014 @ [facility] Presence of cardiac pacemaker (Chronic) Onset Date: 04/25/14 Z95.0 @ [facility] 04/25/14 RA Lead Revision 04/26/14 History of left heart catheterization Onset Date: 02/27/15 Z98.890 04/16/14 @ [facility] and 02/27/2015 @ [facility] Surgical History: cataract, coronary bypass surgery - x 1., pacemaker implantation, - - Hemorrhoidectomy. 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 Lives: Spouse/ Significant Other Smoking Status: Former smoker Tobacco Use: Non-smoker Alcohol: None Drugs: None - *Family History Paternal Family History: Family History (Last Reviewed 08/11/18 @ 15:01 by Rylan Kruse MD) Father CAD (coronary artery disease) Sister CAD (coronary artery disease) Myocardial infarction Hypertension History Items: No pertinent history Maternal Family History: Family History (Last Reviewed 08/11/18 @ 15:01 by Rylan Kruse MD) Father CAD (coronary artery disease) Sister CAD (coronary artery disease) Myocardial infarction Hypertension History Items: Heart Disease, Hypertension Review of Systems Constitutional: Denies: Chills, Fever, Weight Change HEENT: Denies: Head Aches, Sinus Congestion, Sinus Drainage Cardiovascular: Denies: Chest Pain, Palpitations Respiratory: Denies: Cough, Shortness of breath at rest, Sputum production Gastrointestinal: Denies: Abdominal Pain, Nausea, Vomiting Genitourinary: Denies: Dysuria Musculoskeletal: Denies: Joint Pain, Joint Tenderness Skin: Denies: Rash, Wounds Neurological: Denies: Numbness, Tingling, Focal weakness Psychiatric: Denies: Anxiety, Depression, Homicidal Ideations, Suicidal Ideations Hematologic/ Lymphatic: Denies: Easy Bruising, Easy Bleeding VTE Information - Inpt Only VTE Present on Admission: No VTE Mechan Device Prophylaxis: Knee High LUIS FELIPE Hose VTE Pharm Prophylaxis ordered?: No Reason prophylaxis not ordered:: Treatment Not Indicated Patient Problems: Active and Suspected Problems (Last Reviewed 08/11/18 @ 15:01 by Rylan Kruse MD) Fall (Acute) Debility (Acute) - Physical Exam General: Alert, Oriented x3, Cooperative HEENT: Atraumatic, PERRLA, EOMI, Normocephalic Neck: Supple, No JVD, Negative Carotid Bruits Lungs: Clear to auscultation, Normal air movement Cardiovascular: Regular rate, No murmurs Abdomen: Bowel Sounds Present, Soft, Non Tender Extremities: No edema, Capillary Refill Less than 3 Seconds Skin: No rashes, No breakdown Musculoskeletal: No Tenderness to Palpation of Joints or Extremities Neurological: Cranial nerves II-XII grossly intact Psych/Mental Status: Normal Affect, Appropriate Vital Signs Temp Pulse Resp BP Pulse Ox 96.5 F L 65 18 145/48 H 93 12/19/18 18:10 12/19/18 18:10 12/19/18 18:10 12/19/18 18:10 12/19/18 18:10 Oxygen Delivery Method Room Air Body Mass Index (BMI) 25.0 Finger Stick Blood Glucose 79 Assessment/Plan All Active Problems (Last Reviewed 08/11/18 @ 15:01 by Rylan Kruse MD) Fall (Acute) Debility (Acute) 78 year old female with below past medical history hospitalized for fall, debility, gait difficulty admitted to TCU with debility, here for rehabilitation, strengthening, prior to disposition determination. * Debility - PT/OT. * Dysphagia - ST. * Pain - [place] 5/325MG 1-2 tablet Q6H PRN moderate to severe pain. * Bowel - Miralax 17GM daily, Senna/colace 1 tablet BID, Dulcolax 10MG PO daily PRN. * Pneumonia vaccination - Administer Prevnar 13 and/or Pneumovax 23 as necessary. * DVT prophylaxis - Not necessary, already on Eliquis. * Neuropathic pain - Carbamazepine 100MG TID, Gabapentin 600MG, 300MG, 600MG. * Vitamin D deficiency - D2 50,000 units per week. * Depression - Lexapro 20MG daily, resident doing well with chronic terminal manager use, GDR clinically contraindicated. * Hyperlipidemia - Atorvastatin intolerable, continue Zetia 10MG QHS, Fenofibrate 145MG daily. * Edema - Lasix 20MG daily. * Iron deficiency anemia - Ferrex 150MG daily. * Hypothyroidism - Levothyroxine 50MCG daily. * Hypertension - Losartan 50MG BID. * GERD - Pantoprazole 40MG daily. * Hypokalemia - K-Dur 20MEQ daily.
--- NOTE | 2018-12-19 21:04 | NURSING ---
Daughter concerned about patient being taken off of her Eliquis and put on 81 mg aspirin and her high risk of strokes. Dr. Priest notified of this orders given to d/c 81 mg baby aspirin and to add Eliquis 5mg BID. Daughter aware of new orders.
[2018-12-19] MEDS: Ezetimibe 10 MG Tablet PO (22:22)
[2018-12-19 22:24] VITALS: BMI 25.6
[2018-12-19 22:53] VITALS: BMI 25.6
--- NOTE | 2018-12-19 23:45 | NURSING ---
Code status discussed with Laura Malik, daughter/POA and patient. Request to be DNRCC-A. Pt and POA are requesting intubation only for pneumonia. Purple bracelet applied.
[2018-12-20] MEDS: Menthol/Lanolin/Calamine/Znox 113 GM Tube 1 APPLIC TOPICAL ×2 (05:18→21:22)
[2018-12-20] MEDS: Furosemide 20 MG Tablet PO (05:19)
[2018-12-20] MEDS: Losartan Potassium 50 MG Tablet PO ×2 (05:19→16:50)
[2018-12-20] MEDS: Levothyroxine 50 MCG Tablet PO (05:19)
[2018-12-20] MEDS: Escitalopram Oxalate 20 MG Tablet PO (05:19)
[2018-12-20] MEDS: Pantoprazole Sodium 40 MG Tablet PO (05:19)
[2018-12-20] MEDS: APIXABAN 5 MG TABLET PO ×2 (05:20→16:51)
[2018-12-20] MEDS: Senna/Docusate Sodium 1 Tablet PO ×2 (05:20→16:51)
[2018-12-20 05:51] LABS: Absolute Lymphocyte Count 0.97 X10^3/ul (0.83-4.51); Absolute Neutrophil Count 2.3 X10^3/uL (2.0-7.7); Basophil# 0.04 X10^3/uL; Eosinophil# 0.22 X10^3/uL; Eosinophils% 5.4 % (0-5); Hematocrit 33.7 % (37-47); Hemoglobin 11.1 g/dl (12.0-15.0); Lymphocyte # 0.97 X10^3/ul (4.0); Lymphocyte % 23.7 % (19-41); Mean Corp Hgb Conc 32.9 g/gl (32-36); Mean Corpuscular Hgb 31.4 pg (27.0-32.0); Mean Corpuscular Volume 95.5 fL (81-99); Mean Platelet Vol. 9.9 fl (6.2-12.0); Monocyte# 0.52 X10^3/uL; Monocyte% 12.7 % (0-10); Neutrophil # 2.34 X10^3/uL (2.7-7.7); Platelet Count 254 K/mm3 (150-450); RBC Distribution Width CV 12.7 % (11.6-14.6); RBC Distribution Width SD 42.8 fl (35.1-43.9); Red Blood Count 3.53 M/mm3 (4.2-5.4); White Blood Count 4.1 K/mm3 (4.4-11.0)
[2018-12-20 05:52] LABS: POSITIVE COUNT NO; POSITIVE DIFFERENTIAL NO; POSITIVE MORPHOLOGY NO
[2018-12-20 06:03] LABS: Anion Gap 7 (5-15); BUN 22 mg/dL (7-18); BUN/Creat Ratio 18.8 RATIO (10-20); Calcium,Total 8.8 mg/dL (8.5-10.1); Chloride 108 mmol/L (98-107); Creatinine, Serum 1.17 mg/dL (0.55-1.02); EST Glomerular Filtration Rate 47 mL/min (>60); Est Glom Filt Rate - Afr Amer 57 mL/min (>60); Estimated Creatinine Clearance 35.08 ml/min; Glucose 101 mg/dL (74-106); Potassium 3.8 mmol/L (3.5-5.1); Sodium Level 142 mmol/L (136-145)
[2018-12-20] MEDS: Iron Polysaccharide Complex 150 MG CAPSULE PO (08:35)
[2018-12-20] MEDS: carBAMazepine 200 MG Tablet 100 MG PO ×3 (08:35→16:50)
[2018-12-20] MEDS: Gabapentin 300 MG Capsule 600 MG PO ×2 (08:35→16:50)
[2018-12-20] MEDS: Fenofibrate 145 MG Tablet PO (08:36)
[2018-12-20 11:03] VITALS: O2SAT 94
[2018-12-20] MEDS: Tuberculin,Purif.prot.deriv. 50 TU/ML Vial 5 ML ID (11:07)
[2018-12-20] MEDS: Gabapentin 300 MG Capsule PO (12:03)
[2018-12-20 16:00] VITALS: BP 153/41; PULSE 66; RESP 18; TEMP 36.6; O2SAT 91
--- NOTE | 2018-12-20 16:18 | PCM.PN.RX ---
<JooJuan valdez - Last Filed: 12/20/18 16:18> Progress Note - Pharmacy Subjective: TCU Admission Objective: Allergies atorvastatin [From Lipitor] Allergy (Verified 12/18/18 15:55) Unknown lisinopril Allergy (Verified 12/18/18 15:55) Unknown Current Medications Generic Name Dose Route Start Last Admin Trade Name Freq PRN Reason Stop Dose Admin Hydrocodone Bitart/Acetaminophen 1 - 2 tablet 12/19/18 18:14 [place] 5mg-325mg PO Q6H PRN PRN Moderate-severe pain Apixaban 5 mg 12/20/18 06:00 12/20/18 05:20 Eliquis PO 5 mg BID [facility] Administration Bisacodyl 10 mg 12/19/18 18:25 Dulcolax PO DAILY PRN Constipation Calamine/Phenol 1 applic 12/20/18 06:00 12/20/18 05:18 Calmoseptine Ointment TOPICAL 1 applicatio 0600,2200 [facility] Administration Protocol Carbamazepine 100 mg 12/20/18 07:45 12/20/18 12:03 Tegretol PO 100 mg TIDCM [facility] Administration Ezetimibe 10 mg 12/19/18 22:00 12/19/18 22:22 Zetia PO 10 mg QHS [facility] Administration Ergocalciferol 50,000 unit 12/23/18 08:00 Vitamin D PO SA [facility] Escitalopram Oxalate 20 mg 12/20/18 06:00 12/20/18 05:19 Lexapro PO 20 mg DAILY [facility] Administration Fenofibrate 145 mg 12/20/18 08:00 12/20/18 08:36 Tricor PO 145 mg DAILYCM [facility] Administration Furosemide 20 mg 12/20/18 06:00 12/20/18 05:19 Lasix PO 20 mg DAILY [facility] Administration Gabapentin 600 mg 12/20/18 08:00 12/20/18 08:35 Neurontin PO 600 mg BIDCM [facility] Administration Gabapentin 300 mg 12/20/18 12:00 12/20/18 12:03 Neurontin PO 300 mg LUNCH [facility] Administration Levothyroxine Sodium 50 mcg 12/20/18 06:00 12/20/18 05:19 Synthroid PO 50 mcg DAILY [facility] Administration Losartan Potassium 50 mg 12/20/18 06:00 12/20/18 05:19 Cozaar PO 50 mg BID [facility] Administration Multi-Ingredient Cream 1 applic 12/20/18 22:00 Eucerin TOPICAL 2200 [facility] Protocol Pantoprazole Sodium 40 mg 12/20/18 06:00 12/20/18 05:19 Protonix PO 40 mg DAILY [facility] Administration Polyethylene Glycol 17 gm 12/20/18 06:00 12/20/18 05:19 Miralax PO Not Given DAILY [facility] Polysaccharide Iron Complex 150 mg 12/20/18 08:00 12/20/18 08:35 Ferrex 150 PO 150 mg DAILYCM [facility] Administration Potassium Chloride 20 meq 12/20/18 08:00 12/20/18 08:35 K-Dur PO 20 meq DAILYCM [facility] Administration Senna/Docusate Sodium 1 tablet 12/20/18 06:00 12/20/18 05:20 Senokot-S, Lyssa-Colace PO 1 tablet BID [facility] Administration Tuberculin PPD 5 tu 12/27/18 10:00 Tubersol, Aplisol, Ppd ID 12/27/18 10:01 X1 ONE Problem List (Last Reviewed 08/11/18 @ 15:01 by Rylan Kruse MD) Fall (Acute) Debility (Acute) Atrial fibrillation (Chronic) Coronary artery disease (Chronic) Depression (Chronic) Vital Signs Temp Pulse Resp BP Pulse Ox 96.5 F L 65 18 145/48 H 94 12/19/18 18:10 12/19/18 18:10 12/19/18 18:10 12/19/18 18:10 12/20/18 11:03 Oxygen Delivery Method Room Air Weight: 69.808 kg Body Mass Index (BMI) 25.6 Finger Stick Blood Glucose 79 Sodium 142 mmol/L (136-145) 12/20/18 05:25 Potassium 3.8 mmol/L (3.5-5.1) 12/20/18 05:25 Chloride 108 mmol/L (98-107) H 12/20/18 05:25 Carbon Dioxide 27.0 mmol/L (21.0-32.0) 12/20/18 05:25 Anion Gap 7 (5-15) 12/20/18 05:25 BUN 22 mg/dL (7-18) H 12/20/18 05:25 Creatinine 1.17 mg/dL (0.55-1.02) H 12/20/18 05:25 Est GFR (MDRD) Af Amer 57 mL/min (>60) L 12/20/18 05:25 Est GFR (MDRD) Non-Af 47 mL/min (>60) L 12/20/18 05:25 BUN/Creatinine Ratio 18.8 RATIO (10-20) 12/20/18 05:25 Glucose 101 mg/dL (74-106) 12/20/18 05:25 Assessment/Plan: 1) Pain Gabapentin, carbamazepine, hydrocodone/APAP for moderate/severe pain. Continue to monitor daily pain scores, prn medication use. 2) AFib/Stroke Apixaban. Continue to monitor BP/HR, s/s bleeding/clot. 3) Edema Furosemide/KCL. Continue to monitor swelling, electrolytes, renal function. 4) HLD Fenofibrate, ezetimibe. Continue to monitor lipids. 5) HTN Losartan. Continue to monitor BP/HR, renal function, electrolytes. 6) Hypothyroidism Levothyroxine daily. Continue to monitor s/s hyper/hypothyroidism. 7) GI Pantoprazole daily. Continue to monitor s/s GI distress. Psychotropic Medications: 8) Depression Escitalopram. Continue to monitor s/s depression. Unnecessary Medications: None Bowel Regimen: 9) Senna/s, PEG, prn bisacodyl. Continue to monitor prn medication use, for constipation/diarrhea. Date of Note:: 12/20/18 - Provider Comments Provider responsibility: Provider responsible to enter orders to implement recommendations <Keyur Priest Chi - Last Filed: 12/20/18 16:56> Progress Note - Pharmacy Subjective: [] Objective: Allergies atorvastatin [From Lipitor] Allergy (Verified 12/18/18 15:55) Unknown lisinopril Allergy (Verified 12/18/18 15:55) Unknown Current Medications Generic Name Dose Route Start Last Admin Trade Name Freq PRN Reason Stop Dose Admin Hydrocodone Bitart/Acetaminophen 1 - 2 tablet 12/19/18 18:14 [place] 5mg-325mg PO Q6H PRN PRN Moderate-severe pain Apixaban 5 mg 12/20/18 06:00 12/20/18 16:51 Eliquis PO 5 mg BID [facility] Administration Bisacodyl 10 mg 12/19/18 18:25 Dulcolax PO DAILY PRN Constipation Calamine/Phenol 1 applic 12/20/18 06:00 12/20/18 05:18 Calmoseptine Ointment TOPICAL 1 applicatio 0600,2200 [facility] Administration Protocol Carbamazepine 100 mg 12/20/18 07:45 12/20/18 16:50 Tegretol PO 100 mg TIDCM [facility] Administration Ezetimibe 10 mg 12/19/18 22:00 12/19/18 22:22 Zetia PO 10 mg QHS [facility] Administration Ergocalciferol 50,000 unit 12/23/18 08:00 Vitamin D PO [facility] Escitalopram Oxalate 20 mg 12/20/18 06:00 12/20/18 05:19 Lexapro PO 20 mg DAILY [facility] Administration Fenofibrate 145 mg 12/20/18 08:00 12/20/18 08:36 [facility] Administration Furosemide 20 mg 12/20/18 06:00 12/20/18 05:19 Lasix PO 20 mg DAILY [facility] Administration Gabapentin 600 mg 12/20/18 08:00 12/20/18 16:50 Neurontin PO 600 mg BIDCM [facility] Administration Gabapentin 300 mg 12/20/18 12:00 12/20/18 12:03 Neurontin PO 300 mg LUNCH [facility] Administration Levothyroxine Sodium 50 mcg 12/20/18 06:00 12/20/18 05:19 Synthroid PO 50 mcg DAILY [facility] Administration Losartan Potassium 50 mg 12/20/18 06:00 12/20/18 16:50 Cozaar PO 50 mg BID [facility] Administration Multi-Ingredient Cream 1 applic 12/20/18 22:00 Eucerin TOPICAL 2200 [facility] Protocol Pantoprazole Sodium 40 mg 12/20/18 06:00 12/20/18 05:19 Protonix PO 40 mg DAILY [facility] Administration Polyethylene Glycol 17 gm 12/20/18 06:00 12/20/18 05:19 Miralax PO Not Given DAILY [facility] Polysaccharide Iron Complex 150 mg 12/20/18 08:00 12/20/18 08:35 [facility] Administration Potassium Chloride 20 meq 12/20/18 08:00 12/20/18 08:35 K-Dur PO 20 meq DAILYCM [facility] Administration Senna/Docusate Sodium 1 tablet 12/20/18 06:00 12/20/18 16:51 Senokot-S, Lyssa-Colace PO 1 tablet BID [facility] Administration Tuberculin PPD 5 tu 12/27/18 10:00 Tubersol, Aplisol, Ppd ID 12/27/18 10:01 X1 ONE Problem List (Last Reviewed 08/11/18 @ 15:01 by Rylan Kruse MD) Fall (Acute) Debility (Acute) Atrial fibrillation (Chronic) Coronary artery disease (Chronic) Depression (Chronic) Vital Signs Temp Pulse Resp BP Pulse Ox 97.8 F 66 18 153/41 H 91 12/20/18 16:00 12/20/18 16:00 12/20/18 16:00 12/20/18 16:00 12/20/18 16:00 Oxygen Delivery Method Room Air Weight: 69.808 kg Body Mass Index (BMI) 25.6 Finger Stick Blood Glucose 79 Sodium 142 mmol/L (136-145) 12/20/18 05:25 Potassium 3.8 mmol/L (3.5-5.1) 12/20/18 05:25 Chloride 108 mmol/L (98-107) H 12/20/18 05:25 Carbon Dioxide 27.0 mmol/L (21.0-32.0) 12/20/18 05:25 Anion Gap 7 (5-15) 12/20/18 05:25 BUN 22 mg/dL (7-18) H 12/20/18 05:25 Creatinine 1.17 mg/dL (0.55-1.02) H 12/20/18 05:25 Est GFR (MDRD) Af Amer 57 mL/min (>60) L 12/20/18 05:25 Est GFR (MDRD) Non-Af 47 mL/min (>60) L 12/20/18 05:25 BUN/Creatinine Ratio 18.8 RATIO (10-20) 12/20/18 05:25 Glucose 101 mg/dL (74-106) 12/20/18 05:25 Assessment/Plan: Psychotropic Medications: Unnecessary Medications: Bowel Regimen: - Provider Comments Provider responsibility: Provider responsible to enter orders to implement recommendations Provider Comments to Recommendations by Pharmacy: Agree
--- NOTE | 2018-12-20 16:30 | PHA.CONS_ITS ---
<JooJuan valdez - Last Filed: 12/20/18 16:18> Progress Note - Pharmacy Subjective: TCU Admission Objective: Allergies atorvastatin [From Lipitor] Allergy (Verified 12/18/18 15:55) Unknown lisinopril Allergy (Verified 12/18/18 15:55) Unknown Current Medications Generic Name Dose Route Start Last Admin Trade Name Freq PRN Reason Stop Dose Admin Hydrocodone Bitart/Acetaminophen 1 - 2 tablet 12/19/18 18:14 [place] 5mg-325mg PO Q6H PRN PRN Moderate-severe pain Apixaban 5 mg 12/20/18 06:00 12/20/18 05:20 Eliquis PO 5 mg BID [facility] Administration Bisacodyl 10 mg 12/19/18 18:25 Dulcolax PO DAILY PRN Constipation Calamine/Phenol 1 applic 12/20/18 06:00 12/20/18 05:18 Calmoseptine Ointment TOPICAL 1 applicatio 0600,2200 [facility] Administration Protocol Carbamazepine 100 mg 12/20/18 07:45 12/20/18 12:03 Tegretol PO 100 mg TIDCM [facility] Administration Ezetimibe 10 mg 12/19/18 22:00 12/19/18 22:22 Zetia PO 10 mg QHS [facility] Administration Ergocalciferol 50,000 unit 12/23/18 08:00 Vitamin D PO SA [facility] Escitalopram Oxalate 20 mg 12/20/18 06:00 12/20/18 05:19 Lexapro PO 20 mg DAILY [facility] Administration Fenofibrate 145 mg 12/20/18 08:00 12/20/18 08:36 Tricor PO 145 mg DAILYCM [facility] Administration Furosemide 20 mg 12/20/18 06:00 12/20/18 05:19 Lasix PO 20 mg DAILY [facility] Administration Gabapentin 600 mg 12/20/18 08:00 12/20/18 08:35 Neurontin PO 600 mg BIDCM [facility] Administration Gabapentin 300 mg 12/20/18 12:00 12/20/18 12:03 Neurontin PO 300 mg LUNCH [facility] Administration Levothyroxine Sodium 50 mcg 12/20/18 06:00 12/20/18 05:19 Synthroid PO 50 mcg DAILY [facility] Administration Losartan Potassium 50 mg 12/20/18 06:00 12/20/18 05:19 Cozaar PO 50 mg BID [facility] Administration Multi-Ingredient Cream 1 applic 12/20/18 22:00 Eucerin TOPICAL 2200 [facility] Protocol Pantoprazole Sodium 40 mg 12/20/18 06:00 12/20/18 05:19 Protonix PO 40 mg DAILY [facility] Administration Polyethylene Glycol 17 gm 12/20/18 06:00 12/20/18 05:19 Miralax PO Not Given DAILY [facility] Polysaccharide Iron Complex 150 mg 12/20/18 08:00 12/20/18 08:35 Ferrex 150 PO 150 mg DAILYCM [facility] Administration Potassium Chloride 20 meq 12/20/18 08:00 12/20/18 08:35 K-Dur PO 20 meq DAILYCM [facility] Administration Senna/Docusate Sodium 1 tablet 12/20/18 06:00 12/20/18 05:20 Senokot-S, Lyssa-Colace PO 1 tablet BID [facility] Administration Tuberculin PPD 5 tu 12/27/18 10:00 Tubersol, Aplisol, Ppd ID 12/27/18 10:01 X1 ONE Problem List (Last Reviewed 08/11/18 @ 15:01 by Rylan Kruse MD) Fall (Acute) Debility (Acute) Atrial fibrillation (Chronic) Coronary artery disease (Chronic) Depression (Chronic) Vital Signs Temp Pulse Resp BP Pulse Ox 96.5 F L 65 18 145/48 H 94 12/19/18 18:10 12/19/18 18:10 12/19/18 18:10 12/19/18 18:10 12/20/18 11:03 Oxygen Delivery Method Room Air Weight: 69.808 kg Body Mass Index (BMI) 25.6 Finger Stick Blood Glucose 79 Sodium 142 mmol/L (136-145) 12/20/18 05:25 Potassium 3.8 mmol/L (3.5-5.1) 12/20/18 05:25 Chloride 108 mmol/L (98-107) H 12/20/18 05:25 Carbon Dioxide 27.0 mmol/L (21.0-32.0) 12/20/18 05:25 Anion Gap 7 (5-15) 12/20/18 05:25 BUN 22 mg/dL (7-18) H 12/20/18 05:25 Creatinine 1.17 mg/dL (0.55-1.02) H 12/20/18 05:25 Est GFR (MDRD) Af Amer 57 mL/min (>60) L 12/20/18 05:25 Est GFR (MDRD) Non-Af 47 mL/min (>60) L 12/20/18 05:25 BUN/Creatinine Ratio 18.8 RATIO (10-20) 12/20/18 05:25 Glucose 101 mg/dL (74-106) 12/20/18 05:25 Assessment/Plan: 1) Pain Gabapentin, carbamazepine, hydrocodone/APAP for moderate/severe pain. Continue to monitor daily pain scores, prn medication use. 2) AFib/Stroke Apixaban. Continue to monitor BP/HR, s/s bleeding/clot. 3) Edema Furosemide/KCL. Continue to monitor swelling, electrolytes, renal function. 4) HLD Fenofibrate, ezetimibe. Continue to monitor lipids. 5) HTN Losartan. Continue to monitor BP/HR, renal function, electrolytes. 6) Hypothyroidism Levothyroxine daily. Continue to monitor s/s hyper/hypothyroidism. 7) GI Pantoprazole daily. Continue to monitor s/s GI distress. Psychotropic Medications: 8) Depression Escitalopram. Continue to monitor s/s depression. Unnecessary Medications: None Bowel Regimen: 9) Senna/s, PEG, prn bisacodyl. Continue to monitor prn medication use, for constipation/diarrhea. Date of Note:: 12/20/18 - Provider Comments Provider responsibility: Provider responsible to enter orders to implement recommendations <Keyur Priest Chi - Last Filed: 12/20/18 16:56> Progress Note - Pharmacy Subjective: [] Objective: Allergies atorvastatin [From Lipitor] Allergy (Verified 12/18/18 15:55) Unknown lisinopril Allergy (Verified 12/18/18 15:55) Unknown Current Medications Generic Name Dose Route Start Last Admin Trade Name Freq PRN Reason Stop Dose Admin Hydrocodone Bitart/Acetaminophen 1 - 2 tablet 12/19/18 18:14 [place] 5mg-325mg PO Q6H PRN PRN Moderate-severe pain Apixaban 5 mg 12/20/18 06:00 12/20/18 16:51 Eliquis PO 5 mg BID [facility] Administration Bisacodyl 10 mg 12/19/18 18:25 Dulcolax PO DAILY PRN Constipation Calamine/Phenol 1 applic 12/20/18 06:00 12/20/18 05:18 Calmoseptine Ointment TOPICAL 1 applicatio 0600,2200 [facility] Administration Protocol Carbamazepine 100 mg 12/20/18 07:45 12/20/18 16:50 Tegretol PO 100 mg TIDCM [facility] Administration Ezetimibe 10 mg 12/19/18 22:00 12/19/18 22:22 Zetia PO 10 mg QHS [facility] Administration Ergocalciferol 50,000 unit 12/23/18 08:00 Vitamin D PO [facility] Escitalopram Oxalate 20 mg 12/20/18 06:00 12/20/18 05:19 Lexapro PO 20 mg DAILY [facility] Administration Fenofibrate 145 mg 12/20/18 08:00 12/20/18 08:36 [facility] Furosemide 20 mg 12/20/18 06:00 12/20/18 05:19 Lasix PO 20 mg DAILY [facility] Administration Gabapentin 600 mg 12/20/18 08:00 12/20/18 16:50 Neurontin PO 600 mg BIDCM [facility] Administration Gabapentin 300 mg 12/20/18 12:00 12/20/18 12:03 Neurontin PO 300 mg LUNCH [facility] Administration Levothyroxine Sodium 50 mcg 12/20/18 06:00 12/20/18 05:19 Synthroid PO 50 mcg DAILY [facility] Administration Losartan Potassium 50 mg 12/20/18 06:00 12/20/18 16:50 Cozaar PO 50 mg BID [facility] Administration Multi-Ingredient Cream 1 applic 12/20/18 22:00 Eucerin TOPICAL 2200 [facility] Protocol Pantoprazole Sodium 40 mg 12/20/18 06:00 12/20/18 05:19 Protonix PO 40 mg DAILY [facility] Administration Polyethylene Glycol 17 gm 12/20/18 06:00 12/20/18 05:19 Miralax PO Not Given DAILY [facility] Polysaccharide Iron Complex 150 mg 12/20/18 08:00 12/20/18 08:35 [facility]rex [facility] Administration Potassium Chloride 20 meq 12/20/18 08:00 12/20/18 08:35 K-Dur PO 20 meq DAILYCM [facility] Administration Senna/Docusate Sodium 1 tablet 12/20/18 06:00 12/20/18 16:51 Senokot-S, Lyssa-Colace PO 1 tablet BID [facility] Administration Tuberculin PPD 5 tu 12/27/18 10:00 Tubersol, Aplisol, Ppd ID 12/27/18 10:01 X1 ONE Problem List (Last Reviewed 08/11/18 @ 15:01 by Rylan Kruse MD) Fall (Acute) Debility (Acute) Atrial fibrillation (Chronic) Coronary artery disease (Chronic) Depression (Chronic) Vital Signs Temp Pulse Resp BP Pulse Ox 97.8 F 66 18 153/41 H 91 12/20/18 16:00 12/20/18 16:00 12/20/18 16:00 12/20/18 16:00 12/20/18 16:00 Oxygen Delivery Method Room Air Weight: 69.808 kg Body Mass Index (BMI) 25.6 Finger Stick Blood Glucose 79 Sodium 142 mmol/L (136-145) 12/20/18 05:25 Potassium 3.8 mmol/L (3.5-5.1) 12/20/18 05:25 Chloride 108 mmol/L (98-107) H 12/20/18 05:25 Carbon Dioxide 27.0 mmol/L (21.0-32.0) 12/20/18 05:25 Anion Gap 7 (5-15) 12/20/18 05:25 BUN 22 mg/dL (7-18) H 12/20/18 05:25 Creatinine 1.17 mg/dL (0.55-1.02) H 12/20/18 05:25 Est GFR (MDRD) Af Amer 57 mL/min (>60) L 12/20/18 05:25 Est GFR (MDRD) Non-Af 47 mL/min (>60) L 12/20/18 05:25 BUN/Creatinine Ratio 18.8 RATIO (10-20) 12/20/18 05:25 Glucose 101 mg/dL (74-106) 12/20/18 05:25 Assessment/Plan: Psychotropic Medications: Unnecessary Medications: Bowel Regimen: - Provider Comments Provider responsibility: Provider responsible to enter orders to implement recommendations Provider Comments to Recommendations by Pharmacy: Agree
[2018-12-20] MEDS: Ezetimibe 10 MG Tablet PO (21:22)
[2018-12-21] MEDS: Menthol/Lanolin/Calamine/Znox 113 GM Tube 1 APPLIC TOPICAL ×2 (06:27→21:15)
[2018-12-21] MEDS: Pantoprazole Sodium 40 MG Tablet PO (06:28)
[2018-12-21] MEDS: Senna/Docusate Sodium 1 Tablet PO ×2 (06:28→17:07)
[2018-12-21] MEDS: Escitalopram Oxalate 20 MG Tablet PO (06:28)
[2018-12-21] MEDS: Levothyroxine 50 MCG Tablet PO (06:28)
[2018-12-21] MEDS: Furosemide 20 MG Tablet PO (06:28)
[2018-12-21] MEDS: APIXABAN 5 MG TABLET PO ×2 (06:28→17:07)
[2018-12-21] MEDS: Losartan Potassium 50 MG Tablet PO ×2 (06:28→17:07)
[2018-12-21 06:55] VITALS: O2SAT 93
[2018-12-21] MEDS: carBAMazepine 200 MG Tablet 100 MG PO ×3 (09:52→17:07)
[2018-12-21] MEDS: Fenofibrate 145 MG Tablet PO (09:52)
[2018-12-21] MEDS: Iron Polysaccharide Complex 150 MG CAPSULE PO (09:53)
[2018-12-21] MEDS: Gabapentin 300 MG Capsule 600 MG PO ×2 (09:53→17:07)
[2018-12-21] MEDS: Gabapentin 300 MG Capsule PO (11:21)
[2018-12-21 16:00] VITALS: BP 137/58; PULSE 59; RESP 16; TEMP 37.1; O2SAT 90
--- NOTE | 2018-12-21 16:51 | CHAPLAIN ---
patient was sleeping and did not awaken when I spoke her name
[2018-12-21] MEDS: Ezetimibe 10 MG Tablet PO (21:16)
[2018-12-22] MEDS: APIXABAN 5 MG TABLET PO ×2 (05:43→16:54)
[2018-12-22] MEDS: Furosemide 20 MG Tablet PO (05:43)
[2018-12-22] MEDS: Pantoprazole Sodium 40 MG Tablet PO (05:43)
[2018-12-22] MEDS: Menthol/Lanolin/Calamine/Znox 113 GM Tube 1 APPLIC TOPICAL ×2 (05:43→20:57)
[2018-12-22] MEDS: Senna/Docusate Sodium 1 Tablet PO ×2 (05:43→16:54)
[2018-12-22] MEDS: Escitalopram Oxalate 20 MG Tablet PO (05:43)
[2018-12-22] MEDS: Losartan Potassium 50 MG Tablet PO ×2 (05:43→16:54)
[2018-12-22] MEDS: Levothyroxine 50 MCG Tablet PO (05:45)
[2018-12-22] MEDS: Fenofibrate 145 MG Tablet PO (08:08)
[2018-12-22] MEDS: carBAMazepine 200 MG Tablet 100 MG PO ×3 (08:08→16:54)
[2018-12-22] MEDS: Gabapentin 300 MG Capsule 600 MG PO ×2 (08:08→16:54)
[2018-12-22] MEDS: Iron Polysaccharide Complex 150 MG CAPSULE PO (08:09)
[2018-12-22] MEDS: Gabapentin 300 MG Capsule PO (11:09)
--- NOTE | 2018-12-22 15:00 | CHAPLAIN ---
Type of Pastoral Visit _x__ Initial Visit ___ Follow-up Visit ___ On-call Visit ___ General Patient Visit ___ Spiritual Assessment ___ Family Conference ___ Bereavement ___ Rapid Response ___ Code Blue ___ Other (describe below) Pastoral Care Referral From _x__ Patient _x__ Family ___ Nurse ___ Physician ___ Production Supervisor Trainee ___ Criminal Justice Faculty ___ Other (describe below) Sacrament/Intervention _x__ Active listening ___ Anointing ___ Methodist ___ Bereavement ___ Communion ___ Siobhan exploration ___ _x__ Life review _x__ Prayer ___ Reconciliation ___ Sacrament of Sick _x__ Supportive presence ___ Wedding ___ Other (describe below) Pastoral Comments
[2018-12-22 15:55] VITALS: BP 117/54; PULSE 60; RESP 16; TEMP 36.8; O2SAT 93
[2018-12-22 16:58] VITALS: O2SAT 92
[2018-12-22] MEDS: Ezetimibe 10 MG Tablet PO (20:56)
[2018-12-23] MEDS: Escitalopram Oxalate 20 MG Tablet PO (05:14)
[2018-12-23] MEDS: Senna/Docusate Sodium 1 Tablet PO ×2 (05:14→17:11)
[2018-12-23] MEDS: Furosemide 20 MG Tablet PO (05:14)
[2018-12-23] MEDS: Pantoprazole Sodium 40 MG Tablet PO (05:14)
[2018-12-23] MEDS: APIXABAN 5 MG TABLET PO ×2 (05:14→17:12)
[2018-12-23] MEDS: Levothyroxine 50 MCG Tablet PO (05:15)
[2018-12-23] MEDS: Polyethylene Glycol 3350 17 GM PACKET PO (05:15)
[2018-12-23] MEDS: Losartan Potassium 50 MG Tablet PO ×2 (05:16→17:12)
[2018-12-23] MEDS: Menthol/Lanolin/Calamine/Znox 113 GM Tube 1 APPLIC TOPICAL ×2 (05:21→20:04)
[2018-12-23] MEDS: Fenofibrate 145 MG Tablet PO (08:21)
[2018-12-23] MEDS: Iron Polysaccharide Complex 150 MG CAPSULE PO (08:21)
[2018-12-23] MEDS: carBAMazepine 200 MG Tablet 100 MG PO ×3 (08:21→17:11)
[2018-12-23] MEDS: Gabapentin 300 MG Capsule 600 MG PO ×2 (08:21→17:10)
[2018-12-23] MEDS: Gabapentin 300 MG Capsule PO (12:01)
[2018-12-23 15:42] VITALS: BP 110/47; PULSE 60; RESP 18; TEMP 36.3; O2SAT 91
[2018-12-23] MEDS: Ezetimibe 10 MG Tablet PO (20:01)
--- NOTE | 2018-12-23 21:20 | NURSING ---
Pt requesting eye drops for dryness and itching. Dr. Priest aware, new order for artificial tears. Will continue to monitor.
[2018-12-23] MEDS: Glycerin/Hypromellose/PEG400 15 ml Bottle 1 DRP EACH EYE (22:33)
[2018-12-24] MEDS: Polyethylene Glycol 3350 17 GM PACKET PO (04:57)
[2018-12-24] MEDS: Senna/Docusate Sodium 1 Tablet PO ×2 (04:57→17:47)
[2018-12-24] MEDS: Pantoprazole Sodium 40 MG Tablet PO (04:57)
[2018-12-24] MEDS: Escitalopram Oxalate 20 MG Tablet PO (04:58)
[2018-12-24] MEDS: APIXABAN 5 MG TABLET PO ×2 (04:58→17:47)
[2018-12-24] MEDS: Losartan Potassium 50 MG Tablet PO ×2 (04:58→17:47)
[2018-12-24] MEDS: Levothyroxine 50 MCG Tablet PO (04:58)
[2018-12-24] MEDS: Furosemide 20 MG Tablet PO (04:58)
[2018-12-24] MEDS: Menthol/Lanolin/Calamine/Znox 113 GM Tube 1 APPLIC TOPICAL ×2 (04:59→21:07)
[2018-12-24] MEDS: Gabapentin 300 MG Capsule 600 MG PO ×2 (08:57→17:46)
[2018-12-24] MEDS: Fenofibrate 145 MG Tablet PO (08:58)
[2018-12-24] MEDS: Iron Polysaccharide Complex 150 MG CAPSULE PO (08:58)
[2018-12-24] MEDS: carBAMazepine 200 MG Tablet 100 MG PO ×3 (08:58→17:47)
[2018-12-24] MEDS: Gabapentin 300 MG Capsule PO (11:57)
[2018-12-24 15:49] VITALS: BP 140/51; PULSE 60; RESP 18; TEMP 37.1; O2SAT 90
[2018-12-24] MEDS: Ezetimibe 10 MG Tablet PO (21:04)
[2018-12-24] MEDS: Glycerin/Hypromellose/PEG400 15 ml Bottle 1 DRP EACH EYE (21:05)
[2018-12-24 21:09] VITALS: PULSE 61; RESP 16; O2SAT 91
[2018-12-25] MEDS: Menthol/Lanolin/Calamine/Znox 113 GM Tube 1 APPLIC TOPICAL ×2 (05:39→21:32)
[2018-12-25] MEDS: Losartan Potassium 50 MG Tablet PO ×2 (05:40→17:43)
[2018-12-25] MEDS: APIXABAN 5 MG TABLET PO ×2 (05:40→17:44)
[2018-12-25] MEDS: Senna/Docusate Sodium 1 Tablet PO ×2 (05:40→17:44)
[2018-12-25] MEDS: Levothyroxine 50 MCG Tablet PO (05:40)
[2018-12-25] MEDS: Escitalopram Oxalate 20 MG Tablet PO (05:40)
[2018-12-25] MEDS: Pantoprazole Sodium 40 MG Tablet PO (05:40)
[2018-12-25] MEDS: Polyethylene Glycol 3350 17 GM PACKET PO (05:41)
[2018-12-25] MEDS: Furosemide 20 MG Tablet PO (05:41)
[2018-12-25] MEDS: Iron Polysaccharide Complex 150 MG CAPSULE PO (08:47)
[2018-12-25] MEDS: Gabapentin 300 MG Capsule 600 MG PO ×2 (08:48→17:43)
[2018-12-25] MEDS: carBAMazepine 200 MG Tablet 100 MG PO ×3 (08:48→17:44)
[2018-12-25] MEDS: Fenofibrate 145 MG Tablet PO (08:48)
--- NOTE | 2018-12-25 11:39 | CASEMGMT ---
Brief interview for mental status (BIMS) and mood (PHQ-9) completed on this day. BIMS score . PHQ-9 score 12/17. Jovani Gupta social work student
[2018-12-25] MEDS: Gabapentin 300 MG Capsule PO (11:45)
--- NOTE | 2018-12-25 13:13 | CASEMGMT ---
Reviewed and approved EXECUTIVE ADMIN student MDS documentation. Christofer GUERRERO, AVA
[2018-12-25 16:00] VITALS: BP 129/46; PULSE 61; RESP 18; TEMP 35.7; O2SAT 91
--- NOTE | 2018-12-25 16:33 | NURSING ---
WENT TO ASSESS PT LOWER EXTREM FOR POSSIBLE OPEN AREAS. DAMPNESS NOTED TO PANT LEG. UNABLE TO SEE LEGS DUE TO PANT LEGS ARE TOO NARROW TO LIFT UP. PT UP IN W/C IN HUSBANDS ROOM VISITING WITH HIM. SHE DECLINED TO RETURN TO HER ROOM SO THAT LEGS COULD BE ASSESSED AT THIS TIME. WILL ATTEMPT TO SEE PT LATER. PT WAS ABLE TO MAKE UP ARTIST BR SO THAT BUTTOCKS AND COCCYX COULD BE EVALUATED. NO OPEN AREAS NOTED. COCCYX PINK AND BLANCHING.
[2018-12-25] MEDS: Glycerin/Hypromellose/PEG400 15 ml Bottle 1 DRP EACH EYE (17:46)
[2018-12-25] MEDS: Ezetimibe 10 MG Tablet PO (21:32)
[2018-12-26] MEDS: Levothyroxine 50 MCG Tablet PO (05:21)
[2018-12-26] MEDS: Pantoprazole Sodium 40 MG Tablet PO (05:21)
[2018-12-26] MEDS: Senna/Docusate Sodium 1 Tablet 2 TABLET PO ×2 (05:21→17:11)
[2018-12-26] MEDS: Menthol/Lanolin/Calamine/Znox 113 GM Tube 1 APPLIC TOPICAL ×2 (05:21→22:39)
[2018-12-26] MEDS: Escitalopram Oxalate 20 MG Tablet PO (05:21)
[2018-12-26] MEDS: APIXABAN 5 MG TABLET PO ×2 (05:22→17:10)
[2018-12-26] MEDS: Losartan Potassium 50 MG Tablet PO ×2 (05:22→17:10)
[2018-12-26] MEDS: Polyethylene Glycol 3350 17 GM PACKET PO (05:22)
[2018-12-26] MEDS: Furosemide 20 MG Tablet PO (05:22)
[2018-12-26] MEDS: Gabapentin 300 MG Capsule 600 MG PO ×2 (07:48→17:10)
[2018-12-26] MEDS: carBAMazepine 200 MG Tablet 100 MG PO ×3 (07:48→17:11)
[2018-12-26] MEDS: Fenofibrate 145 MG Tablet PO (07:48)
[2018-12-26] MEDS: Iron Polysaccharide Complex 150 MG CAPSULE PO (07:48)
[2018-12-26] MEDS: Gabapentin 300 MG Capsule PO (11:45)
--- NOTE | 2018-12-26 11:56 | CASEMGMT ---
Insurance Clinical information sent. Pending continued stay approval at this time. Auth#[id number] Christofer GUERRERO, AVA
--- NOTE | 2018-12-26 13:19 | CASEMGMT ---
Insurance Continued stay denied with last cover day being 12/28/18 and resident to discharge or financial responsibility to begin on 12/29/18. Auth#[id number] Christofer GUERRERO, AVA
[2018-12-26 15:45] VITALS: BP 135/61; PULSE 63; RESP 18; TEMP 36.4; O2SAT 90
--- NOTE | 2018-12-26 16:44 | CASEMGMT ---
Social Work Spoke with resident and resident family in room. This social welfare clerk communicating that continued stay has been denied by insurance with last cover day being 12/28/18 and resident to discharge or financial responsibility to begin on 12/29/18. Resident/resident family voicing understanding and not sure about discharge plan. Currently planning is planning to initiate appeal, resident/resident family aware of appeal process and contact information for [facility]. This social welfare clerk broaching topic if appeal is lost what resident is planning to do. Resident/resident family discussing in detail with this social welfare clerk and deciding that resident would transition to an extended care facility that would be able to accept Medicaid Pending. This social welfare clerk inquiring if a medicaid application has been started, resident family reporting that a medicaid application has not been started. This social welfare clerk providing resident/resident family will Medicaid application. Resident financial power of tax attorney to come and visit resident this evening and plans to complete the Medicaid application along with gathering supportive documentation and get information back to this social welfare clerk by no later then noon tomorrow. [place] [place] [facility], even though they are reporting to have been discussing [facility] for resident for some time. Resident family to get back to this social welfare clerk by no later then noon tomorrow with a facility as well. Resident family aware that not all facilities accept Medicaid pending. Verbal and emotional support provided. Transfer form initiated. Proposed discharge date: 12/29/18 pending appeal. PLAN: Discharge to an ECF pending appeal outcome. Christofer GUERRERO, AVA
--- NOTE | 2018-12-26 21:10 | PCM.TXEXTCAR ---
- Diet 12/19/18 18:18 Diet: Cardiac/Low Cholesterol Food consistency:: Regular Liquid Consistency:: Regular/Thin Type of Dietary Supplement:: Ensure Complete Diet Comments: low sodium - Routine Orders/Code Status Suppository Type: Dulcolax 10mg Suppository Frequency: Daily PRN Routine Lab Work: CBC, BMP Code [facility] - Wound(s) Left posterior scalp Wound Type: Abrasion Above left eye Wound Type: Abrasion Left knee Wound Type: Abrasion Right buttock Wound Type: Abrasion Dressing Change: Mepilex Left lateral chest Wound Type: Scattered abrasions/reddness - Therapies Weight Bearing: Weight bearing as tolerated Extremity Affected:: Bilateral Lower Physical Therapy: Eval and Treat Occupational Therapy: Eval and Treat - Problem/Diagnosis (1) Fall Status: Acute Current Visit: Yes (2) Debility Status: Acute Current Visit: Yes (3) Atrial fibrillation Status: Chronic Current Visit: Yes (4) Coronary artery disease Status: Chronic Current Visit: Yes (5) Depression Status: Chronic Current Visit: Yes (6) Chronic diastolic heart failure Status: Chronic Current Visit: No (7) CVA (cerebral vascular accident) Status: Chronic Current Visit: No (8) Hypertension Status: Chronic Current Visit: No (9) Hyperlipidemia Status: Chronic Current Visit: No - Allergies/Procedures Done in Hospital Allergies/Adverse Reactions: Allergies atorvastatin [From Lipitor] Allergy (Verified 12/18/18 15:55) Unknown lisinopril Allergy (Verified 12/18/18 15:55) Unknown - Type of Care/Length of Stay Estimated LOS: More Than 30 Days Type of Care Needed: Intermediate Rehab Potential: Good Prognosis: Good - Additional Orders/Day of Discharge Day of Discharge: 12/29/18 - Dietary and Speech Recommendations Dietitian Recommendations/Changes: Rec diet change to Cardiac low sodium w/ fluid restriction as indicated r/t edema - Follow Up Care Primary Care Physician: Paul Cho MD [Primary Care Provider] - Please follow up with your Primary Care Physician in: 1 week.
--- NOTE | 2018-12-26 21:12 | PCM.DC.SUM ---
Discharge Date and Diagnosis - Problem List Patient Problems: Active and Suspected Problems (Last Reviewed 08/11/18 @ 15:01 by Rylan Kruse MD) Fall (Acute) Debility (Acute) Date of Admission: 12/19/18 Date of Discharge: 12/29/18 - Primary Discharge Diagnosis Active and Suspected Problems (Last Reviewed 08/11/18 @ 15:01 by Rylan Kruse MD) Fall (Acute) Debility (Acute) - Secondary Discharge Diagnosis Chronic Problems (Last Reviewed 08/11/18 @ 15:01 by Rylan Kruse MD) Atrial fibrillation (Chronic) Coronary artery disease (Chronic) Depression (Chronic) Non-ischemic cardiomyopathy (Chronic) Syncope (Chronic) Chronic diastolic heart failure (Chronic) SA node dysfunction (Chronic) Old non-ST elevation myocardial infarction (NSTEMI) (Chronic) CVA (cerebral vascular accident) (Chronic) Atherosclerosis of coronary artery of pala heart without angina pectoris (Chronic) CABG x 1 BRITO-LAD 04/22/2014 H/O coronary artery bypass surgery (Chronic 04/22/14) CABG x 1 BRITO-LAD 04/22/2014 @ [facility] Presence of cardiac pacemaker (Chronic 04/25/14) @ [facility] 04/25/14 RA Lead Revision 04/26/14 Chronic atrial fibrillation (Chronic) Hypertension (Chronic) Hyperlipidemia (Chronic) Hospital Course and Treatment Imaging Results: 12/19/18 18:18 Diet: Cardiac/Low Cholesterol Food consistency:: Regular Liquid Consistency:: Regular/Thin Type of Dietary Supplement:: Ensure Complete Diet Comments: low sodium Consultations 12/19/18 18:21 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 Discharge to extended care facility intermediate level of care pending appeal outcome. Patient Problems: Active and Suspected Problems (Last Reviewed 08/11/18 @ 15:01 by Rylan Kruse MD) Fall (Acute) Debility (Acute) - Physical Exam Vital Signs Temp Pulse Resp BP Pulse Ox 97.5 F L 63 18 135/61 H 90 12/26/18 15:45 12/26/18 15:45 12/26/18 15:45 12/26/18 15:45 12/26/18 15:45 Oxygen Delivery Method Room Air Weight: 69.144 kg Body Mass Index (BMI) 25.6 Finger Stick Blood Glucose 79 Intake and Output for Last 24 Hours 12/24/18 12/25/18 12/26/18 23:59 23:59 23:59 Intake Total 720 / 720 960 / 960 920 / 920 Balance 720 / 720 960 / 960 920 / 920 Discharge Diet: No Restrictions Discharge Activity: Return to Normal Activity, May Shower, Use Walker Weight Bearing Status: Weight bearing as tolerated Call your doctor if you observe: Fever of 101 or Higher, Inability to urinate, Inability to have a bowel movement, Shortness of breath, Chest pain, Uncontrolled pain Home Medications: Medications to take at Discharge Fenofibrate [Lofibra] 160 mg PO DAILY 11/21/13 Levothyroxine [Synthroid] 50 mcg PO DAILY 11/21/13 Ezetimibe [Zetia] 10 mg PO QHS 09/18/16 Potassium Chloride [Klor-Con M20] 20 meq PO DAILY 09/18/16 gabapentin 300 mg capsule 600 mg PO BID cap 04/22/18 Ergocalciferol (Vitamin D2) [Vitamin D2] 50,000 unit PO SA 11/12/18 Gabapentin [Neurontin] 300 mg PO LUNCH 11/12/18 Carbamazepine 100 mg PO TID 12/18/18 Escitalopram Oxalate [Lexapro] 20 mg PO DAILY 12/19/18 Furosemide [Lasix] 20 mg PO DAILY 12/19/18 Iron Poly/Vit C [Niferex-150] 150 mg PO DAILYCM 12/19/18 Losartan Potassium [Cozaar] 50 mg PO BID 12/19/18 Pantoprazole Sodium [Protonix] 40 mg PO DAILY 12/19/18 Apixaban [Eliquis] 5 mg PO BID tablet 12/26/18 Bisacodyl [Dulcolax] 10 mg PO DAILY PRN tablet 12/26/18 Menthol/Lanolin/Calamine/Znox [Calmoseptine Ointment] 1 applic TOPICAL 0600,2200 tube 12/26/18 Mineral Oil/Petrolatum,White [Eucerin] 1 applic TOPICAL 2200 jar 12/26/18 Nystatin Powder [Mycostatin Powder] 1 applic TOPICAL BID PRN bottle 12/26/18 Peg 400/Hypromellose/Glycerin [Artificial Tears] 1 drop EACH EYE Q1H PRN bottle 12/26/18 Polyethylene Glycol 3350 [Miralax] 17 gm PO DAILY packet 12/26/18 Primary Care Physician: Paul Cho MD [Primary Care Provider] - Please follow up with your Primary Care Physician in: 1 week. Disposition: Asstd Living/Non-Skill NH Minutes spent on discharge:: 35 Patient Condition:: Stable Medical Necessity - Tobacco Use Smoking Status: Former smoker Tobacco Use: Non-smoker Meaningful Use Info Meaningful Use Diagnoses (Choose all that apply): None applicable
[2018-12-26] MEDS: Ezetimibe 10 MG Tablet PO (22:39)
[2018-12-26] MEDS: Glycerin/Hypromellose/PEG400 15 ml Bottle 1 DRP EACH EYE (22:41)
[2018-12-27] MEDS: Senna/Docusate Sodium 1 Tablet 2 TABLET PO ×2 (04:25→18:14)
[2018-12-27] MEDS: Losartan Potassium 50 MG Tablet PO ×2 (04:25→18:13)
[2018-12-27] MEDS: Pantoprazole Sodium 40 MG Tablet PO (04:25)
[2018-12-27] MEDS: APIXABAN 5 MG TABLET PO ×2 (04:25→18:14)
[2018-12-27] MEDS: Polyethylene Glycol 3350 17 GM PACKET PO (04:26)
[2018-12-27] MEDS: Menthol/Lanolin/Calamine/Znox 113 GM Tube 1 APPLIC TOPICAL ×2 (04:26→19:47)
[2018-12-27] MEDS: Escitalopram Oxalate 20 MG Tablet PO (04:26)
[2018-12-27] MEDS: Levothyroxine 50 MCG Tablet PO (04:26)
[2018-12-27] MEDS: Furosemide 20 MG Tablet PO (04:26)
[2018-12-27 06:17] LABS: Absolute Lymphocyte Count 1.05 X10^3/ul (0.83-4.51); Absolute Neutrophil Count 3.9 X10^3/uL (2.0-7.7); Basophil# 0.07 X10^3/uL; Basophil% 1.2 % (0-1); Eosinophil# 0.14 X10^3/uL; Eosinophils% 2.5 % (0-5); Hemoglobin 11.9 g/dl (12.0-15.0); Lymphocyte # 1.05 X10^3/ul (4.0); Lymphocyte % 18.5 % (19-41); Mean Corp Hgb Conc 31.3 g/gl (32-36); Mean Corpuscular Hgb 30.3 pg (27.0-32.0); Mean Corpuscular Volume 96.7 fL (81-99); Mean Platelet Vol. 10.2 fl (6.2-12.0); Monocyte% 8.8 % (0-10); Neutrophil # 3.89 X10^3/uL (2.7-7.7); Neutrophil % 68.5 % (47-70); Platelet Count 328 K/mm3 (150-450); RBC Distribution Width CV 13.9 % (11.6-14.6); RBC Distribution Width SD 49.2 fl (35.1-43.9); Red Blood Count 3.93 M/mm3 (4.2-5.4); White Blood Count 5.7 K/mm3 (4.4-11.0)
[2018-12-27 06:20] LABS: POSITIVE COUNT NO; POSITIVE DIFFERENTIAL NO; POSITIVE MORPHOLOGY NO
[2018-12-27 06:38] LABS: Anion Gap 7 (5-15); BUN 44 mg/dL (7-18); BUN/Creat Ratio 42.7 RATIO (10-20); Calcium,Total 9.3 mg/dL (8.5-10.1); Chloride 107 mmol/L (98-107); Creatinine, Serum 1.03 mg/dL (0.55-1.02); EST Glomerular Filtration Rate 55 mL/min (>60); Est Glom Filt Rate - Afr Amer 66 mL/min (>60); Estimated Creatinine Clearance 39.85 ml/min; Glucose 91 mg/dL (74-106); Potassium 3.7 mmol/L (3.5-5.1); Sodium Level 142 mmol/L (136-145)
[2018-12-27] MEDS: Iron Polysaccharide Complex 150 MG CAPSULE PO (10:39)
[2018-12-27] MEDS: Gabapentin 300 MG Capsule 600 MG PO ×2 (10:40→18:13)
[2018-12-27] MEDS: Fenofibrate 145 MG Tablet PO (10:40)
[2018-12-27] MEDS: carBAMazepine 200 MG Tablet 100 MG PO ×3 (10:41→18:13)
--- NOTE | 2018-12-27 11:46 | CASEMGMT ---
Social Work Obtained completed Medicaid Application from resident family, faxed to [employer]. This elementary school social worker having telephone conversation with Gustavo, resident daughter. Rosalee reporting that family is still unsure about discharge plan at this time and looking into private duty aides. This elementary school social worker stressing with Gustavo that if that family is thinking that resident will discharge to a facility that this elementary school social worker will need to know sooner then later to be able to begin faxing information and inquiring whether or not the facility will accept resident under Medicaid pending. Gustavo voicing understanding but still unsure and plans to get back to this elementary school social worker. Support given. Request for medical records obtained from [facility] for appeal. Medical records faxed. Case I.D.# [id number] Proposed discharge date: 12/29/18 pending appeal. PLAN: Discharge to home alone vs. facility or continue with stay if appeal is won. Christofer GUERRERO, AVA
[2018-12-27] MEDS: Gabapentin 300 MG Capsule PO (14:26)
--- NOTE | 2018-12-27 15:03 | CASEMGMT ---
Social Work Telephone call to Gustavo, resident daughter as well as speaking with resident in room. All parties reporting to be unsure of discharge plan for resident on Tuesday (12/29/18) and that family/resident are still thinking about the plan and reporting that a facility might be what the choice is but resident/resident family are currently not providing this social worker school with a name of a facility, even though this social worker school had educated resident/resident family on how it can take time to set up senior living placement with Medicaid pending. Gustavo reporting to plan to get back to this social worker school tomorrow on a possible plan as Gustavo needs to talk further with resident and resident family. Gustavo aware that if family does not have a facility picked by late on or Tuesday morning that placement might not be an option and family may need to plan on resident returning to home. Therapy reporting that resident is Lorelei with walker and [facility] for other task and is not currently recommending a nursing facility at this time. Resident/resident family aware of therapy recommendations and how resident has been doing. Support given. Medicaid Pending #[id number]. Proposed discharge date: 12/29/18 pending appeal. PLAN: Discharge to home vs. facility pending appeal. Christofer GUERRERO, AVA
[2018-12-27] MEDS: Tuberculin,Purif.prot.deriv. 50 TU/ML Vial 5 ML ID (15:17)
[2018-12-27 15:50] VITALS: BP 145/53; PULSE 62; RESP 18; TEMP 36.8; O2SAT 93
--- NOTE | 2018-12-27 16:16 | CASEMGMT ---
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 This social contact worker communicating that a Medicaid pending number has been obtained and that private duty home health care is not covered by insurance but that skilled services are a benefit for resident. Burke voicing understanding and planning to discuss with family further and get back to this social contact worker on what facility resident will transition to at time of discharge. Support given. Proposed discharge date: 12/29/18 pending appeal. Will continue to follow. Christofer GUERRERO, AVA
--- NOTE | 2018-12-27 16:51 | CASEMGMT ---
Social Work Telephone call from Burke Turk reporting that family has decided on the [facility] as resident facility to discharge to. Spoke with resident in room. Resident is agreeable to discharge to the [facility] pending appeal and [facility] being able [facility] accept resident. Support given. Telephone call to the [facility], Zo[facility]. This social worker school making referral as well as providing Zoë with [facility] pending number. Proposed discharge date: 12/29/18 pending appeal. PLAN: Discharge to [facility], pending appeal and acceptance at the [facility]. CESAR Glover, AVA
[2018-12-27] MEDS: Ezetimibe 10 MG Tablet PO (19:45)
[2018-12-28] MEDS: Furosemide 20 MG Tablet PO (05:26)
[2018-12-28] MEDS: Losartan Potassium 50 MG Tablet PO ×2 (05:26→16:57)
[2018-12-28] MEDS: Pantoprazole Sodium 40 MG Tablet PO (05:26)
[2018-12-28] MEDS: Escitalopram Oxalate 20 MG Tablet PO (05:26)
[2018-12-28] MEDS: Levothyroxine 50 MCG Tablet PO (05:26)
[2018-12-28] MEDS: Senna/Docusate Sodium 1 Tablet 2 TABLET PO ×2 (05:26→16:57)
[2018-12-28] MEDS: APIXABAN 5 MG TABLET PO ×2 (05:27→16:57)
[2018-12-28] MEDS: Menthol/Lanolin/Calamine/Znox 113 GM Tube 1 APPLIC TOPICAL ×2 (05:28→22:16)
[2018-12-28] MEDS: Gabapentin 300 MG Capsule 600 MG PO ×2 (07:33→16:56)
[2018-12-28] MEDS: carBAMazepine 200 MG Tablet 100 MG PO ×3 (07:33→16:57)
[2018-12-28] MEDS: Iron Polysaccharide Complex 150 MG CAPSULE PO (07:33)
[2018-12-28] MEDS: Fenofibrate 145 MG Tablet PO (07:33)
--- NOTE | 2018-12-28 10:22 | CASEMGMT ---
Social Work Telephone call from Gustavo Chen reporting that family is planning to provide transportation for resident tomorrow to the [facility] pending appeal outcome. Level of Care and PASRR faxed to the [facility]. Proposed discharge date: 12/29/18 pending appeal. PLAN: Discharge to [facility] - pending appeal. Christofer GUERRERO, AVA
[2018-12-28] MEDS: Gabapentin 300 MG Capsule PO (12:33)
[2018-12-28 16:00] VITALS: BP 133/57; PULSE 61; RESP 18; TEMP 36.8; O2SAT 90
--- NOTE | 2018-12-28 16:02 | CASEMGMT ---
Social Work Level of Care obtained and faxed along with discharge information to [facility] [place] as [facility] is reporting to be able to accept resident pending appeal outcome. Proposed discharge date: 12/29/18 pending appeal. Christofer GUERRERO, AVA
[2018-12-28] MEDS: Ezetimibe 10 MG Tablet PO (22:15)
[2018-12-29 05:51] VITALS: BP 161/76; PULSE 63
[2018-12-29 05:56] VITALS: BP 151/76; PULSE 60
[2018-12-29] MEDS: Furosemide 20 MG Tablet PO (05:57)
[2018-12-29] MEDS: APIXABAN 5 MG TABLET PO ×2 (05:57→18:02)
[2018-12-29] MEDS: Senna/Docusate Sodium 1 Tablet 2 TABLET PO ×2 (05:57→18:02)
[2018-12-29] MEDS: Pantoprazole Sodium 40 MG Tablet PO (05:57)
[2018-12-29] MEDS: Escitalopram Oxalate 20 MG Tablet PO (05:57)
[2018-12-29] MEDS: Levothyroxine 50 MCG Tablet PO (05:57)
[2018-12-29] MEDS: Losartan Potassium 50 MG Tablet PO ×2 (05:58→18:02)
[2018-12-29] MEDS: Menthol/Lanolin/Calamine/Znox 113 GM Tube 1 APPLIC TOPICAL (06:01)
[2018-12-29] MEDS: Iron Polysaccharide Complex 150 MG CAPSULE PO (10:08)
[2018-12-29] MEDS: Fenofibrate 145 MG Tablet PO (10:08)
[2018-12-29] MEDS: Gabapentin 300 MG Capsule 600 MG PO ×2 (10:09→18:02)
[2018-12-29] MEDS: carBAMazepine 200 MG Tablet 100 MG PO ×3 (10:09→18:02)
--- NOTE | 2018-12-29 13:01 | CASEMGMT ---
Call received from Shana at [facility] stating pt has lost the appeal and Last covered day is 12/28/18. CASH spoke with pt dgt Gumaro on phone who has also received phone call from [facility]. At this time d/c plan is for pt to transfer to the [facility] [place]. Gumaro will transport pt and come to facility later this afternoon. Phone call to Delmi at [facility] and confirmed they are able to accept pt today. CASH met with pt and and explained the above. Pt expresses understandinga and is agreeable to d/c plan. Care team notified of d/c plan. MILANA Lombardo
[2018-12-29] MEDS: Gabapentin 300 MG Capsule PO (13:37)
[2018-12-29 15:33] VITALS: BP 131/50; PULSE 60; RESP 18; TEMP 36.1; O2SAT 94
--- NOTE | 2018-12-29 18:51 | NURSING ---
report called to Carmen at [facility].
--- NOTE | 2019-01-01 12:52 | CASEMGMT ---
Insurance SW notified Insurance of d/c to [facility] of 12/29/18. Auth # [id number] MILANA Lombardo
--- NOTE | 2019-01-01 14:07 | MDS.RN ---
Information for the mds was obtained from review of the clinical record, interview of resident, staff, and direct observation of resident's care.
== END 2018-12-29 18:50 | disposition skilled nursing facility (03) | DRG 948 ==
PROVIDERS: Admitting Provider Family Medicine Geriatric Medicine; Family Provider Family Medicine; PCP Family Medicine; Visit Provider Family Medicine Geriatric Medicine
DX: R53.81 Other malaise (principal); I50.32 Chronic diastolic (congestive) heart failure; E03.9 Hypothyroidism, unspecified; D50.9 Iron deficiency anemia, unspecified; K21.9 Gastro-esophageal reflux disease without esophagitis; E87.6 Hypokalemia; E78.5 Hyperlipidemia, unspecified; F32.9 Major depressive disorder, single episode, unspecified; I11.0 Hypertensive heart disease with heart failure; I25.10 Atherosclerotic heart disease of native coronary artery without angina pectoris; I48.2 Chronic atrial fibrillation; I25.2 Old myocardial infarction; G47.33 Obstructive sleep apnea (adult) (pediatric); Z95.0 Presence of cardiac pacemaker; Z87.891 Personal history of nicotine dependence; Z95.1 Presence of aortocoronary bypass graft
CPT/HCPCS: 36415; 80048; 85025; 90732; 92610; 97110; 97116; 97163; 97166; 97530; 97535; 97802; G0009

== ENCOUNTER → 2019-01-01 05:00 | Outpatient (REF) | payer MEDICARE, SELFPAY ==
[2018-12-19 22:24] VITALS: BMI 25.6
[2019-01-01 08:20] LABS: Hematocrit 35.6 % (37-47); Mean Corp Hgb Conc 30.9 g/gl (32-36); Mean Corpuscular Hgb 30.1 pg (27.0-32.0); Mean Corpuscular Volume 97.3 fL (81-99); Mean Platelet Vol. 10.3 fl (6.2-12.0); Platelet Count 296 K/mm3 (150-450); RBC Distribution Width CV 13.7 % (11.6-14.6); RBC Distribution Width SD 46.3 fl (35.1-43.9); Red Blood Count 3.66 M/mm3 (4.2-5.4); White Blood Count 3.3 K/mm3 (4.4-11.0)
[2019-01-01 08:25] LABS: Scan Indicated on CBC? Y/N NO
[2019-01-01 08:36] LABS: Anion Gap 8 (5-15); BUN 22 mg/dL (7-18); BUN/Creat Ratio 21.6 RATIO (10-20); Calcium,Total 8.7 mg/dL (8.5-10.1); Chloride 111 mmol/L (98-107); Creatinine, Serum 1.02 mg/dL (0.55-1.02); EST Glomerular Filtration Rate 56 mL/min (>60); Est Glom Filt Rate - Afr Amer 67 mL/min (>60); Glucose 86 mg/dL (74-106); Potassium 4.2 mmol/L (3.5-5.1); Sodium Level 148 mmol/L (136-145)
[2019-01-08 15:16] VITALS: BMI 25.0
== END ==
LOC: OLS.AVEB 05:00
PROVIDERS: Visit Provider Family Medicine
DX: E78.5 Hyperlipidemia, unspecified (principal)
CPT/HCPCS: 36415; 80048; 85027

== ENCOUNTER → 2019-01-05 05:00 | Outpatient (REF) | payer MEDICARE, SELFPAY ==
[2018-12-19 22:24] VITALS: BMI 25.6
[2019-01-05 08:25] LABS: Anion Gap 6 (5-15); BUN 22 mg/dL (7-18); BUN/Creat Ratio 21.6 RATIO (10-20); Calcium,Total 8.6 mg/dL (8.5-10.1); Chloride 110 mmol/L (98-107); Creatinine, Serum 1.02 mg/dL (0.55-1.02); EST Glomerular Filtration Rate 56 mL/min (>60); Est Glom Filt Rate - Afr Amer 67 mL/min (>60); Glucose 76 mg/dL (74-106); Potassium 4.6 mmol/L (3.5-5.1); Sodium Level 141 mmol/L (136-145)
[2019-01-08 15:16] VITALS: BMI 25.0
== END ==
LOC: OLS.AVED 05:00
PROVIDERS: Visit Provider Family Medicine
DX: R53.83 Other fatigue (principal)
CPT/HCPCS: 36415; 80048

== ENCOUNTER → 2019-01-15 04:00 | Outpatient (REF) | payer MEDICARE, SELFPAY ==
[2019-01-08 15:16] VITALS: BMI 25.0
[2019-01-15 09:30] LABS: Anion Gap 5 (5-15); BUN 25 mg/dL (7-18); BUN/Creat Ratio 22.9 RATIO (10-20); Calcium,Total 8.6 mg/dL (8.5-10.1); Chloride 110 mmol/L (98-107); Creatinine, Serum 1.09 mg/dL (0.55-1.02); EST Glomerular Filtration Rate 51 mL/min (>60); Est Glom Filt Rate - Afr Amer 62 mL/min (>60); Glucose 82 mg/dL (74-106); Sodium Level 145 mmol/L (136-145)
== END ==
LOC: OLS.AVED 04:00
PROVIDERS: Visit Provider Family Medicine
DX: I10 Essential (primary) hypertension (principal)
CPT/HCPCS: 36415; 80048

== ENCOUNTER → 2019-01-18 07:20 | Outpatient (REF) | payer MEDICARE, SELFPAY ==
[2019-01-08 15:16] VITALS: BMI 25.0
[2019-01-18 08:45] LABS: Carbamazepine (Tegretol) 4.5 ug/mL (4.0-12.0)
== END ==
LOC: OLS.AVEC 07:20
PROVIDERS: Visit Provider Family Medicine
DX: G40.909 Epilepsy, unspecified, not intractable, without status epilepticus (principal)
CPT/HCPCS: 36415; 80156

== ENCOUNTER → 2021-03-02 12:51 | Outpatient (CLI) | payer MEDICARE, MEDICAID, SELFPAY ==
[2021-02-12 13:52] VITALS: BMI 24.1
--- NOTE | 2021-03-02 12:54 | ART_ITS ---
Reason For Study: Pain and claudication Procedure A bilateral lower extremity continuous wave Doppler with analog waveform analysis and ankle brachial indexes. Left Segmental Pressures Left brachial= 146mmHg. Left posterior tibial artery = 162mmHg. Left dorsalis pedis artery = 167mmHg. Left digit = 92 mmHg. The left dorsalis pedis waveforms are triphasic. The left posterior tibial artery waveforms are triphasic. Right Segmental Pressures Right brachial= 143mmHg. Right posterior tibial artery = 157mmHg. Right dorsalis pedis artery = 164mmHg. Right digit = 79 mmHg. The right dorsalis pedis waveforms are triphasic. The right posterior tibial artery waveforms are triphasic. Indices The right ankle brachial index by the dorsalis pedis is 1.12. The right ankle brachial index by the posterior tibial artery is 1.08. The right digital-brachial index is 0.54. The left ankle brachial index by the dorsalis pedis is 1.14. The left ankle brachial index by the posterior tibial artery is 1.11. The left digital-brachial index is 0.63. VL/Ankle Brachial Index Interpretation Summary Normal bilateral lower extremity ankle-brachial indices with triphasic Doppler waveforms at the posterior tibial and dorsalis pedis levels Abnormal bilateral digital brachial indices of 0.54 on the right and 0.63 on th e left. This may be secondary to temperature variant or distal small vessel disease. Clinical corre lation would be appropriate. Ordering Physician: Rylan Kruse Referring Physician: Paul Cho MD Performed By: Heydi Fields RVT
== END ==
PROVIDERS: PCP Family Medicine; Referring Provider Internal Medicine Cardiovascular Disease; Visit Provider Internal Medicine Cardiovascular Disease
DX: I73.9 Peripheral vascular disease, unspecified (principal)
CPT/HCPCS: 93922

== ENCOUNTER 2021-06-10 14:51 | Emergency (ER) | payer MEDICARE, MEDICAID, SELFPAY ==
[2021-02-12 13:52] VITALS: BMI 24.1
[2021-06-10 14:52] VITALS: BP 149/70; PULSE 61; RESP 15; TEMP 36.4; BMI 28.4
--- NOTE | 2021-06-10 14:58 | CT_ITS ---
STUDY: CT CERVICAL SPINE WITHOUT CONTRAST REASON FOR EXAM: Female, 81 years old. Neck pain due to a fall. RADIATION DOSAGE (If Supplied By Facility): CTDIvol = ( 15.86 ) mGy, DLP = ( 319.74 ) mGycm TECHNIQUE: High resolution transaxial imaging was performed without contrast material. Sagittal and coronal images were reconstructed. Individualized dose optimization techniques were used for this CT. COMPARISON: Comparison is made with prior study dated 12/18/2018. FINDINGS: Normal craniovertebral junction. Normal anterior atlantoaxial articulation. Normal odontoid process. There is straightening of the normal cervical lordosis. Normal vertebral bodies and posterior osseous elements. C2-3: Facet joint osteoarthritis and hypertrophy on the left side. C3-4: Facet joint osteoarthritis and hypertrophy worse on the left side. No significant stenosis is seen. C4-5: Marked degree of disc space narrowing. Anterior spondylosis. Uncovertebral arthrosis. Bilateral facet joint osteoarthritis and hypertrophy worse on the left side. There is a moderate degree of bilateral neural foraminal stenosis. C5-6: Marked degree of disc space narrowing. Spondylosis. Uncovertebral arthrosis. Moderate degree of bilateral neural foraminal stenosis. Mild degree of central canal stenosis. C6-7: Marked degree of disc space narrowing. Uncovertebral arthrosis. Bilateral neural foraminal stenosis to a mild degree. C7-T1: Normal endplates. Normal disc height and morphology. Normal central canal and intervertebral neuroforamina. Calcification of the carotid bifurcations bilaterally. CT/Spine Cervical without Contras IMPRESSION: Multilevel degenerative changes, as described above. Electronically Signed: Zackery Henning MD at 15:37 EDT , Service support ,
--- NOTE | 2021-06-10 14:58 | CT_ITS ---
STUDY: CT BRAIN WITHOUT CONTRAST REASON FOR EXAM: Female, 81 years old. Head injury due to a fall. RADIATION DOSAGE (If Supplied By Facility): CTDIvol = ( 44.99 ) mGy, DLP = ( 779.24 ) mGycm TECHNIQUE: Transaxial CT imaging of the brain was performed without administration of intravenous contrast material. Individualized dose optimization techniques were used for this CT. COMPARISON: Comparison is made with prior examination dated 12/18/2018. FINDINGS: Normal soft tissue structures. Normal calvarium. There is moderate cerebral atrophy with widening of the extra-axial spaces and ventricular dilatation. There are areas of decreased attenuation within the white matter tracts of the supratentorial brain, consistent with microvascular disease changes. There is evidence of encephalomalacia in the left basal ganglion and insular cortex of the right temporal lobe. This is unchanged. Normal basal ganglia and thalami. Normal brainstem. There is mild cerebellar atrophy. There is no intracranial hemorrhage. There are no findings of an acute ischemic infarction. Normal visualized paranasal sinuses. CT/Brain/Head without Contrast IMPRESSION: Chronic involutional changes of the brain. Electronically Signed: Zackery Henning MD at 15:38 EDT , Service support ,
--- NOTE | 2021-06-10 15:00 | EX.ED.GENINJ ---
HPI History of Present Illness Chief Complaint: Fall Detail of Chief Complaint: Patient presents to the emergency department with a fall Informant: patient, family and SNF Narrative Narrative: Patient presents to the emergency department after sustaining a fall while at the [place] [facility] today. Patient has poor balance and is not supposed to be up on her own but went to the bathroom and fell getting off the toilet. She did hit her head and she is on Eliquis. She does not think she lost consciousness. She denies pain in her neck or chest or abdomen. Patient has history of Parkinson's as well as history of prior stroke and history of coronary artery disease. [facility] Medical History (Updated 06/10/21 @ 16:[address] Anna Araujo, ) Anemia Anxiety Atherosclerosis of coronary artery of [place] heart without angina pectoris Chronic atrial fibrillation Chronic diastolic heart failure CVA (cerebral vascular accident) (05/12/14) Depression Essential (primary) hypertension GERD (gastroesophageal reflux disease) GI bleed Hiatal hernia High-grade atrioventricular block Hyperlipidemia Hypothyroidism Liver cyst Non-ischemic cardiomyopathy Obstructive sleep apnea Old non-ST elevation myocardial infarction (NSTEMI) Home Medications levothyroxine 50 mcg PO DAILY 11/21/13 [History Last Taken 12/18/18 50 mcg] ezetimibe 10 mg PO QHS 09/18/16 [History Last Taken 12/18/18] carbamazepine 100 mg PO TID 12/18/18 [History Last Taken 12/18/18] escitalopram oxalate 20 mg PO DAILY 12/19/18 [History Last Taken Unknown] iron aspgl,ps complex-vit C-sa 150 mg PO DAILYCM 12/19/18 [History Last Taken Unknown] losartan 50 mg PO BID 12/19/18 [History Last Taken Unknown] pantoprazole 40 mg PO DAILY 12/19/18 [History Last Taken Unknown] bisacodyl 10 mg PO DAILY PRN tab 12/26/18 [Rx Last Taken Unknown] menthol-zinc oxide 1 applic TOPICAL 0600,2200 tube 12/26/18 [Rx Last Taken Unknown] peg [id number] 1 drp EACH EYE Q1H PRN bottle 12/26/18 [Rx Last Taken Unknown] polyethylene glycol 3350 17 gm PO DAILY packet 12/26/18 [Rx Last Taken Unknown] white petrolatum-mineral oil 1 applic TOPICAL 2200 jar 12/26/18 [Rx Last Taken Unknown] ergocalciferol (vitamin D2) 50 mcg (2,000 unit) tablet 2,000 unit PO DAILY 02/12/19 [History Last Taken Unknown] furosemide 40 mg tablet 40 mg PO DAILY 08/07/19 [History Last Taken Unknown] pregabalin 25 mg capsule 25 mg PO DAILY 08/07/19 [History Last Taken Unknown] pregabalin 50 mg capsule 50 mg PO QHS cap 08/07/19 [History Last Taken Unknown] apixaban 2.5 mg tablet 2.5 mg PO BID tablet 02/12/21 [History Last Taken Unknown] carbidopa 25 mg-levodopa 100 mg tablet 1 tablet PO BID tablet 02/12/21 [History Last Taken Unknown] Allergy/AdvReac Type Severity Reaction Status Date / Time atorvastatin [From Lipitor] Allergy Unknown Verified 06/10/21 14:51 lisinopril Allergy Unknown Verified 06/10/21 14:51 Family History Father CAD (coronary artery disease) Sister CAD (coronary artery disease) Myocardial infarction Hypertension Multiple sclerosis Surgical History H/O coronary artery bypass surgery (04/22/14) History of cataract extraction History of left heart catheterization (02/27/15) History of permanent cardiac pacemaker placement (04/25/14) History of tonsillectomy Hx of hemorrhoidectomy Social History (Updated 02/12/21 @ 14:[address] Rylan Kruse MD) Smoking Status: Former smoker how long ago did patient quit smokin years ago alcohol intake: current alcohol intake frequency: holidays/special occasions only caffeine: Yes Type: coffee Number of servings: 3 ROS ROS ED ROS Narrative Fall Constitutional Constitutional ED: Reports systems reviewed and no addt'l complaints, except as documented; Denies body ache(s), change in weight or chills Eyes Eyes: Denies acute decrease in peripheral vision, change in vision, double vision or loss of vision ENT ENT ED: Reports none; Denies ear pain, lip swelling, loss taste/smell, neck pain, otalgia or sore throat Cardiovascular Cardiovascular: Reports none; Denies abdominal pain, chest pain with activity, leg edema, lightheadedness, palpitations, rapid heart rate or syncope Respiratory/Chest Respiratory/Chest: Reports none; Denies change in mental status, dry cough, dyspnea, hemoptysis, shortness of breath at rest or shortness of breath with exertion Gastrointestinal Gastrointestinal: Reports none; Denies abdominal pain, change in stool character, diarrhea, hematemesis, hematochezia, melena, rectal bleeding or vomiting Genitourinary Genitourinary ED: Reports none; Denies abdominal discomfort, anuria, dysuria, genital pain or polyuria Musculoskeletal Musculoskeletal: Reports none; Denies arthralgias, back pain, difficulty walking, extremity pain, muscle weakness or myalgias Integumentary Reports none; Denies abscess or rash Neurologic Neurologic: Reports none and headache(s); Denies abnormal gait, confusion, focal weakness, frequent falls, loss of vision, numbness, paresthesias, radicular pain, vertigo or weakness Psychiatric Psychiatric: Reports systems reviewed and no addt'l complaints, except as documented and none; Denies behavioral changes, confusion, difficulty concentrating, hallucinations, suicidal ideation, tactile hallucinations or visual hallucinations Endocrine Endocrinology: Denies none, cold intolerance, excessive sweating, fatigue or heat intolerance Hematologic/Lymphatic Hematologic/Lymphatic: Reports none; Denies anemia, easy bleeding or easy bruising Allergic/Immunologic Allergic/Immunologic ED: Denies as per HPI, none, lip swelling, mouth swelling, throat swelling, tongue swelling or hives EXAM Physical Exam Const Vital Signs: 06/10/21 14:52 Temperature 97.5 F L Temperature Source Temporal Pulse Rate 61 Respiratory Rate 15 Blood Pressure 149/70 H Blood Pressure Mean 96 Oxygen Delivery Method Room Air Positive well nourished and well developed General Appearance ED: well developed and NAD HEENT Reports TM's clear and moist mucous membranes HEENT Narrative: Patient has a soft tissue hematoma to the right posterior occiput without bony step-offs noted. normocephalic; Negative for trauma or tenderness Tympanic Membrane ED: Yes TM's clear Eyes PERRL and EOMs intact bilaterally General Eye ED: Negative for pale conjunctiva or scleral icterus Neck no lymphadenopathy, supple and no JVD Neck Narrative: Patient has minimal diffuse tenderness of the C-spine. No bony step-offs or depressions noted. Good range of motion at the relatively painless. General: tenderness Chest Wall inspection of chest normal and palpation of chest normal Chest: Negative for tenderness Resp normal respiratory effort and clear to auscultation bilaterally Effort and Inspection: Negative for respiratory distress or pain with movement Auscultation: Negative for rhonchi, wheezes or diminished lung sounds Cardio regular rate, regular rhythm, S1 normal heart sound, S2 normal heart sound and no murmurs Peripheral Pulses: pulses 2+ throughout GI normal to inspection, nondistended, normoactive bowel sounds, soft to palpation, non-tender, non-distended and no masses Back/Spine no CVA tenderness and no thoracic nor lumbar tenderness Extremity normal to inspection General Extremety ED: Negative for edema General Extremity: Negative for edema Neuro oriented x3, CN's II-XII intact bilaterally, no sensory deficits noted and gait normal Sensorium / Orientation: awake, alert, oriented to person, oriented to place and oriented to time Motor Exam: strength 5/5 throughout and strength abnormal Psych mental status grossly normal Skin no rashes or lesions noted and no wounds MDM MDM MDM Narrative Medical decision making narrative: CT scan of the brain was unremarkable for acute traumatic injury. CT of the C-spine showed degenerative changes. Patient was discussed with her daughter and will be discharged back to the [place] [facility]. Radiography Diagnostic Testing: Radiology Impression Brain CT 06/10/21 14:58 IMPRESSION: Chronic involutional changes of the brain. Electronically Signed: Zackery Henning MD at 15:38 EDT , Service support , Cervical Spine CT 06/10/21 14:58 IMPRESSION: Multilevel degenerative changes, as described above. Electronically Signed: Zackery Henning MD at 15:37 EDT , Service support , Pelvis X-Ray 06/10/21 15:25 IMPRESSION: Moderate degree of osteoarthritis of both hip joints. No fracture is seen. Electronically Signed: Zackery Henning MD at 15:43 EDT , Service support , X-rays of pelvis 1 view obtained showed no fractures or dislocations as interpreted by myself. Radiology was in agreement. Discharge Plan Triage Chief Complaint: Fall ED Provider: Anna Araujo Dx/Rx/DC Orders Clinical Impression: Closed head injury, Fall Instructions: ED Mechanical Fall, ED Head Injury (Adult) Prescriptions: No Action ergocalciferol (vitamin D2) 2,000 unit tablet 2,000 unit tablet 2,000 unit PO DAILY RF: 0 furosemide 40 mg tablet 40 mg PO DAILY RF: 0 pregabalin 50 mg capsule 50 mg PO QHS RF: 0 pregabalin 25 mg capsule 25 mg PO DAILY RF: 0 carbidopa-levodopa 25-100 mg tablet 1 tablet PO BID RF: 0 apixaban 2.5 mg tablet 2.5 mg PO BID RF: 0 levothyroxine 50 MCG tablet 50 mcg PO DAILY RF: 0 ezetimibe 10 MG tablet 10 mg PO QHS RF: 0 carbamazepine 100 MG tablet,chewable 100 mg PO TID RF: 0 losartan 50 MG tablet 50 mg PO BID RF: 0 pantoprazole 40 MG tablet 40 mg PO DAILY RF: 0 escitalopram oxalate 20 MG tablet 20 mg PO DAILY RF: 0 iron aspgl,ps complex-vit C-sa 150 MG capsule 150 mg PO DAILYCM RF: 0 polyethylene glycol 3350 17 GM packet 17 gm PO DAILY RF: 0 bisacodyl 5 MG tablet 10 mg PO DAILY PRN (Reason: Constipation) RF: 0 white petrolatum-mineral oil 1 APPLIC cream 1 applic Topical 2200 RF: 0 peg [id number] 1 DROP bottle 1 drp EACH EYE Q1H PRN (Reason: DRY EYES) RF: 0 menthol-zinc oxide 1 APPLIC ointment 1 applic Topical 0600,2200 RF: 0 Primary Care Provider: Paul Cho Referrals: Paul Cho MD [Primary Care Provider] - 3-5 Days Disposition Disposition: Long Term Facility Discharge Location: [facility] [place]
--- NOTE | 2021-06-10 15:25 | RAD_ITS ---
STUDY: X-RAY - PELVIS REASON FOR EXAM: Female, 81 years old. Fall. TECHNIQUE: One view of the pelvis was obtained. COMPARISON: None. FINDINGS: There is a non-specific bowel gas pattern. Normal visualized soft tissue structures. There is narrowing with cortical sclerosis and osteophyte formation of the sacroiliac joint consistent with degenerative osteoarthritic changes. Normal visualized bilateral superior and inferior pubic rami. There are degenerative changes of the pubic symphysis with articular narrowing and sclerosis. Normal ischial tuberosities. Normal visualized right femoral head. There is osteoarthritic spur formation of the right acetabular rim. There is moderate articular joint space narrowing of the right hip. Normal visualized left femoral head. There is osteoarthritic spur formation of the left acetabular rim. There is moderate articular joint space narrowing of the left hip. RAD/Pelvis 1 or 2 Views IMPRESSION: Moderate degree of osteoarthritis of both hip joints. No fracture is seen. Electronically Signed: Zackery Henning MD at 15:43 EDT , Service support ,
[2021-06-10 16:12] VITALS: BP 141/60; PULSE 60; RESP 12; O2SAT 100
--- NOTE | 2021-06-10 16:25 | NURSING ---
CALLED [facility], ETA IS 90 MIN
[2021-06-10 17:05] VITALS: BP 135/60; PULSE 60; RESP 12; O2SAT 100
--- NOTE | 2021-06-10 17:09 | ED.RN ---
several attempts to call report to [facility] with no answer.
== END 2021-06-10 18:00 | disposition skilled nursing facility (03) ==
PROVIDERS: Emergency Provider Emergency Medicine; PCP Family Medicine
DX: S00.93XA Contusion of unspecified part of head, initial encounter (principal); I25.10 Atherosclerotic heart disease of native coronary artery without angina pectoris; G20 Parkinson's disease; I48.20 Chronic atrial fibrillation, unspecified; I11.0 Hypertensive heart disease with heart failure; I50.32 Chronic diastolic (congestive) heart failure; F32.9 Major depressive disorder, single episode, unspecified; K21.9 Gastro-esophageal reflux disease without esophagitis; E78.5 Hyperlipidemia, unspecified; E03.9 Hypothyroidism, unspecified; Z86.73 Personal history of transient ischemic attack (TIA), and cerebral infarction without residual deficits; Z79.02 Long term (current) use of antithrombotics/antiplatelets; Z79.899 Other long term (current) drug therapy; Z87.891 Personal history of nicotine dependence; W18.30XA Fall on same level, unspecified, initial encounter; Y93.89 Activity, other specified; Y92.121 Bathroom in nursing home as the place of occurrence of the external cause; Y99.8 Other external cause status
CPT/HCPCS: 70450; 72125; 72170; 99284